=== PATIENT | female | born 1990 | race Caucasian/White ===

== ENCOUNTER → 2017-12-03 09:15 | Outpatient (CLI) | payer OTHER, SELFPAY ==
[2017-12-03 13:48] LABS: Urine N gonorrhoeae NOT DETECTED
[2017-12-03 14:08] LABS: Urine Chlamydia NOT DETECTED
== END ==
PROVIDERS: PCP Family Medicine; Visit Provider Family Medicine
DX: Z11.3 Encounter for screening for infections with a predominantly sexual mode of transmission (principal); Z11.8 Encounter for screening for other infectious and parasitic diseases
CPT/HCPCS: 87491; 87591

== ENCOUNTER → 2018-03-29 08:56 | Outpatient (CLI) | payer OTHER, SELFPAY ==
--- NOTE | 2018-03-29 09:08 | DI.MRI.S_ITS ---
PROCEDURE: MR HEAD/BRAIN WO/W CON INDICATIONS: possible MS TECHNIQUE: Noncontrast axial T1 spin echo, axial T2 fast spin echo, sagittal and axial FLAIR, coronal T2 fast spin echo, axial gradient echo, axial diffusion and ADC through the brain. After the administration of contrast, axial and coronal 3D VIBE or T1 spin echo with fat saturation through the brain. COMPARISON: None. FINDINGS: Image quality: Excellent. CSF Spaces: Basal cisterns are patent. No extra-axial fluid collections. Ventricles are normal in size and shape. Brain: No midline shift. No intracranial bleeds or masses. No abnormal intracranial enhancement. The brainstem appears normal. Diffusion-weighted images demonstrate no acute ischemic insults. No chronic ischemic insults. Normal intravascular flow voids are present. Skull and face: Calvarial marrow is normal in signal. Orbits appear normal. Sinuses: Mucous retention cyst versus polyp is noted in the left sphenoid sinus. Minimal mucosal thickening noted in the maxillary sinuses. The mastoids appear clear. IMPRESSION: 1. No acute intracranial disease process. 2. No abnormal intracranial mass or suspicious postcontrast enhancement. 3. No abnormal intracranial signal. 4. Left sphenoid sinus mucous retention cyst versus polyp. Minimal bilateral maxillary sinus mucosal thickening. Dictated by: Gisell Chavez MD, PhD on 03/29/2018 at 10:30 Approved by: Gisell Chavez MD, PhD on 03/29/2018 at 10:34
--- NOTE | 2018-03-29 09:08 | DI.RAD.S_ITS ---
PROCEDURE: XR CHEST 2V INDICATIONS: chest pain with inspiration TECHNIQUE: 2 views of the chest were acquired. COMPARISON: [facility], , CHEST 2 VIEW, 09/07/2014, 10:38. FINDINGS: Surgical changes and devices: None. Lungs and pleura: Lungs are clear. No pleural effusions or pneumothorax. Mediastinum: Mediastinal contours are normal. Heart size is normal. Bones and chest wall: No suspicious bony abnormalities. Soft tissues appear unremarkable. IMPRESSION: No acute disease Dictated by: Florian Starks M.D. on 03/29/2018 at 10:19 Approved by: Florian Starks M.D. on 03/29/2018 at 10:20
[2018-03-29 09:46] LABS: Add Manual Diff / Slide Review NO; Basophils Absolute Auto 100 /uL (0-100); Basophils Percent Auto 1.3 % (0-2); Eosinophils Absolute Auto 200 /uL (0-450); Hematocrit 41.5 % (36-46); Hemoglobin 13.3 g/dL (12.0-16.0); Lymphocytes Absolute Auto 1900 /uL (1100-4500); Lymphocytes Percent Auto 46.2 % (25-40); Mean Corpuscular HGB Conc 32.1 % (30-36); Mean Corpuscular Hemoglobin 26.8 PG (26-34); Mean Corpuscular Volume 83.6 fL (80-100); Monocytes Absolute Auto 300 /uL (0-900); Monocytes Percent Auto 7.2 % (3-14); Neutrophils Absolute Auto 1600 /uL (1500-7000); Neutrophils Percent Auto 39.3 % (50-75); Platelet Count 369 X10^3/uL (150-400); Red Blood Cell Count 4.97 X10^6/uL (4.0-5.2); Red Cell Distribution Width 14.3 % (11.6-14.8); White Blood Cell Count 4.1 X10^3/uL (4.5-11.0)
[2018-03-29 10:09] LABS: Alanine Aminotransferase 19 IU/L (9-52); Albumin Globulin Ratio 1.2 (1.0-2.8); Alkaline Phosphatase 72 U/L (38-126); Aspartate Aminotransferase 25 IU/L (14-36); BUN Creatinine Ratio 18.9 (6-22); Bilirubin Total 0.5 mg/dL (0.2-1.3); Blood Urea Nitrogen 17 mg/dL (7-17); Calcium 9.8 mg/dL (8.4-10.2); Carbon Dioxide 26 mmol/L (22-32); Chloride 100 mmol/L (98-107); Estimated Glomerular Filt Rate > 60.0 mL/min (>60); Globulin 4.1 g/dL (1.7-4.1); Glucose 95 mg/dL (70-100); HEMOLYSIS < 15 (0-50); Potassium 4.6 mmol/L (3.4-5.1); Sodium 139 mmol/L (137-145); Total Protein 9.1 g/dL (6.3-8.2)
[2018-03-29 10:35] LABS: C-Reactive Protein Quant < 0.5 mg/dL (<1.0)
[2018-03-29 10:38] LABS: TSH w/ Reflex to FT4 2.09 uIU/mL (0.47-4.68)
[2018-03-29 10:56] LABS: Vitamin B12 402 pg/mL (239-931)
[2018-03-29 10:57] LABS: Vitamin D 25 Hydroxy (D3) 39.1 ng/mL (30.0-100.0)
[2018-03-31 18:19] LABS: Lamotrigine Lamictal 9.4 mcg/mL (4.0-18.0)
[2018-04-02 11:36] LABS: ANA Screen NEGATIVE (Negative); DNA Antibody Crithidia IFA NEGATIVE (Negative); Rheumatoid Factor <14 IU/mL; Sjogren Antiboday SS-A <1.0 NEG AI (<1.0 NEGATIVE); Sjogren Antiboday SS-B <1.0 NEG AI (<1.0 NEGATIVE); Sm Antibody <1.0 NEG AI (<1.0 NEGATIVE); Sm/RNP Antibody <1.0 NEG AI (<1.0 NEGATIVE)
== END ==
LOC: MRI 09:06 → LAB 09:08
PROVIDERS: Family Provider Family Medicine; PCP Family Medicine; Visit Provider Family Medicine
DX: R29.818 Other symptoms and signs involving the nervous system (principal); R20.2 Paresthesia of skin; G40.909 Epilepsy, unspecified, not intractable, without status epilepticus; E55.9 Vitamin D deficiency, unspecified; R29.90 Unspecified symptoms and signs involving the nervous system; R07.9 Chest pain, unspecified
CPT/HCPCS: 36415; 70553; 71046; 80053; 80175; 82306; 82607; 84443; 85025; 86038; 86140; 86430; A9579

== ENCOUNTER → 2018-05-27 15:43 | Outpatient (CLI) | payer OTHER, SELFPAY | PROVIDERS: Family Provider Family Medicine; PCP Family Medicine; Visit Provider Family Medicine | DX: N89.8 Other specified noninflammatory disorders of vagina (principal) | CPT/HCPCS: 87210 ==

== ENCOUNTER → 2018-06-07 07:42 | Outpatient (CLI) | payer OTHER, SELFPAY | PROVIDERS: Family Provider Family Medicine; PCP Family Medicine; Visit Provider Family Medicine | DX: R53.83 Other fatigue (principal) | CPT/HCPCS: 36415; 87207 ==

== ENCOUNTER → 2018-06-11 17:18 | Outpatient (CLI) | payer OTHER, SELFPAY ==
[2018-06-17 12:16] LABS: Travel History NG; When Visited NG
== END ==
PROVIDERS: PCP Family Medicine; Visit Provider Family Medicine
DX: R53.83 Other fatigue (principal)
CPT/HCPCS: 87207

== ENCOUNTER → 2019-06-20 13:10 | Outpatient (CLI) | payer OTHER, SELFPAY ==
--- NOTE | 2019-06-20 13:11 | DI.US.S_ITS ---
PROCEDURE: US PELVIC COMPLETE INDICATIONS: PELVIC PAIN, IUD TECHNIQUE: Real-time scanning was performed of the pelvic organs, with image documentation. Additional endovaginal scanning was necessary due to incomplete visualization of the adnexal and endometrial structures by transabdominal scanning. COMPARISON: None. FINDINGS: Transabdominal scanning: Limited scanning through the kidneys shows no hydronephrosis. No pathologic free abdominal or pelvic fluid. Endovaginal scanning: Uterus: Uterus is normal in size at 3.6 x 5.1 x 6.9 cm. The endometrium measures 3.7 mm in combined thickness. Centrally positioned IUD is noted. Ovaries: Right ovary measures 3.6 x 2.6 x 3.0 cm, and contains a complex presumed hemorrhagic cyst measuring 1.3 x 1.6 x 1.6 cm. The left ovary measures 3.5 x 2.0 x 2.3 cm, normal in echotexture. IMPRESSION: IUD in normal position centrally placed within the endometrial canal. No sign of ovarian inflammation or abnormal fluid collection. Presumed hemorrhagic cyst measuring only 1.6 cm in maximal dimension on the right. A definite source of pain is not found. Dictated by: Karri Chen M.D. on 06/20/2019 at 15:05 Approved by: Karri Chen M.D. on 06/20/2019 at 15:07
== END ==
PROVIDERS: PCP Family Medicine; Referring Provider Family Medicine; Visit Provider Family Medicine
DX: R10.2 Pelvic and perineal pain (principal); N83.291 Other ovarian cyst, right side; Z97.5 Presence of (intrauterine) contraceptive device
CPT/HCPCS: 76830; 76856

== ENCOUNTER → 2020-12-24 09:12 | Outpatient (CLI) | payer OTHER, SELFPAY ==
--- NOTE | 2020-12-24 09:13 | DI.US.S_ITS ---
PROCEDURE: US OB <= 14 WEEKS FETUS INDICATIONS: INITIAL VIABILITY DATING OUTSIDE/PRIOR DATING DATA: Last menstrual period (LMP): 10/28/2020 LMP-based estimated date of delivery (ROXANE): 08/04/2021. First dating scan (date and location): 12/24/2020. Estimated date of delivery (ROXANE) from first dating scan: 08/04/2021. TECHNIQUE: Real-time scanning was performed of the fetus and maternal pelvic organs, with image documentation. Endovaginal scanning was also performed to better visualize the fetus and maternal ovaries. COMPARISON: None. FINDINGS: Embryo: 1.7 cm corresponding to 8 weeks 1 day. Heart rate: 150 Measurement variability in dating: +/- 4 weeks by LMP, +/- 7 days by mean sac diameter (use before 6 weeks gestation if crown-rump length not able to be measured), +/- 5 days by crown-rump length (up to 8 weeks 6 days gestation), +/- 7 days by crown-rump length (up to 13 weeks 6 days gestation). Maternal organs: The left ovary is not visualized. Right corpus luteal cyst present. IMPRESSION: 8 week 1 day single living IUP. Dictated by: Benito Freeman RR Interpreted: Misael Hernandez MD on 12/24/2020 at 10:08 Transcribed by: ROMY on 12/24/2020 at 10:09 Approved by: Misael Hernandez M.D. on 12/24/2020 at 11:23
== END ==
PROVIDERS: PCP Family Medicine; Referring Provider Family Medicine; Visit Provider Family Medicine
DX: Z34.01 Encounter for supervision of normal first pregnancy, first trimester (principal); Z3A.08 8 weeks gestation of pregnancy
CPT/HCPCS: 76801

== ENCOUNTER 2021-02-03 18:29 | Emergency (ER) | payer OTHER, SELFPAY ==
--- NOTE | 2021-02-03 18:35 | DI.US.S_ITS ---
PROCEDURE: US OB LIMITED INDICATIONS: BLEEDING OUTSIDE/PRIOR DATING DATA: Last menstrual period (LMP): 10/28/2020. LMP-based estimated date of delivery (ROXANE): 08/04/2021. First dating scan (date and location): 12/24/2020. Estimated date of delivery (ROXANE) from first dating scan: 08/04/2021. TECHNIQUE: Real-time scanning was performed of the fetus, with image documentation. Endovaginal scanning: No COMPARISON: [facility], OB <= 14 WEEKS FETUS, 12/24/2020, 9:29. FINDINGS: A single living intrauterine gestation is present. Presentation: Variable. Placenta: Placental position is anterior, without previa. heart rate: 162 beats per minute. Portal-rump length is 69 mm, corresponding to a 13 week 1 day gestation. There is a possible secondary anti embryo an infestation all sac corresponding to an 8 week 2 day gestation, measuring roughly 46 mm diameter. IMPRESSION: 1. Single living intrauterine gestation. 2. Anechoic focus adjacent to the living intrauterine gestation, which may represent demise of a twin versus loculated amniotic fluid collection versus chronic perigestational hemorrhage. No evidence of acute perigestational hemorrhage. Dictated by: Renetta Heller M.D. on 02/03/2021 at 20:54 Approved by: Renetta Heller M.D. on 02/03/2021 at 20:57
[2021-02-03 18:44] VITALS: BP 144/85; PULSE 108; RESP 18; TEMP 37.3; O2SAT 97; BMI 23.3
--- NOTE | 2021-02-03 18:45 | ED.FEMALEGU ---
HPI - Female Genitourinary General Chief complaint: Vaginal Bleeding Stated complaint: 14 Wks Preg, Bleeding/Pain Time Seen by Provider: 02/03/21 18:35 History of Present Illness HPI Narrative: 30-year-old female nonsmoker with history of epilepsy presents with her significant other and a chief complaint of lower pelvic cramping and vaginal bleeding for the past hour or 2. She is a at 14 weeks that had a normal ultrasound at 8 weeks. She is not dizzy nor weak or lightheaded. She has had no fever or chills. She is no longer having any discomfort. She denies any abnormal activities, changes in medications or diet. She states that she was in her normal state of health other than being somewhat constipated for the past few days. About 30 minutes prior to arrival she felt some lower abdominal cramping and upon standing felt blood dripping down her leg. She had some sharp pain which was very brief in without any obvious provocation or palliation which resolved prior to her arrival. Related Data Home Medications Medication Instructions Recorded Confirmed Lactobacillus acidophilus 10 10,000 mmu cells PO DAILY 01/06/21 01/07/21 billion cell capsule (Probiotic) folic acid 1 mg tablet 1 mg PO DAILY 01/06/21 01/07/21 lamotrigine 200 mg tablet,extended 200 mg PO DAILY 01/06/21 01/07/21 release 24 hr lamotrigine 25 mg tablet,extended 25 mg PO DAILY PRN 01/06/21 01/07/21 release 24 hr prenat.vits,uzma,foa-karm-ybxtg 1 tab PO DAILY 01/06/21 01/07/21 Previous Rx's Medication Instructions Recorded lorazepam 1 mg tablet 0.5 mg PO DAILY PRN #4 tab 06/15/20 Allergies Allergy/AdvReac Type Severity Reaction Status Date / Time No Known Drug Allergies Allergy Verified 01/06/21 15:41 Patient History Medical History Chronic back pain (~1996) Encounter for removal of intrauterine contraceptive device (IUD) (~06/2020) Epilepsy (~2001) Fibromyalgia (~2007) Sinusitis Surgical History H/O oral surgery (~2004) [place] teeth extracted (~2019) Family History Mother Hyperlipidemia Grandfather Myocardial infarction Grandmother History of heart attack Diabetes mellitus Hypertension Grandfather History of heart attack Hypertension Diabetes mellitus Father Hypertension Diabetes mellitus Grandmother No problems noted. Exam Narrative Exam Narrative: GENERAL: [30] year old patient appears stated age. Well-developed patient, in mild distress. GCS 15, anxious, tearful HEAD: Atraumatic. Normocephalic. EYES: Pupils equal round and reactive. Extraocular motions intact. No scleral icterus. No injection or drainage. ENT: Nose without bleeding, purulent drainage. Throat without erythema, tonsillar hypertrophy or exudate. Airway patent. NECK: Trachea midline. Non tender CARDIOVASCULAR: Regular rate and rhythm without murmurs, gallops, or rubs. RESPIRATORY: Clear to auscultation. Breath sounds equal bilaterally. No wheezes, rales, or rhonchi. GASTROINTESTINAL: Abdomen soft, mild tenderness in the suprapubic region, nondistended. EXTREMITIES: No edema or joint tenderness. BACK: Nontender without deformity or crepitance. No flank tenderness. NEURO: AOx3. SKIN: No rash or erythema of visible areas Initial Vital Signs Initial Vital Signs: Vital Signs Temperature 99.2 F 02/03/21 18:44 Pulse Rate 108 H 02/03/21 18:44 Respiratory Rate 18 02/03/21 18:44 Blood Pressure 144/85 H 02/03/21 18:44 Pulse Oximetry 97 02/03/21 18:44 Course Orders Ordered: ED Orders 02/03/21 18:35 US OB limited Stat Complete Blood Count AUTO DIFF Stat Comprehensive Metabolic Panel Stat HCG Quantitative /Beta subunit Stat 02/03/21 18:36 Type and Screen Stat 02/03/21 18:48 Lamotrigine Lamictal Stat 02/03/21 21:10 Urine Microscopic Stat Vital Signs Vital signs: Vital Signs - 8 hr 02/03/21 18:44 02/03/21 21:22 Temperature 99.2 F Pulse Rate 108 H 84 Respiratory Rate 18 20 Blood Pressure 144/85 H 106/80 Pulse Oximetry 97 100 MDM - Female Genitourinary Lab Data Result diagrams: 02/03/21 18:35 02/03/21 18:35 Labs: Lab Results 02/03/21 02/03/21 02/03/21 Range/Units 18:35 18:35 18:36 WBC 6.1 (4.5-11.0) X10^3/uL RBC 4.09 (4.0-5.2) X10^6/uL Hgb 12.1 (12.0-16.0) g/dL Hct 35.3 L (36-46) % MCV 86.2 (80-100) fL MCH 29.5 (26-34) PG MCHC 34.3 (30-36) % RDW 13.5 (11.6-14.8) % Plt Count 287 (150-400) X10^3/uL Neut % (Auto) 55.1 (50-75) % Lymph % (Auto) 32.4 (25-40) % [place] % (Auto) 11.4 (3-14) % Eos % (Auto) 0.5 L (2-4) % Baso % (Auto) 0.6 (0-2) % Neut # (Auto) 3400 (8699-1730) /uL Lymph # (Auto) 2000 (2646-6861) /uL [place] # (Auto) 700 (0-900) /uL Eos # (Auto) 0 (0-450) /uL Baso # (Auto) 0 (0-100) /uL Sodium 134 L (137-145) mmol/L Potassium 3.6 (3.4-5.1) mmol/L Chloride 102 (98-107) mmol/L Carbon Dioxide 24 (22-32) mmol/L BUN 9 (7-17) mg/dL Creatinine 0.59 (0.52-1.04) mg/dL Estimated GFR > 60.0 (>60) mL/min BUN/Creatinine Ratio 15.3 (6-22) Glucose 101 H (70-100) mg/dL Calcium 9.7 (8.4-10.2) mg/dL Total Bilirubin 0.3 (0.2-1.3) mg/dL AST 28 (14-36) IU/L ALT 16 (<35) IU/L Alkaline Phosphatase 56 (38-126) U/L Total Protein 7.6 (6.3-8.2) g/dL Albumin 4.1 (3.5-5.0) g/dL Globulin 3.5 (1.7-4.1) g/dL Albumin/Globulin Ratio 1.2 (1.0-2.8) HCG, Quant 07871 mIU/mL Urine RBC (0-5/HPF) Urine WBC (0-5/HPF) Urine Bacteria (None) Ur Culture Indicated? Blood Type O Positive Antibody Screen Negative 02/03/21 Range/Units 21:10 WBC (4.5-11.0) X10^3/uL RBC (4.0-5.2) X10^6/uL Hgb (12.0-16.0) g/dL Hct (36-46) % MCV (80-100) fL MCH (26-34) PG MCHC (30-36) % RDW (11.6-14.8) % Plt Count (150-400) X10^3/uL Neut % (Auto) (50-75) % Lymph % (Auto) (25-40) % [place] % (Auto) (3-14) % Eos % (Auto) (2-4) % Baso % (Auto) (0-2) % Neut # (Auto) (4724-9726) /uL Lymph # (Auto) (5867-9508) /uL [place] # (Auto) (0-900) /uL Eos # (Auto) (0-450) /uL Baso # (Auto) (0-100) /uL Sodium (137-145) mmol/L Potassium (3.4-5.1) mmol/L Chloride (98-107) mmol/L Carbon Dioxide (22-32) mmol/L BUN (7-17) mg/dL Creatinine (0.52-1.04) mg/dL Estimated GFR (>60) mL/min BUN/Creatinine Ratio (6-22) Glucose (70-100) mg/dL Calcium (8.4-10.2) mg/dL Total Bilirubin (0.2-1.3) mg/dL AST (14-36) IU/L ALT (<35) IU/L Alkaline Phosphatase (38-126) U/L Total Protein (6.3-8.2) g/dL Albumin (3.5-5.0) g/dL Globulin (1.7-4.1) g/dL Albumin/Globulin Ratio (1.0-2.8) HCG, Quant mIU/mL Urine RBC None seen (0-5/HPF) Urine WBC None seen (0-5/HPF) Urine Bacteria None seen (None) Ur Culture Indicated? Cult not indicated Blood Type Antibody Screen Urine Dip Bedside Urine Glucose Negative Bedside Urine Bilirubin - Negative Bedside Urine Ketone +++ 80 Urine Specific [place] 1.03 Bedside Urine Occult Blood +++ Bedside Urine pH 6 Bedside Urine Protein + 30 Bedside Urine Urobilinogen - Negative Bedside Urine Nitrite - Negative Bedside Urine Leukocytes - Negative Esterase MDM Narrative Medical decision making narrative: Patient with reassuring history and physical exam. Vitals are stable, minimal ongoing bleeding, H&H stable. No indication or need for RhoGAM. Ultrasound reassuring. I have consulted with on-call OB, given normal ultrasound at 8 weeks a twin gestation is highly unlikely. Most likely source of bleeding is and old subchorionic hemorrhage that ?let go ?today. Patient's pain is well controlled and she is tolerating orals. She is given extensive return precautions and questions have been answered to her apparent satisfaction Discharge Plan Departure Patient Disposition: Home Clinical Impression: Hemorrhage affecting in second trimester Instructions: DI for Vaginal Bleeding During Activity Restrictions/Additional Instructions: *You have been diagnosed with [vaginal bleeding in . Your history, physical exam, labs and ultrasound are very reassuring. *What to do: *Please continue to take your regular medications as directed. [ ] New medication prescriptions sent to your pharmacy: [ ] [ ] New medication written as a paper prescription [x ] No new medications given *Please follow up with your primaryOB provider in 2-3 days, call for an appointment. Let them know you were seen in the Emergency Department and that we ask that you be seen in follow up. We will electronically transmit a record of today's note. Dr. Llamas will likely repeat some labs and maybe an ultrasound *Return to Emergency Department if you should have any new, worsening or concerning symptoms, such as [increased or more persistent pain, bleeding through more than 1 pad per hour, fever greater than 101 F or other bothersome symptoms Prescriptions: No Action lorazepam 1 mg tablet 0.5 mg PO DAILY PRN (Reason: lab draw) Qty: 4 0RF lamotrigine 200 mg tablet extended release 24hr 200 mg PO DAILY 0RF lamotrigine 25 mg tablet extended release 24hr 25 mg PO DAILY PRN0RF prenat.vits,uzma,skc-jxji-igikw Tablet 1 tab PO DAILY 0RF folic acid 1 mg tablet 1 mg PO DAILY 0RF Probiotic 10 billion cell capsule 10,000 mmu cells PO DAILY 0RF Referrals: Gilda Llamas DO [Primary Care Provider] -
[2021-02-03 19:17] LABS: Add Manual Diff / Slide Review NO; Basophils Absolute Auto 0 /uL (0-100); Basophils Percent Auto 0.6 % (0-2); Eosinophils Absolute Auto 0 /uL (0-450); Eosinophils Percent Auto 0.5 % (2-4); Hematocrit 35.3 % (36-46); Hemoglobin 12.1 g/dL (12.0-16.0); Lymphocytes Absolute Auto 2000 /uL (1100-4500); Lymphocytes Percent Auto 32.4 % (25-40); Mean Corpuscular HGB Conc 34.3 % (30-36); Mean Corpuscular Hemoglobin 29.5 PG (26-34); Mean Corpuscular Volume 86.2 fL (80-100); Monocytes Absolute Auto 700 /uL (0-900); Monocytes Percent Auto 11.4 % (3-14); Neutrophils Absolute Auto 3400 /uL (1500-7000); Neutrophils Percent Auto 55.1 % (50-75); Platelet Count 287 X10^3/uL (150-400); Red Blood Cell Count 4.09 X10^6/uL (4.0-5.2); Red Cell Distribution Width 13.5 % (11.6-14.8); White Blood Cell Count 6.1 X10^3/uL (4.5-11.0)
[2021-02-03 19:28] LABS: Alanine Aminotransferase 16 IU/L (<35); Albumin 4.1 g/dL (3.5-5.0); Albumin Globulin Ratio 1.2 (1.0-2.8); Alkaline Phosphatase 56 U/L (38-126); Aspartate Aminotransferase 28 IU/L (14-36); BUN Creatinine Ratio 15.3 (6-22); Bilirubin Total 0.3 mg/dL (0.2-1.3); Blood Urea Nitrogen 9 mg/dL (7-17); Calcium 9.7 mg/dL (8.4-10.2); Carbon Dioxide 24 mmol/L (22-32); Chloride 102 mmol/L (98-107); Estimated Glomerular Filt Rate > 60.0 mL/min (>60); Globulin 3.5 g/dL (1.7-4.1); Glucose 101 mg/dL (70-100); HEMOLYSIS < 15 (0-50); Potassium 3.6 mmol/L (3.4-5.1); Sodium 134 mmol/L (137-145); Total Protein 7.6 g/dL (6.3-8.2)
[2021-02-03 19:45] LABS: HCG Quantitative /Beta subunit 14181 mIU/mL
[2021-02-03 21:22] VITALS: BP 106/80; PULSE 84; RESP 20; O2SAT 100
[2021-02-03 21:27] LABS: Bacteria Urine None Seen; Culture Indicated Urine Cult Not Indicated; RBC Urine None Seen (0-5/HPF); WBC Urine None Seen (0-5/HPF)
[2021-02-09 12:04] LABS: Lamotrigine Lamictal 5.1 ug/mL (2.0-20.0)
== END 2021-02-03 21:37 | disposition home or self-care (01) ==
PROVIDERS: Emergency Provider Emergency Medicine; PCP Family Medicine
DX: O20.9 Hemorrhage in early pregnancy, unspecified (principal); Z3A.14 14 weeks gestation of pregnancy
CPT/HCPCS: 36415; 76812; 76815; 80053; 80175; 81003; 81015; 84702; 85025; 86850; 86900; 86901; 99284

== ENCOUNTER → 2021-02-25 06:52 | Outpatient (CLI) | payer OTHER, SELFPAY ==
[2021-02-25 07:49] LABS: Add Manual Diff / Slide Review NO; Basophils Absolute Auto 0 /uL (0-100); Basophils Percent Auto 0.5 % (0-2); Eosinophils Absolute Auto 100 /uL (0-450); Eosinophils Percent Auto 2.1 % (2-4); Lymphocytes Absolute Auto 1700 /uL (1100-4500); Lymphocytes Percent Auto 29.1 % (25-40); Mean Corpuscular HGB Conc 34.4 % (30-36); Mean Corpuscular Hemoglobin 29.9 PG (26-34); Mean Corpuscular Volume 86.8 fL (80-100); Monocytes Absolute Auto 400 /uL (0-900); Monocytes Percent Auto 7.4 % (3-14); Neutrophils Absolute Auto 3600 /uL (1500-7000); Neutrophils Percent Auto 60.9 % (50-75); Platelet Count 242 X10^3/uL (150-400); Red Blood Cell Count 3.69 X10^6/uL (4.0-5.2); White Blood Cell Count 5.9 X10^3/uL (4.5-11.0)
[2021-02-25 08:05] LABS: Appearance Urine UA CLEAR; Bilirubin Urine UA NEGATIVE (NEGATIVE); Color Urine UA YELLOW; Glucose Urine UA NEGATIVE (Negative); Ketones Urine UA NEGATIVE (NEGATIVE); Leukocyte Esterase Urine UA NEGATIVE (NEGATIVE); Nitrite Urine UA NEGATIVE (Negative); Occult Blood Urine UA TRACE-LYSED (Negative); Protein Urine UA NEGATIVE (Negative); Specific Gravity Urine UA 1.015 (1.000-1.035); Urobilinogen Urine UA 0.2 E.U./dL (0.2)
[2021-02-25 08:51] LABS: Hepatitis B Surface Antigen NEGATIVE s/c (NEGATIVE)
[2021-02-25 09:08] LABS: HIV 1 & 2 Ab/Ag 4th Gen Combo NEGATIVE (NEGATIVE); Hep C Virus Ab w/Reflex Quant NEGATIVE s/c (NEGATIVE)
[2021-02-26 06:36] LABS: RPR Screen Non Reactive (Non Reactive)
[2021-02-26 08:12] LABS: Varicella IgG Antibody 1403 index (Immune >165)
[2021-02-28 22:59] LABS: AFP, Serum 22.5 ng/mL (.); Calc Gestational Age Ultrasound (.); Estriol, Free 0.63 ng/mL (.); Inhibin A, Dimeric 84.83 pg/mL (.); Inhibin A, MoM 0.49 (.); Maternal Ethnicity Caucasian (.); Maternal Weight 128 lbs (.); Number of Fetuses No (.); OSBR Risk 1 IN 10000 (.); Results Report (.); Test Results *Screen Positive* (.); hCG, Serum 11092 mIU/mL (.)
== END ==
PROVIDERS: PCP Family Medicine; Referring Provider Psychiatry & Neurology Neurology; Visit Provider Psychiatry & Neurology Neurology
DX: G40.909 Epilepsy, unspecified, not intractable, without status epilepticus (principal); Z34.01 Encounter for supervision of normal first pregnancy, first trimester; Z34.92 Encounter for supervision of normal pregnancy, unspecified, second trimester; Z3A.17 17 weeks gestation of pregnancy
CPT/HCPCS: 36415; 80055; 80175; 81003; 82105; 82677; 84702; 86336; 86787; 86803; 86850; 86900; 86901; 87086; 87389

== ENCOUNTER → 2021-03-17 07:43 | Outpatient (CLI) | payer OTHER, SELFPAY | PROVIDERS: PCP Family Medicine; Referring Provider Family Medicine; Visit Provider Family Medicine | DX: Z34.90 Encounter for supervision of normal pregnancy, unspecified, unspecified trimester (principal); Z53.8 Procedure and treatment not carried out for other reasons ==

== ENCOUNTER 2021-04-27 15:37 | Outpatient (CLI) | payer OTHER, SELFPAY ==
--- NOTE | 2021-04-27 17:01 | PM.OBTRLD ---
Visit Information Visit Information Date of evaluation: 04/27/21 Primary OB Provider: Gilda Llamas Reason for Evaluation: Yes non-stress test non-stress test reason: decreased movement Comments/Additional reasons for admission: Pt is a 30yo at 25w6d here for decreased movement. Pt reports little to no movement for the last 3 days. She has had intermittent sharp abdominal cramping at night as well. No vaginal bleeding, LOF. complicated by Trisomy 18. [facility] Medical History (Updated 04/27/21 @ 17:03 by Indigo Underwood MD) Chronic back pain (~1996) Encounter for removal of intrauterine contraceptive device (IUD) (~06/2020) Epilepsy (~2001) Fibromyalgia (~2007) Sinusitis Trisomy 18 of fetus in current Surgical History H/O oral surgery (~2004) [place] teeth extracted (~2019) Family History Mother Hyperlipidemia Grandfather Myocardial infarction Grandmother History of heart attack Diabetes mellitus Hypertension Grandfather History of heart attack Hypertension Diabetes mellitus Father Hypertension Diabetes mellitus Grandmother No problems noted. 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.) current occupational exposures/hazards: No special calderon needs: No seatbelt use: always do you feel safe at home: Yes Smoking Status: Never smoker second hand exposure: No alcohol intake: former (Not since 07/2020 once they started trying.) substance use type: does not use during the past year weight has: remained stable well-balanced diet: about half the time (r/t nausea, gag reflex.) daily servings fruits/ve-4 caffeine: No Type(s) of exercise: walking and normal ROM and activity frequency: daily duration: 30-45 minutes/day Evaluation Evaluation Baseline heart rate: 150 Variability: Moderate (11-25) monitor accelerations: Present Monitor Decelerations: Absent Category of Tracing: Reactive Diagnosis, Plan/Disposition Final Diagnosis (1) Trisomy 18 of fetus in current : Status: Acute (2) Decreased movement: Status: Acute Plan/Disposition Plan: Pt is a 30yo at 25w6d here due to decreased movement in the setting of complicated by Trisomy 18. Reactive NST today. Discussed kick counts at home. Pt already very aware of high risk of intrauterine demise due to Trisomy 18. Stable for d/c home today. OB Disposition: home
== END 2021-04-27 16:45 | disposition home or self-care (01) ==
LOC: LABOR 15:52 → OB 04-28 07:48
PROVIDERS: PCP Family Medicine; Referring Provider Obstetrics & Gynecology; Visit Provider Obstetrics & Gynecology
DX: O36.8120 Decreased fetal movements, second trimester, not applicable or unspecified (principal); Z3A.25 25 weeks gestation of pregnancy; O35.1XX0 Maternal care for (suspected) chromosomal abnormality in fetus, not applicable or unspecified
CPT/HCPCS: 59025; G0378; G0379

== ENCOUNTER → 2021-05-27 07:00 | Outpatient (CLI) | payer OTHER, SELFPAY ==
[2021-05-27 08:40] LABS: Hematocrit 33.7 % (36-46); Hemoglobin 11.4 g/dL (12.0-16.0)
[2021-05-27 08:55] LABS: GTT (PREG) 1 Hour PP 50gm Dose 91 mg/dL (76-139)
[2021-05-30 14:14] LABS: Lamotrigine Lamictal 5.1 ug/mL (2.0-20.0)
== END ==
PROVIDERS: PCP Family Medicine; Referring Provider Family Medicine; Visit Provider Family Medicine
DX: G40.909 Epilepsy, unspecified, not intractable, without status epilepticus (principal); Z3A.27 27 weeks gestation of pregnancy; O35.1XX0 Maternal care for (suspected) chromosomal abnormality in fetus, not applicable or unspecified
CPT/HCPCS: 36415; 80175; 82950; 85014; 85018

== ENCOUNTER 2021-05-30 03:26 | Inpatient (IN) | payer OTHER, SELFPAY ==
[2021-05-30] MEDS: LACTATED RINGERS 1,000 ML 100 ML IV (03:45)
[2021-05-30] MEDS: fentaNYL 100 MCG/2 ML INJ IV ×3 (04:00→10:13)
[2021-05-30 04:01] LABS: Add Manual Diff / Slide Review NO; Basophils Absolute Auto 100 /uL (0-100); Basophils Percent Auto 1.1 % (0-2); Eosinophils Absolute Auto 200 /uL (0-450); Eosinophils Percent Auto 1.7 % (2-4); Hematocrit 32.1 % (36-46); Lymphocytes Absolute Auto 3000 /uL (1100-4500); Lymphocytes Percent Auto 29.1 % (25-40); Mean Corpuscular HGB Conc 34.1 % (30-36); Mean Corpuscular Hemoglobin 29.4 PG (26-34); Monocytes Absolute Auto 900 /uL (0-900); Monocytes Percent Auto 8.6 % (3-14); Neutrophils Absolute Auto 6100 /uL (1500-7000); Neutrophils Percent Auto 59.5 % (50-75); Platelet Count 301 X10^3/uL (150-400); Red Blood Cell Count 3.73 X10^6/uL (4.0-5.2); Red Cell Distribution Width 13.8 % (11.6-14.8); White Blood Cell Count 10.3 X10^3/uL (4.5-11.0)
[2021-05-30 04:02] VITALS: BP 126/80
--- NOTE | 2021-05-30 04:03 | PM.OBHP.1 ---
OB HPI Date/Time Date of admission: 05/30/21 Date Patient Seen: 05/30/21 Time Patient Seen: 04:03 History of Present Condition Chief complaint: LABOR : 1 Para: 0 Estimated Date of Delivery: 08/04/21 Estimated Gestational Age (weeks): 30 Narrative: Yessica Rae is a 30 year old female admitted with premature labor History of Present care: good care, initiated at week # (10), number of visits (6) and pounds weight gain (21) Dating criteria: LMP confirmed by 1st trimester US Ultrasounds: abnormal US findings Abnormal ultrasound findings: Findings consistent with trisomy 18 Obstetrical complications: none Medical complications: neurological (Seizure disorder on Lamictal) Preadmission Labs Blood type: O (+) positive -: Antibody screen: negative, HBsAG: negative, HIV: negative and RPR/VDLR: negative -: Chlamydia screen: not detected and Gonorrhea screen: not detected -: Rubella: immune and Varicella: immune HCAB: negative Quad screen: Abnormal Cell-free DNA: Trisomy 18 female 1 hr GTT: 91 Evaluation Evaluation Baseline heart rate: 130 Variability: Moderate (11-25) Monitor Decelerations: Prolonged Contraction Frequency (minutes): 5 Uterine Contraction Intensity: Moderate Category of Tracing: Non-reactive Status: Category lll Dilation (cm): 3 Effacement (%): 0 station: -4 Consistency: firm [facility] Medical History (Updated 05/06/21 @ 13:01 by Gilda Llamas DO) Chronic back pain (~1996) Encounter for removal of intrauterine contraceptive device (IUD) (~06/2020) Epilepsy (~2001) Fibromyalgia (~2007) Sinusitis Trisomy 18 of fetus in current Surgical History H/O oral surgery (~2004) [place] teeth extracted (~2019) Family History Mother Hyperlipidemia Grandfather Myocardial infarction Grandmother History of heart attack Diabetes mellitus Hypertension Grandfather History of heart attack Hypertension Diabetes mellitus Father Hypertension Diabetes mellitus Grandmother No problems noted. Social History marital status: number of children: 0 household members: spouse and family lives independently: Yes pets and animals: Yes (2 fish, 1 hamster.) education level: college occupational status: employed current occupational exposures/hazards: No special calderon needs: No seatbelt use: always do you feel safe at home: Yes Smoking Status: Never smoker second hand exposure: No alcohol intake: former substance use type: does not use during the past year weight has: remained stable well-balanced diet: about half the time daily servings fruits/ve-4 caffeine: No Type(s) of exercise: walking and normal ROM and activity frequency: daily duration: 30-45 minutes/day Meds Home Medications and Allergies Home Medications Medication Instructions Recorded Confirmed Type Lactobacillus acidophilus 10 10,000 mmu cells PO DAILY 01/06/21 04/08/21 History billion cell capsule (Probiotic) folic acid 1 mg tablet 1 mg PO DAILY 01/06/21 04/08/21 History lamotrigine 200 mg tablet,extended 200 mg PO DAILY 01/06/21 04/08/21 History release 24 hr lamotrigine 25 mg tablet,extended 25 mg PO DAILY PRN 01/06/21 04/08/21 History release 24 hr prenat.vits,uzma,wes-vkne-olltp 1 tab PO DAILY 01/06/21 04/08/21 History lorazepam 1 mg tablet 0.5 mg PO BEDTIME PRN #15 tab 04/08/21 04/08/21 Rx ondansetron 4 mg disintegrating 4 mg PO Q8H PRN #30 tab 04/08/21 04/08/21 Rx tablet Allergies Allergy/AdvReac Type Severity Reaction Status Date / Time No Known Drug Allergies Allergy Verified 01/06/21 15:41 Review of Systems Review of Systems Narrative: Patient had some pressure and mild cramping since yesterday. Had significant vaginal bleeding at 3:30 a.m.. Presented to the hospital where she had spontaneous rupture membranes. She denies any fevers. No headaches, scotomata, epigastric pain. She has had movement. OB Exam Narrative Exam Narrative: HEENT exam within normal limits. Lungs are clear to auscultation percussion. Heart is regular rate and rhythm no S3-S4 murmurs. Abdomen is gravid and slightly tender. Ultrasound fetus is transverse. Extremities without edema and nontender. Objective Labs Result Diagrams: 05/30/21 03:40 Assessment and Plan Assessment and Plan Assessment and Plan narrative: 30 weeks gestation known trisomy 18 with vaginal bleeding and rupture membranes. Per patient request, comfort care only for the baby and section only if necessary for mother's health not for fetus.
--- NOTE | 2021-05-30 04:14 | PC.NURSE ---
Addendum entered by Malika Zamora R.N. 05/30/21 07:01: Correction: Pains began 05/29 midday. pt has known diagnosis of Trisomy 18, parents aware of nonviability. Original Note: 05/30/21 0400 Pt arrived to Center at 0320, in distress and pain. C/O pains since 05/28 and gush of blood at 0300 this morning. Gental exam at vaginal entroitus, membranes palpated. Dr Moon summoned to room. SROM at 0335 moderate amount of clear fluid, mixed with blood. Dr Moon arrived to bedside at 0337 SVE 2-3 cm. IV started 18 g to rt antecub. LR at bolus rate, 300ml infused. Pt given fentanyl 100mcg, see apr.
--- NOTE | 2021-05-30 04:22 | PC.NURSE ---
05/30/[address] Moon at bedside,US to determine position. SVE 4cm, placenta presenting.
[2021-05-30] MEDS: ONDANSETRON 4 MG/2 ML INJ IV ×2 (05:42→10:04)
[2021-05-30 06:26] LABS: COVID19 -Nasal RAPID Negative (Negative)
--- NOTE | 2021-05-30 06:34 | PM.OBPNLAB ---
Date/Time Date Patient Seen: 05/30/21 Time Patient Seen: 06:34 Pain Control Pain control: other (Fentanyl) Pelvic Exam Dilation (cm): 6 Effacement (%): 50 station: -4 Amniotic membrane status: Ruptured Comments: Estimated blood loss somewhere around 900 cc Contractions Contractions on admission: regular Monitor mode: Palpation Contraction pattern: Regular Contraction intensity: Moderate Status Heart Rate Baseline: 0 Comments: Attempt at external version without any movement of the fetus. Assessment and Plan Comments: Will likely need to proceed with section
[2021-05-30] MEDS: CEFAZOLIN 2 GM/20 ML SYRINGE IV (08:19)
--- NOTE | 2021-05-30 08:39 | SUR.OPER ---
Supine on Padded OR bed, head on pillow, safety belt at thigh, arms secured on padded arm boards at <90 degrees abduction. Bump under right buttock. Legs uncrossed with pillow under knees, gel pad to heels, tape over blanket to lower legs.
[2021-05-30] MEDS: ACETAMINOPHEN IV 1,000 MG/100 ML VIAL 400 MG IV (08:40)
--- NOTE | 2021-05-30 08:55 | SUR.OPER ---
Time of deliver 0834, demise female. placenta sent to OB with l&D RN.
--- NOTE | 2021-05-30 09:02 | PM.PREOP ---
Pre-operative Note COVID-19 COVID-19 status: Negative Result date/Date tested (Pos, Neg/Pending): 05/30/21 Criteria for continued procedure: Possibility delay results in more complex future surgery or treatment Interval Note History & Physical reviewed/Exam performed by Physician: Yes Changes to H&P: No
--- NOTE | 2021-05-30 09:06 | P.OP_ITS ---
Operative Date/Time/Diagnoses Date of procedure: 05/30/21 Time of procedure: 09:06 Pre-op diagnosis: Trisomy 18, 30 week gestation, intrauterine demise with placental abruption, transverse lie Post-op diagnosis: same Procedure & Clinicians Procedure: Primary low-transverse section Same procedure as scheduled: Yes Indications: Transverse lie unable to rotate to either vertex or breech presentation Surgeon: Tamara Moon Click Yes if Unassisted: No Linux Engineer: Gilda Llamas Anesthesia Type: General Operative Notes Findings: Normal tubes, ovaries, uterus. demise in transverse lie. Placental abruption. Closure Type: primary Intraoperative meds administered: Ketorolac and Pitocin Applied: Catheter (Spence) Estimated Blood Loss (mL): 200 Blood products transfused: none Procedure in detail: The patient was brought to the operating room where she underwent generalfor anesthesia. She was placed in a supine position. A Spence catheter was placed. Pulsatile stockings were placed and functional throughout the case. 2 g of Ancef were given IV prior to the incision. Warming was in place. The patient was prepped and draped in usual sterile fashion. A low transverse incision was made with a scalpel and the incision was carried down to the fascial layer which was incised transversely with scissors. The medical record assistant did her side of the incision. The midline attachments are superiorly and inferiorly. Some bleeding was controlled Bovie. The rectus muscles were in the midline and the peritoneal incision was made with no damage to internal structu res. The peritoneum was incised and superiorly and inferiorly. The incision was stretched with the surgeon and medical record assistant placing traction. Bladder blade was placed and a bladder flap was developed and the bladder held away from the lower uterine segment. An incision was made in the uterus with the scalpel and the incision was extended with stretching. The breech was elevated out of the abdomen and with fundal pressure by the medical record assistant the baby was delivered. The placenta delivered manually. The uterus was cleaned with clean laps. The uterine incision was closed in 2 layers of 0 chromic suture the first a running locking layer the second an imbricating layer. The medical record assistant was helping to expose the incision. The bladder peritoneum was repaired with 2-0 Vicryl suture. The gutters were cleaned of any remaining fluids and ovaries and tubes were observed to be normal. Adequate hemostasis was noted. The perineum was closed with 2-0 Vicryl suture. The fascia layer was closed with 0 Vicryl suture with 2 stitches. The medical record assistant repairing half the incision with helping to retract and expose the incision for the other half. The incision was irrigated and adequate hemostasis noted. The incision was closed with interrupted 3-0 Vicryl sutures and then a subcuticular stitch of 4-0 Vicryl suture. Steri- Strips were placed. The uterus was massaged to remove any clots. The patient went to recovery room in good condition. Counts of instruments and sponges were correct. Dr. Llamas was present throughout the case to assist with retraction, fundal pressure to deliver the infant, and suturing half the fascia. Complications: none [place] Baby 1: Infant Gender: Female Presentation: other (Transverse lie) Placental Delivery Description: Manual Removal score (1 min): 0 score (5 min): 0 score (10 min): 0 Post-operative Condition: stable Disposition: other ( Center) Aftercare: routine postop
[2021-05-30 09:22] VITALS: TEMP 36.1
[2021-05-30 09:27] VITALS: BP 93/63; PULSE 81; RESP 10; O2SAT 99
[2021-05-30] MEDS: OXYCODONE IR 5 MG TABLET PO ×2 (09:40→10:14)
[2021-05-30 09:52] VITALS: BP 107/64; PULSE 60; RESP 12; TEMP 36.2; O2SAT 100
[2021-05-30 10:12] LABS: Add Manual Diff / Slide Review NO; Basophils Absolute Auto 100 /uL (0-100); Basophils Percent Auto 0.3 % (0-2); Eosinophils Absolute Auto 0 /uL (0-450); Hematocrit 27.9 % (36-46); Hemoglobin 9.3 g/dL (12.0-16.0); Lymphocytes Absolute Auto 500 /uL (1100-4500); Mean Corpuscular HGB Conc 33.4 % (30-36); Mean Corpuscular Hemoglobin 29.1 PG (26-34); Monocytes Absolute Auto 500 /uL (0-900); Monocytes Percent Auto 2.9 % (3-14); Neutrophils Absolute Auto 15000 /uL (1500-7000); Neutrophils Percent Auto 93.8 % (50-75); Platelet Count 277 X10^3/uL (150-400); Red Blood Cell Count 3.21 X10^6/uL (4.0-5.2); Red Cell Distribution Width 13.9 % (11.6-14.8)
[2021-05-30 10:20] VITALS: BP 96/54; PULSE 57; RESP 16; TEMP 36.2; O2SAT 100
[2021-05-30 10:20] LABS: Prothrombin Time 11.5 SECONDS (10.1-12.7)
[2021-05-30 10:21] LABS: Fibrinogen 380 mg/dL (211-428)
[2021-05-30 10:32] VITALS: BP 112/69; PULSE 81; RESP 10; O2SAT 97
[2021-05-30 10:49] LABS: D Dimer 4296 ng/mL (<230)
[2021-05-30] MEDS: MORPHINE 2 MG/ML INJ IV (12:16)
[2021-05-30] MEDS: KETOROLAC 30 MG/ML VIAL IV ×2 (15:54→21:40)
[2021-05-30] MEDS: ACETAMINOPHEN 325 MG TABLET 650 MG PO (18:51)
[2021-05-30] MEDS: LAMICTAL 200 MG 200 EACH PO (21:38)
[2021-05-30] MEDS: LAMICTAL 25 MG 25 EACH PO (21:39)
[2021-05-31] VITALS (10 sets, daily range): BP systolic 97–112; BP diastolic 52–59; PULSE 77–88; RESP 16–18; TEMP 36.2–36.6
[2021-05-31] MEDS: KETOROLAC 30 MG/ML VIAL IV (05:16)
[2021-05-31 08:04] LABS: Add Manual Diff / Slide Review NO; Basophils Absolute Auto 0 /uL (0-100); Basophils Percent Auto 0.3 % (0-2); Eosinophils Absolute Auto 100 /uL (0-450); Eosinophils Percent Auto 0.6 % (2-4); Lymphocytes Absolute Auto 1500 /uL (1100-4500); Lymphocytes Percent Auto 15.5 % (25-40); Mean Corpuscular HGB Conc 33.8 % (30-36); Mean Corpuscular Hemoglobin 29.2 PG (26-34); Mean Corpuscular Volume 86.4 fL (80-100); Monocytes Absolute Auto 600 /uL (0-900); Monocytes Percent Auto 6.3 % (3-14); Neutrophils Absolute Auto 7300 /uL (1500-7000); Neutrophils Percent Auto 77.3 % (50-75); Platelet Count 192 X10^3/uL (150-400); Red Blood Cell Count 2.29 X10^6/uL (4.0-5.2); Red Cell Distribution Width 13.9 % (11.6-14.8); White Blood Cell Count 9.4 X10^3/uL (4.5-11.0)
[2021-05-31 08:06] LABS: Hematocrit 19.7 % (36-46); Hemoglobin 6.7 g/dL (12.0-16.0)
[2021-05-31] MEDS: ACETAMINOPHEN 325 MG TABLET 650 MG PO ×3 (08:06→22:17)
[2021-05-31] MEDS: DOCUSATE 100 MG CAPSULE 200 MG PO (08:06)
--- NOTE | 2021-05-31 08:21 | P.PNOB_ITS ---
Subjective - OB Subjective Patient comments: no complaints, incisional pain, tolerating diet and flatus present baby status: stillbirth Date Patient Seen: 05/31/21 Time Patient Seen: 08:25 Interval history: Patient denies complaints this morning. She ate breakfast without issues and is passing flatus. Slept last night. Vaginal bleeding is light. She got up out of bed last night without dizziness or lightheadedness but has not been up since. Catheter is still in place. She has pain at the incision and some cramping which is relieved with toradol and morphine. Exam Vital Signs (past 8 hours): Oxygen Delivery Method Room Air Narrative Exam Narrative: Temperature 36.3? blood pressure 107/55 heart rate 83 General: Awake and alert, no acute distress. HEENT: NCAT, EOMI, moist oral mucosa CV: Regular rate and rhythm Lungs: CTAB, no wheezes, rales, or rhonchi Abdomen: Aquacel dressing intact with moderate dried blood within outline on bandage. Soft, nontender; bowel tones active; uterus firm 3 cm below umbilicus. Extremities: Warm, no edema bilaterally, 2+ pedal pulses bilaterally Objective Labs Result Diagrams: 05/31/21 07:43 Labs: Laboratory Results - last 24 hr 05/30/21 05/30/21 05/30/21 03:40 10:03 10:03 WBC 16.0 H D RBC 3.21 L Hgb 9.3 L Hct 27.9 L MCV 87.0 MCH 29.1 MCHC 33.4 RDW 13.9 Plt Count 277 Neut % (Auto) 93.8 H D Lymph % (Auto) 3.0 L D [place] % (Auto) 2.9 L Eos % (Auto) 0.0 L Baso % (Auto) 0.3 Neut # (Auto) 60237 H Lymph # (Auto) 500 L [place] # (Auto) 500 Eos # (Auto) 0 Baso # (Auto) 100 PT 11.5 INR 1.0 Fibrinogen 380 D-Dimer 4296 H Crossmatch See Detail 05/31/21 07:43 WBC 9.4 RBC 2.29 L Hgb 6.7 L* Hct 19.7 L* MCV 86.4 MCH 29.2 MCHC 33.8 RDW 13.9 Plt Count 192 Neut % (Auto) 77.3 H Lymph % (Auto) 15.5 L [place] % (Auto) 6.3 Eos % (Auto) 0.6 L Baso % (Auto) 0.3 Neut # (Auto) 7300 H Lymph # (Auto) 1500 [place] # (Auto) 600 Eos # (Auto) 100 Baso # (Auto) 0 PT INR Fibrinogen D-Dimer Crossmatch Assessment & Plan Assessment and Plan (1) Delivery by section using transverse incision of lower segment of uterus: Problem details: Transverse lie and placenta abruption with demise Status: Acute (2) 30 weeks gestation of : Status: Acute (3) Acute blood loss anemia: Status: Acute (4) Trisomy 18 of fetus in current : Status: Acute Plan day: 1 Comments: 30-year-old status post primary low-transverse section at 30 weeks and 4 days for placental abruption and demise of a trisomy 18 fetus. She lost a considerable amount of blood prior to due to abruption. Blood loss in the was not felt to be excessive, thus significant blood loss due to abruption prior to delivery. This morning hemoglobin is 6.7, down from 11.0 on admission and hematocrit 19.7 down from 32. Vital signs are stable without tachycardia or hypotension however given the degree of blood loss, recommended transfusion of 1 unit packed red blood cells. Risks and benefits reviewed with patient. She consents to blood transfusion. Will repeat an H&H several hours after the transfusion is done. She does not have signs of ongoing losses and vaginal bleeding is light. She otherwise is recovering well postoperatively. Will transition to ibuprofen and oxycodone for pain control today. Urinary catheter to be removed. Encouraged her to go slow getting out of bed and let us know if she experiences lightheadedness or dizziness. She is tolerating a diet and passing flatus. She is grieving appropriately after the loss of her infant and has good support from family. Anticipate discharge home tomorrow as long she continues to do well. Time Spent With Patient Time: Total time spent is greater than 50% in coordination of care (as documented) at patient's floor/unit and/or counseling patient: Time with patient: less than 15 minutes
[2021-05-31] MEDS: IBUPROFEN 600 MG TABLET PO ×2 (13:09→18:53)
[2021-05-31 17:27] LABS: Hematocrit 28.3 % (36-46); Hemoglobin 9.8 g/dL (12.0-16.0)
[2021-05-31] MEDS: LAMICTAL 25 MG 25 EACH PO (22:18)
[2021-05-31] MEDS: OXYCODONE IR 5 MG TABLET PO (22:18)
[2021-05-31] MEDS: LAMICTAL 200 MG 200 EACH PO (22:19)
[2021-06-01] MEDS: IBUPROFEN 600 MG TABLET PO ×2 (02:24→11:53)
[2021-06-01] MEDS: OXYCODONE IR 5 MG TABLET PO ×2 (02:24→10:01)
--- NOTE | 2021-06-01 09:04 | P.DS_ITS ---
Discharge Providers Provider Date of admission: 05/30/21 03:26 Discharge Date: 06/01/21 Primary care physician: Gilda Llamas DO Discharge provider: Gilda Llamas DO Summary Hospital Course Date Patient Seen: 06/01/21 Time Patient Seen: 10:00 Diagnoses: 30 weeks of Placental abruption demise Fetus affected by trisomy 18 S/p section Acute blood loss anemia Hospital Course: Patient is a 30-year-old status post primary low-transverse section at 30 weeks and 4 days for placental abruption and demise of a trisomy 18 fetus. She presented to the hospital with significant bleeding and cramping. Shortly after arrival she had spontaneous rupture of membranes. Infant was transverse and in distress. The patient and her requested comfort care for infant which had been their plan since the diagnosis of trisomy 18. They had previously been counseled extensively by [facility], palliative care and Dr. Llamas. Dr. Moon attempted external cephalic version however was unsuccessful. On US the placenta was near the os and infant persistently transverse. FHT were not seen on US and demise confirmed. Due to persistent transverse lie, primary section was recommended. EML prior to was estimated at 900 ml due to abruption. The patient was taken to the operating room and placed under general anesthesia for the surgery. Primary was uncomplicated without excessive blood loss. Coagulation labs were done due to abruption and reassuring. H/H was 9.3/27.0 immediately after surgery, down from 11.0/32.1 on admission. Postoperatively she did well however H/H post-op day 2 was 6.7/19.7. She was without hypotension or tachycardia or symptoms upon standing however was transfused 1 unit PRBCs given the severity of anemia. Suspect the majority of blood loss occurred from the abruption prior to the . She was started on iron. She progressed well through her hospital recovery. She was tolerating a diet, passing flatus and ambulating. Pain well-controlled with ibuprofen and oxycodone. Vaginal bleeding light to moderate. Her milk was coming in at the time of discharge and she was counseled to wear tight fitting bras, ice packs and cabbage leaves if desired. She and her were grieving appropriately and have good family support. She is scheduled with a counselor in clinic 06/07/21. Family has been helping with arrangements. She was advised to call for fevers, severe pain or bleeding through more than a pad an hour. She is scheduled in clinic for Aquacel dressing removal. Peripartum Data Infant Delivery Method: Section 1: Gender: Female Disposition of : Discharge Diagnosis (1) Delivery by section using transverse incision of lower segment of uterus: Status: Acute Problem Details: Transverse lie and placenta abruption with demise (2) 30 weeks gestation of : Status: Acute (3) Acute blood loss anemia: Status: Acute (4) Trisomy 18 of fetus in current : Status: Acute Status at Discharge Cognitive/behavioral status at discharge: at baseline, oriented Functional status at discharge: independent ambulation Overall status at discharge: patient is progressing back to baseline Time Spent with Patient Time attestation: Total time spent providing and/or coordinating discharge services: Time spent: Greater than 30 minutes Objective Labs Result Diagrams: 05/31/21 17:20 Labs: Laboratory Results - last 24 hr 05/30/21 05/31/21 03:40 17:20 Hgb 9.8 L Hct 28.3 L Blood Type O Positive Antibody Screen Negative Crossmatch See Detail Exam Vital Signs (past 8 hours): Oxygen Delivery Method Room Air Temp 35.2 BP 106/58 P 73 Narrative Exam Narrative: General: Awake and alert, no acute distress. HEENT: NCAT, EOMI, moist oral mucosa CV: Regular rate and rhythm Lungs: CTAB, no wheezes, rales, or rhonchi Abdomen:? Aquacel dressing intact with moderate dried blood within outline on bandage.? Soft, nontender; bowel tones active; uterus firm 3 cm below umbilicus. Extremities: Warm, no edema bilaterally Discharge Plan Discharge Plan Patient Disposition: Home Discharge orders & Medications Prescriptions: New docusate sodium 100 mg Capsule 200 mg PO DAILY Qty: 30 0RF ferrous sulfate 325 mg (65 mg iron) Tablet 325 mg PO DAILY Qty: 30 0RF ibuprofen 600 mg Tablet 600 mg PO Q6H PRN (Reason: Fever/Mild Pain (1-3)) Qty: 30 0RF oxycodone 5 mg Tablet 5 mg PO Q4H PRN (Reason: Pain, Moderate (4-6)) Qty: 20 0RF Continued ondansetron 4 mg tablet,disintegrating 4 mg PO Q8H PRN (Reason: nausea and vomiting) Qty: 30 0RF lorazepam 1 mg tablet 0.5 mg PO BEDTIME PRN (Reason: anxiety) Qty: 15 0RF lamotrigine 200 mg tablet extended release 24hr 200 mg PO DAILY 0RF lamotrigine 25 mg tablet extended release 24hr 25 mg PO DAILY MDD 225mg PRN (Reason: Seizures) 0RF prenat.vits,uzma,dza-phyz-lhfzp Tablet 1 tab PO DAILY 0RF Probiotic 10 billion cell capsule 10,000 mmu cells PO DAILY 0RF Discontinued folic acid 1 mg tablet 1 mg PO DAILY 0RF Follow up/Referrals: Gilda Llamas DO [Primary Care Provider] - 06/06/21 12:30 pm Diet/Activity/Treatments Diet: Diet as Tolerated Skin/Wound/Dressing Care Report to your healthcare provider any signs of infection, such as:: chills, fever, night sweats, increased pain, unusual drainage and unusual redness Visit Report/Discharge Packet Instructions: DI for Stillbirth Visit Report Forms: Patient Portal/API, Stroke Signs & Symptoms Discharge Data Primary Care Provider: Gilda Llamas
[2021-06-01 09:58] VITALS: TEMP 36.5
[2021-06-01] MEDS: FERROUS SULFATE 325 MG TABLET PO (09:58)
[2021-06-01] MEDS: DOCUSATE 100 MG CAPSULE 200 MG PO (09:58)
[2021-06-01] MEDS: ACETAMINOPHEN 325 MG TABLET 650 MG PO (09:58)
[2021-06-01 10:01] VITALS: TEMP 36.5
[2021-06-01 11:41] VITALS: BP 130/72; PULSE 90; RESP 16; TEMP 36.5
[2021-06-01 11:53] VITALS: TEMP 36.5
== END 2021-06-01 13:15 | disposition home or self-care (01) | DRG 786 ==
PROVIDERS: Admitting Provider Specialist; PCP Family Medicine; Referring Provider Specialist; Visit Provider Specialist
PROC: 10D00Z1 Extraction of Products of Conception, Low, Open Approach (ICD-10-PCS; CPT 59514; principal; 2021-05-30 08:00)
DX: O45.93 Premature separation of placenta, unspecified, third trimester (principal); O60.14X0 Preterm labor third trimester with preterm delivery third trimester, not applicable or unspecified; D62 Acute posthemorrhagic anemia; O99.354 Diseases of the nervous system complicating childbirth; O99.02 Anemia complicating childbirth; G40.909 Epilepsy, unspecified, not intractable, without status epilepticus; Z3A.30 30 weeks gestation of pregnancy; Z37.1 Single stillbirth; O75.89 Other specified complications of labor and delivery; O76 Abnormality in fetal heart rate and rhythm complicating labor and delivery; O64.8XX0 Obstructed labor due to other malposition and malpresentation, not applicable or unspecified; Z20.822 Contact with and (suspected) exposure to COVID-19
CPT/HCPCS: 36415; 36430; 59050; 59510; 59514; 76815; 85014; 85018; 85025; 85379; 85384; 85610; 86850; 86900; 86901; 87635; C9803; P9016; G0379; J0131; J0330; J0690; J1100; J1885; J2250; J2270; J2405; J2590; J2704; J3010

== ENCOUNTER → 2021-10-29 07:08 | Outpatient (CLI) | payer OTHER, SELFPAY | PROVIDERS: PCP Family Medicine; Visit Provider Registered Nurse | DX: J02.9 Acute pharyngitis, unspecified (principal) | CPT/HCPCS: 87070 ==

== ENCOUNTER → 2022-08-11 06:45 | Outpatient (CLI) | payer OTHER, SELFPAY ==
--- NOTE | 2022-08-11 06:46 | DI.US.S_ITS ---
PROCEDURE: US OB <= 14 WEEKS FETUS INDICATIONS: DATING OUTSIDE/PRIOR DATING DATA: Last menstrual period (LMP): 06/11/2022 LMP-based estimated date of delivery (ROXANE): 03/18/2023 First dating scan (date and location): 08/11/2022 Estimated date of delivery (ROXANE) from first dating scan: 03/20/2023 TECHNIQUE: Real-time scanning was performed of the fetus and maternal pelvic organs, with image documentation. Endovaginal scanning was also performed to better visualize the fetus and maternal ovaries. COMPARISON: Outside Facility, , US OB DET ANATOMY SECOND/THIRD, 03/09/2021, 9:59. [facility], , OB <= 14 WEEKS FETUS, 12/24/2020, 9:29. FINDINGS: Embryo: Single live intrauterine is identified with crown-rump length measuring 1.9 cm corresponding to 8 weeks 3 days. Heart rate: 169 beats per minute. Maternal organs: Ovaries demonstrate probable left ovarian corpus luteal cyst.. IMPRESSION: Single live intrauterine with ultrasound gestational age today of 8 weeks 3 days. Recommend followup imaging at 20-22 weeks for dates and anatomy. We strive to produce accurate, complete, and clear reports of imaging services. To assist us in improving patient care, this report was composed using standard report templates and voice recognition software. Therefore, it may contain abnormal punctuation, insertions and/or omissions. Occasional wrong-word or sound-alike substitutions may occur. Though we review the report and make efforts to correct it, we do recommend that the report be read carefully in proper context to recognize any text inaccuracies. Dictated by: Ellen Moreno M.D. on 08/11/2022 at 12:56 Approved by: Ellen Moreno M.D. on 08/11/2022 at 12:58
== END ==
PROVIDERS: PCP Family Medicine; Referring Provider Family Medicine; Visit Provider Family Medicine
DX: Z36.87 Encounter for antenatal screening for uncertain dates (principal); Z3A.08 8 weeks gestation of pregnancy
CPT/HCPCS: 76801; 76817

== ENCOUNTER → 2022-10-13 07:05 | Outpatient (CLI) | payer OTHER, SELFPAY | PROVIDERS: PCP Family Medicine; Visit Provider Nurse Practitioner Family | DX: N89.8 Other specified noninflammatory disorders of vagina (principal); N39.0 Urinary tract infection, site not specified | CPT/HCPCS: 87086; 87210 ==

== ENCOUNTER → 2022-12-06 06:53 | Outpatient (CLI) | payer OTHER, SELFPAY ==
[2022-12-06 08:20] LABS: Add Manual Diff / Slide Review NO; Basophils Absolute Auto 0 /uL (0-100); Basophils Percent Auto 0.4 % (0-2); Eosinophils Absolute Auto 300 /uL (0-450); Eosinophils Percent Auto 3.8 % (2-4); Hematocrit 31.4 % (36-46); Hemoglobin 10.5 g/dL (12.0-16.0); Lymphocytes Absolute Auto 1500 /uL (1100-4500); Lymphocytes Percent Auto 21.8 % (25-40); Mean Corpuscular HGB Conc 33.5 % (30-36); Mean Corpuscular Hemoglobin 29.2 PG (26-34); Monocytes Absolute Auto 500 /uL (0-900); Neutrophils Absolute Auto 4400 /uL (1500-7000); Platelet Count 245 X10^3/uL (150-400); Red Blood Cell Count 3.61 X10^6/uL (4.0-5.2); Red Cell Distribution Width 14.1 % (11.6-14.8); White Blood Cell Count 6.7 X10^3/uL (4.5-11.0)
[2022-12-06 14:50] LABS: Appearance Urine UA CLEAR; Bilirubin Urine UA NEGATIVE (NEGATIVE); Color Urine UA YELLOW; Glucose Urine UA NEGATIVE (Negative); Ketones Urine UA NEGATIVE (NEGATIVE); Leukocyte Esterase Urine UA NEGATIVE (NEGATIVE); Nitrite Urine UA NEGATIVE (Negative); Occult Blood Urine UA NEGATIVE (Negative); Protein Urine UA NEGATIVE (Negative); Specific Gravity Urine UA 1.015 (1.000-1.035); Urobilinogen Urine UA 0.2 E.U./dL (0.2)
[2022-12-06 14:52] LABS: pH Urine UA 6.5 (4.5-8.0)
[2022-12-07 06:01] LABS: RPR Screen Non Reactive (Non Reactive)
[2022-12-07 16:18] LABS: Hepatitis B Surface Antigen NEGATIVE s/c (NEGATIVE); Rubella Antibody IgG 29.8 IU/mL (>15)
[2022-12-07 16:28] LABS: HIV 1 & 2 Ab/Ag 4th Gen Combo NEGATIVE (NEGATIVE); Hep C Virus Ab w/Reflex Quant NEGATIVE s/c (NEGATIVE)
[2022-12-07 17:00] LABS: Varicella IgG Antibody 1251 index (Immune >165)
[2022-12-08 09:21] LABS: Lamotrigine Lamictal 4.1 ug/mL (2.0-20.0)
== END ==
PROVIDERS: PCP Family Medicine; Referring Provider Family Medicine; Visit Provider Family Medicine
DX: G40.909 Epilepsy, unspecified, not intractable, without status epilepticus (principal); Z34.80 Encounter for supervision of other normal pregnancy, unspecified trimester; O09.299 Supervision of pregnancy with other poor reproductive or obstetric history, unspecified trimester
CPT/HCPCS: 36415; 80055; 80175; 81003; 86787; 86803; 86850; 86900; 86901; 87086; 87389

== ENCOUNTER → 2023-01-03 07:02 | Outpatient (CLI) | payer OTHER, SELFPAY ==
[2023-01-03 09:07] LABS: Add Manual Diff / Slide Review NO; Basophils Absolute Auto 0 /uL (0-100); Basophils Percent Auto 0.5 % (0-2); Eosinophils Absolute Auto 200 /uL (0-450); Eosinophils Percent Auto 2.9 % (2-4); Hematocrit 31.2 % (36-46); Hemoglobin 10.5 g/dL (12.0-16.0); Lymphocytes Absolute Auto 1300 /uL (1100-4500); Lymphocytes Percent Auto 19.4 % (25-40); Mean Corpuscular HGB Conc 33.7 % (30-36); Mean Corpuscular Hemoglobin 28.8 PG (26-34); Mean Corpuscular Volume 85.5 fL (80-100); Monocytes Absolute Auto 500 /uL (0-900); Monocytes Percent Auto 8.2 % (3-14); Neutrophils Absolute Auto 4500 /uL (1500-7000); Platelet Count 269 X10^3/uL (150-400); Red Blood Cell Count 3.65 X10^6/uL (4.0-5.2); Red Cell Distribution Width 13.9 % (11.6-14.8); White Blood Cell Count 6.5 X10^3/uL (4.5-11.0)
[2023-01-03 09:27] LABS: GTT (PREG) 1 Hour PP 50gm Dose 96 mg/dL (76-139)
[2023-01-08 15:55] LABS: Lamotrigine Lamictal 5.5 ug/mL (2.0-20.0)
== END ==
PROVIDERS: Family Provider Family Medicine; PCP Family Medicine; Referring Provider Family Medicine; Visit Provider Family Medicine
DX: Z34.80 Encounter for supervision of other normal pregnancy, unspecified trimester (principal); G40.909 Epilepsy, unspecified, not intractable, without status epilepticus
CPT/HCPCS: 36415; 80175; 82950; 85025

== ENCOUNTER 2023-01-17 15:51 | Outpatient (CLI) | payer OTHER, SELFPAY ==
--- NOTE | 2023-01-17 16:31 | P.TNLD_ITS ---
Visit Information Visit Information Date of evaluation: 01/17/23 Primary OB Provider: Indigo Underwood Comments/Additional reasons for admission: 32yo at 31w3d here for NST due to epilepsy on Lamictal and hx of placental abruption. NO vaginal bleeding, LOF, contractions. Feeling baby move regularly. [facility] Medical History (Updated 12/22/22 @ 08:54 by Indigo Underwood MD) Migraines PTSD (post-traumatic stress disorder) Depression Acute blood loss anemia Delivery by section using transverse incision of lower segment of uterus (~05/30/21) Trisomy 18 of fetus in current Encounter for removal of intrauterine contraceptive device (IUD) (~06/2020) Sinusitis Epilepsy (~2001) Fibromyalgia (~2007) Chronic back pain (~1996) Surgical History (Updated 08/14/22 @ 08:07 by Mi Youssef RN) Previous section H/O oral surgery (~2004) [place] teeth extracted (~2019) Family History (Updated 08/14/22 @ 08:10 by Mi Youssef RN) Mother Hyperlipidemia Grandfather Myocardial infarction Grandmother History of heart attack Diabetes mellitus Hypertension Grandfather History of heart attack Hypertension Diabetes mellitus Father Hypertension Diabetes mellitus Grandmother No problems noted. Social History marital status: number of children: 0 household members: spouse and family (grandmother lives in MIL apartment) lives independently: Yes caregiver/support person: Yes housing: house pets and animals: Yes (2 fish) education level: college (Associate's degree) occupational status: employed current occupational exposures/hazards: No special calder[place] needs: No travel history: over 6 months ago seatbelt use: always water heater temp set < 120 deg: Yes working smoke detector in home: Yes fire extinguisher in home: Yes carbon monox detector in home: Yes firearms in home: Yes firearms unloaded and locked: Yes do you feel safe at home: Yes Smoking Status: Never smoker second hand exposure: No alcohol intake: former (rarely when not ) substance use type: does not use during the past year weight has: other (currently 14 months , currently back to approx pre- weight) well-balanced diet: daily or most days (tends not to eat enough if she doesn't track her foods) daily servings fruits/ve or more times/day caffeine: Yes (occasionally green tea) Type(s) of exercise: walking, other (hiking), running and normal ROM and activity frequency: daily duration: 30-45 minutes/day Evaluation Evaluation Baseline heart rate: 135 Variability: Moderate (11-25) monitor accelerations: Present Monitor Decelerations: Absent Category of Tracing: Reactive Diagnosis, Plan/Disposition Final Diagnosis (1) History of IUFD: Status: Acute (2) History of placenta abruption: Status: Acute (3) Epilepsy: Status: Chronic Problem details: well controlled on current medication, none since ~2008 Plan/Disposition Plan: 32yo at 31w3d here for NST due to epilepsy on Lamictal and hx of placental abruption. NST reactive. Stable for d/c home. OB Disposition: home
== END 2023-01-17 16:46 | disposition home or self-care (01) ==
LOC: OB 01-22 11:53
PROVIDERS: Family Provider Family Medicine; PCP Family Medicine; Referring Provider Family Medicine; Visit Provider Family Medicine
DX: O99.353 Diseases of the nervous system complicating pregnancy, third trimester (principal); G40.909 Epilepsy, unspecified, not intractable, without status epilepticus; O09.293 Supervision of pregnancy with other poor reproductive or obstetric history, third trimester; Z87.59 Personal history of other complications of pregnancy, childbirth and the puerperium; Z3A.31 31 weeks gestation of pregnancy
CPT/HCPCS: 59025; G0378; G0379

== ENCOUNTER 2023-01-22 15:28 | Outpatient (CLI) | payer OTHER, SELFPAY ==
--- NOTE | 2023-01-22 16:10 | PM.OBTRLD ---
Visit Information Visit Information Date of evaluation: 01/22/23 Primary OB Provider: Indigo Underwood Comments/Additional reasons for admission: 32yo at 32w1d here for NST due to epilepsy on Lamictal and hx of placental abruption. NO vaginal bleeding, LOF, contractions. Feeling baby move regularly. [facility] Medical History (Updated 12/22/22 @ 08:54 by Indigo Underwood MD) Migraines PTSD (post-traumatic stress disorder) Depression Acute blood loss anemia Delivery by section using transverse incision of lower segment of uterus (~05/30/21) Trisomy 18 of fetus in current Encounter for removal of intrauterine contraceptive device (IUD) (~06/2020) Sinusitis Epilepsy (~2001) Fibromyalgia (~2007) Chronic back pain (~1996) Surgical History (Updated 08/14/22 @ 08:07 by Mi Youssef RN) Previous section H/O oral surgery (~2004) [place] teeth extracted (~2019) Family History (Updated 08/14/22 @ 08:10 by Mi Youssef RN) Mother Hyperlipidemia Grandfather Myocardial infarction Grandmother History of heart attack Diabetes mellitus Hypertension Grandfather History of heart attack Hypertension Diabetes mellitus Father Hypertension Diabetes mellitus Grandmother No problems noted. Social History marital status: number of children: 0 household members: spouse and family (grandmother lives in MIL apartment) lives independently: Yes caregiver/support person: Yes housing: house pets and animals: Yes (2 fish) education level: college (Associate's degree) occupational status: employed current occupational exposures/hazards: No special calderon needs: No travel history: over 6 months ago seatbelt use: always water heater temp set < 120 deg: Yes working smoke detector in home: Yes fire extinguisher in home: Yes carbon monox detector in home: Yes firearms in home: Yes firearms unloaded and locked: Yes do you feel safe at home: Yes Smoking Status: Never smoker second hand exposure: No alcohol intake: former (rarely when not ) substance use type: does not use during the past year weight has: other (currently 14 months , currently back to approx pre- weight) well-balanced diet: daily or most days (tends not to eat enough if she doesn't track her foods) daily servings fruits/ve or more times/day caffeine: Yes (occasionally green tea) Type(s) of exercise: walking, other (hiking), running and normal ROM and activity frequency: daily duration: 30-45 minutes/day Evaluation Evaluation Baseline heart rate: 140 Variability: Moderate (11-25) monitor accelerations: Absent (x1 present) Monitor Decelerations: Absent Category of Tracing: Reactive Diagnosis, Plan/Disposition Final Diagnosis (1) History of placenta abruption: Status: Acute (2) Epilepsy: Status: Chronic Problem details: well controlled on current medication, none since ~2008 Plan/Disposition Plan: 32yo at 31w3d here for NST due to epilepsy on Lamictal and hx of placental abruption. NST nonreactive with only 1 accel in 40min. BPP 09/12. Stable for d/c home. OB Disposition: home
--- NOTE | 2023-01-22 16:22 | DI.US.S_ITS ---
PROCEDURE: US OB BIOPHYSICAL PROFILE INDICATIONS: VARIABLE HEARTRATE OUTSIDE/PRIOR DATING DATA: Last menstrual period (LMP): 06/21/2022. LMP-based estimated date of delivery (ROXANE): 03/18/2023. First dating scan (date and location): 08/11/2022. Estimated date of delivery (ROXANE) from first dating scan: 03/20/2023. The calculations are made using the clinical ROXANE of 03/18/2023. TECHNIQUE: Real-time scanning was performed of the fetus for biophysical profile, with image documentation. COMPARISON: None. FINDINGS: General: A single living intrauterine gestation is present. Presentation: Vertex. Placenta: Placental position is anterior , without previa. Amniotic fluid index: 14 cm, normal range is 5-24 cm. Single deepest vertical pocket is 4.4 cm. heart rate: 137 beats per minute. Maternal cervical canal: Not well seen Clinically estimated gestational age: 32 weeks 1 day Biophysical profile: Tone: 2 points. Movement: 2 points. Respiration: 2 points. Largest pocket of fluid: 2 points. IMPRESSION: Single live intrauterine with ultrasound gestational age of 32 weeks 1 day. [facility] 09/12 We strive to produce accurate, complete, and clear reports of imaging services. To assist us in improving patient care, this report was composed using standard report templates and voice recognition software. Therefore, it may contain abnormal punctuation, insertions and/or omissions. Occasional wrong-word or sound-alike substitutions may occur. Though we review the report and make efforts to correct it, we do recommend that the report be read carefully in proper context to recognize any text inaccuracies. Dictated by: Ellen Moreno M.D. on 01/22/2023 at 21:17 Approved by: Ellen Moreno M.D. on 01/22/2023 at 21:19
== END 2023-01-22 17:01 | disposition home or self-care (01) ==
LOC: LABOR 17:48 → OB 01-30 06:49
PROVIDERS: Family Provider Family Medicine; PCP Family Medicine; Referring Provider Family Medicine; Visit Provider Family Medicine
DX: Z87.59 Personal history of other complications of pregnancy, childbirth and the puerperium (principal); G40.909 Epilepsy, unspecified, not intractable, without status epilepticus; Z36.9 Encounter for antenatal screening, unspecified
CPT/HCPCS: 59025; 76819; G0378; G0379

== ENCOUNTER 2023-01-25 15:57 | Outpatient (CLI) | payer OTHER, SELFPAY | END 2023-01-25 16:42 | disposition home or self-care (01) | LOC: OB 01-30 06:51 | PROVIDERS: Family Provider Family Medicine; PCP Family Medicine; Referring Provider Obstetrics & Gynecology; Visit Provider Obstetrics & Gynecology | DX: Z34.83 Encounter for supervision of other normal pregnancy, third trimester (principal); Z3A.38 38 weeks gestation of pregnancy | CPT/HCPCS: 59025; G0378; G0379 ==

== ENCOUNTER 2023-01-30 08:22 | Observation (INO) | payer OTHER, SELFPAY ==
--- NOTE | 2023-01-30 10:24 | DI.US.S_ITS ---
PROCEDURE: US OB BIOPHYSICAL PROFILE INDICATIONS: NON-REACTOVE NON-STRESS TEST OUTSIDE/PRIOR DATING DATA: Last menstrual period (LMP): June 11, 2022. LMP-based estimated date of delivery (ROXANE): March 18, 2023. First dating scan (date and location): August 11, 2022. Estimated date of delivery (ROXANE) from first dating scan: March 20, 2023 TECHNIQUE: Real-time scanning was performed of the fetus for biophysical profile, with image documentation. Color and pulse Doppler interrogation was also performed of the umbilical artery near its insertion into the placenta. Endovaginal scanning: Not performed COMPARISON: [facility], , OB BIOPHYSICAL PROFILE, 01/22/2023, 16:35. FINDINGS: General: A single living intrauterine gestation is present. Presentation: Vertex. Placenta: Placental position is anterior , without previa. Amniotic fluid index: 12.6 cm, normal range is 5-24 cm. Single deepest vertical pocket is 4.6 cm. heart rate: 150 beats per minute. Maternal cervical canal: Not visualized. Estimated gestational age from initial scan: 33 weeks, 2 days. Biophysical profile: Tone: 2 points. Movement: 2 points. Respiration: 2 points. Largest pocket of fluid: 2 points. Miscellaneous: The chest/diaphragm, stomach, and kidneys have a normal appearance. IMPRESSION: 1. Single live intrauterine gestation with an 8/8 biophysical profile. We strive to produce accurate, complete, and clear reports of imaging services. To assist us in improving patient care, this report was composed using standard report templates and voice recognition software. Therefore, it may contain abnormal punctuation, insertions and/or omissions. Occasional wrong-word or sound-alike substitutions may occur. Though we review the report and make efforts to correct it, we do recommend that the report be read carefully in proper context to recognize any text inaccuracies. Dictated by: Belle Ruiz M.D. on 01/30/2023 at 12:04 Approved by: Belle Ruiz M.D. on 01/30/2023 at 12:07
--- NOTE | 2023-01-30 11:00 | P.TNLD_ITS ---
Visit Information Visit Information Date of evaluation: 01/30/23 Primary OB Provider: Indigo Underwood On-call OB Provider: Noemi Kaur Reason for Evaluation: Yes non-stress test Comments/Additional reasons for admission: at 33w2d here for NST due to epilepsy on lamictal and hx of placental abruption. Denies bleeing, LOF, or contractions. Good mvoement. [facility] Medical History (Updated 12/22/22 @ 08:54 by Indigo Underwood MD) Migraines PTSD (post-traumatic stress disorder) Depression Acute blood loss anemia Delivery by section using transverse incision of lower segment of uterus (~05/30/21) Trisomy 18 of fetus in current Encounter for removal of intrauterine contraceptive device (IUD) (~06/2020) Sinusitis Epilepsy (~2001) Fibromyalgia (~2007) Chronic back pain (~1996) Surgical History (Updated 08/14/22 @ 08:07 by Mi Youssef, RN) Previous section H/O oral surgery (~2004) [place] teeth extracted (~2019) Family History (Updated 08/14/22 @ 08:10 by Mi Youssef, RN) Mother Hyperlipidemia Grandfather Myocardial infarction Grandmother History of heart attack Diabetes mellitus Hypertension Grandfather History of heart attack Hypertension Diabetes mellitus Father Hypertension Diabetes mellitus Grandmother No problems noted. Social History marital status: number of children: 0 household members: spouse and family (grandmother lives in MIL apartment) lives independently: Yes caregiver/support person: Yes housing: house pets and animals: Yes (2 fish) education level: college (Associate's degree) occupational status: employed current occupational exposures/hazards: No special calderon needs: No travel history: over 6 months ago seatbelt use: always water heater temp set < 120 deg: Yes working smoke detector in home: Yes fire extinguisher in home: Yes carbon monox detector in home: Yes firearms in home: Yes firearms unloaded and locked: Yes do you feel safe at home: Yes Smoking Status: Never smoker second hand exposure: No alcohol intake: former (rarely when not ) substance use type: does not use during the past year weight has: other (currently 14 months , currently back to approx pre- weight) well-balanced diet: daily or most days (tends not to eat enough if she doesn't track her foods) daily servings fruits/ve or more times/day caffeine: Yes (occasionally green tea) Type(s) of exercise: walking, other (hiking), running and normal ROM and activity frequency: daily duration: 30-45 minutes/day Evaluation Evaluation Baseline heart rate: 145 Variability: Average (6-10) monitor accelerations: Present Monitor Decelerations: Variable Category of Tracing: Non-reactive Diagnosis, Plan/Disposition Plan/Disposition Plan: 32 yo at 32w2d here for NST due to epilepsy on lamictal and hx of placental abruption. NST with variable decelerations. BPP 8/8. Stable for d/c home. OB Disposition: home
== END 2023-01-30 12:05 | disposition home or self-care (01) ==
PROVIDERS: Admitting Provider Family Medicine; Family Provider Family Medicine; PCP Family Medicine; Referring Provider Family Medicine; Visit Provider Family Medicine
DX: O99.353 Diseases of the nervous system complicating pregnancy, third trimester (principal); Z3A.32 32 weeks gestation of pregnancy; Z87.59 Personal history of other complications of pregnancy, childbirth and the puerperium
CPT/HCPCS: 59025; 59050; 76819; G0378; G0379

== ENCOUNTER 2023-02-02 08:19 | Outpatient (CLI) | payer OTHER, SELFPAY | END 2023-02-02 09:00 | disposition home or self-care (01) | LOC: OB 02-06 08:54 | PROVIDERS: Family Provider Family Medicine; PCP Family Medicine; Referring Provider Family Medicine; Visit Provider Family Medicine | DX: Z34.03 Encounter for supervision of normal first pregnancy, third trimester (principal); Z3A.33 33 weeks gestation of pregnancy | CPT/HCPCS: 59025; G0378; G0379 ==

== ENCOUNTER 2023-02-15 15:52 | Outpatient (CLI) | payer OTHER, SELFPAY | END 2023-02-15 16:29 | disposition home or self-care (01) | LOC: OB 02-20 11:23 | PROVIDERS: Family Provider Family Medicine; PCP Family Medicine; Referring Provider Family Medicine; Visit Provider Family Medicine | DX: Z34.83 Encounter for supervision of other normal pregnancy, third trimester (principal); Z3A.35 35 weeks gestation of pregnancy | CPT/HCPCS: 59025; G0378; G0379 ==

== ENCOUNTER → 2023-02-19 10:00 | Outpatient (CLI) | payer OTHER, SELFPAY | PROVIDERS: Family Provider Family Medicine; PCP Family Medicine; Visit Provider Physician Assistant | DX: J02.9 Acute pharyngitis, unspecified (principal) | CPT/HCPCS: 87070 ==

== ENCOUNTER 2023-02-20 16:03 | Outpatient (CLI) | payer OTHER, SELFPAY | END 2023-02-20 16:32 | disposition home or self-care (01) | LOC: OB 02-22 08:02 | PROVIDERS: Family Provider Family Medicine; PCP Family Medicine; Referring Provider Family Medicine; Visit Provider Family Medicine | DX: O26.893 Other specified pregnancy related conditions, third trimester (principal); R51.9 Headache, unspecified; Z3A.36 36 weeks gestation of pregnancy | CPT/HCPCS: 59025; G0378; G0379 ==

== ENCOUNTER 2023-02-22 13:27 | Outpatient (CLI) | payer OTHER, SELFPAY ==
--- NOTE | 2023-02-23 08:35 | P.TNLD_ITS ---
Visit Information Visit Information Date of evaluation: 02/22/23 Primary OB Provider: Indigo Underwood Comments/Additional reasons for admission: 32yo at 36w4d here for NST due to epilepsy on Lamictal and hx of placental abruption. NO vaginal bleeding, LOF, contractions. Feeling baby move regularly. [facility] Medical History Migraines PTSD (post-traumatic stress disorder) Depression Acute blood loss anemia Delivery by section using transverse incision of lower segment of uterus (~05/30/21) Trisomy 18 of fetus in current Encounter for removal of intrauterine contraceptive device (IUD) (~06/2020) Sinusitis Epilepsy (~2001) Fibromyalgia (~2007) Chronic back pain (~1996) Surgical History Previous section H/O oral surgery (~2004) [place] teeth extracted (~2019) Family History Mother Hyperlipidemia Grandfather Myocardial infarction Grandmother History of heart attack Diabetes mellitus Hypertension Grandfather History of heart attack Hypertension Diabetes mellitus Father Hypertension Diabetes mellitus Grandmother No problems noted. Social History marital status: number of children: 0 household members: spouse and family (grandmother lives in MIL apartment) lives independently: Yes caregiver/support person: Yes housing: house pets and animals: Yes (2 fish) education level: college (Associate's degree) occupational status: employed current occupational exposures/hazards: No special calderon needs: No travel history: over 6 months ago seatbelt use: always water heater temp set < 120 deg: Yes working smoke detector in home: Yes fire extinguisher in home: Yes carbon monox detector in home: Yes firearms in home: Yes firearms unloaded and locked: Yes do you feel safe at home: Yes Smoking Status: Never smoker second hand exposure: No alcohol intake: former (rarely when not ) substance use type: does not use during the past year weight has: other (currently 14 months , currently back to approx pre- weight) well-balanced diet: daily or most days (tends not to eat enough if she doesn't track her foods) daily servings fruits/ve or more times/day caffeine: Yes (occasionally green tea) Type(s) of exercise: walking, other (hiking), running and normal ROM and activity frequency: daily duration: 30-45 minutes/day Evaluation Evaluation Baseline heart rate: 140 Variability: Moderate (11-25) monitor accelerations: Present Monitor Decelerations: Absent Category of Tracing: Reactive Diagnosis, Plan/Disposition Final Diagnosis (1) History of IUFD: Status: Acute (2) History of placenta abruption: Status: Acute (3) Epilepsy: Status: Chronic Problem details: well controlled on current medication, none since ~2008 Plan/Disposition Plan: 32yo at 36w4d here for NST due to epilepsy on Lamictal and hx of placental abruption. NST reactive. Continue testing. OB Disposition: home
== END 2023-02-22 14:15 | disposition home or self-care (01) ==
LOC: LABOR 14:04 → OB 02-26 06:44
PROVIDERS: Family Provider Family Medicine; PCP Family Medicine; Referring Provider Family Medicine; Visit Provider Family Medicine
DX: O99.353 Diseases of the nervous system complicating pregnancy, third trimester (principal); Z3A.36 36 weeks gestation of pregnancy; Z87.59 Personal history of other complications of pregnancy, childbirth and the puerperium
CPT/HCPCS: 59025; G0378; G0379

== ENCOUNTER → 2023-02-23 10:59 | Outpatient (CLI) | payer OTHER, SELFPAY ==
[2023-02-24 10:04] LABS: Strep Grp B PCR NEG for Grp B Strep
== END ==
PROVIDERS: Family Provider Family Medicine; PCP Family Medicine; Visit Provider Family Medicine
DX: Z34.80 Encounter for supervision of other normal pregnancy, unspecified trimester (principal)
CPT/HCPCS: 87653

== ENCOUNTER 2023-03-09 05:48 | Inpatient (IN) | payer OTHER, SELFPAY ==
[2023-03-09 06:11] VITALS: BP 124/81
[2023-03-09 06:37] LABS: Add Manual Diff / Slide Review NO; Basophils Absolute Auto 0 /uL (0-100); Basophils Percent Auto 0.6 % (0-2); Eosinophils Absolute Auto 200 /uL (0-450); Eosinophils Percent Auto 2.7 % (2-4); Hemoglobin 10.3 g/dL (12.0-16.0); Lymphocytes Absolute Auto 1900 /uL (1100-4500); Lymphocytes Percent Auto 25.5 % (25-40); Mean Corpuscular HGB Conc 33.2 % (30-36); Mean Corpuscular Hemoglobin 27.5 PG (26-34); Mean Corpuscular Volume 82.8 fL (80-100); Monocytes Absolute Auto 500 /uL (0-900); Monocytes Percent Auto 7.3 % (3-14); Neutrophils Absolute Auto 4700 /uL (1500-7000); Neutrophils Percent Auto 63.9 % (50-75); Platelet Count 297 X10^3/uL (150-400); Red Blood Cell Count 3.75 X10^6/uL (4.0-5.2); Red Cell Distribution Width 16.9 % (11.6-14.8); White Blood Cell Count 7.3 X10^3/uL (4.5-11.0)
--- NOTE | 2023-03-09 07:27 | P.HPOB_ITS ---
OB HPI Date/Time Date of admission: 03/09/23 Date Patient Seen: 03/09/23 History of Present Condition Chief complaint: Repeat ROXANE Calculator 2 Estimated Delivery Date Method Current WG Current Estimate 03/18/23 Manual 38w 5d Final ROXANE - [id number] Other Estimates 03/18/23 LMP (Certain) 38w 5d 03/20/23 Ultrasound #1 38w 3d Estimated Gestational Age (weeks): 38w5d : 2 Para: 0 Narrative: 32yo at 38w5d here for scheduled repeat . Pt denies any vaginal bleeding, contraction, LOF. She is feeling her baby move regularly. The pts was complicated by epilepsy on Lamictal, no active seizures during her . The pts first was complicated by Trisomy 18 with IUFD and placental abruption. Pts was followed by MFM, who recommended delivery 37-39wks. care: good care, initiated at week # (10) and pounds weight gain (35) Dating criteria OB: LMP confirmed by 1st trimester US Ultrasounds: normal 1st trimester US and normal mid trimester US Obstetrical complications: none Medical complications OB: neurological (epilepsy) Indications Operative indications ( section): previous uterine surgery Preadmission Labs Last OB Lab Results: 2 Blood Type O Positive 12/06/22 07:10 Antibody Screen Negative 12/06/22 07:10 Hematocrit 31.0 % (36-46) L 03/09/23 06:25 Hemoglobin 10.3 g/dL (12.0-16.0) L 03/09/23 06:25 Hepatitis B Surface Antigen Negative s/c (NEGATIVE) 12/06/22 07 :10 Hepatitis C Antibody Negative s/c (NEGATIVE) 12/06/22 07:10 Rubella Antibody 29.8 IU/mL (>15) 12/06/22 07:10 Varicella-Zoster IgG Antibody 1251 index (Immune >165) 12/06/22 07:10 Glucose 1 Hour 96 mg/dL (76-139) 01/03/23 08:25 Group B Streptococcus (PCR) Neg for grp b strep 02/23/23 10:59 -: Urine: negative Genetic Screens: Cell-free DNA: Normal External Labs -: Urine: negative Prior (ies) Past Pregnancies Del. Date GA/Weeks Labor Lgth Wt Sex Route Outcome Anesthesia Place Delv Breastfeed Preg Comp Name 05/30/21 30+4 2 lb 0.911 oz Female still [facility] anomaly intrauterine placental abruption labor Naomi Delivery Date: 05/30/21 Last Updated by: Gilda Llamas D.O. Trisomy 18 fetus, followed by [facility], went into labor at 30+4 weeks, placental abruption, demise in utero, primary for transverse life, required blood transfusion due to blood loss from abruption and Evaluation Evaluation Baseline heart rate: 135 Variability: Moderate (11-25) monitor accelerations: Present Monitor Decelerations: Absent Category of Tracing: Reactive [facility] Medical History Migraines PTSD (post-traumatic stress disorder) Depression Acute blood loss anemia Delivery by section using transverse incision of lower segment of uterus (~05/30/21) Trisomy 18 of fetus in current Encounter for removal of intrauterine contraceptive device (IUD) (~06/2020) Sinusitis Epilepsy (~2001) Fibromyalgia (~2007) Chronic back pain (~1996) Surgical History Previous section H/O oral surgery (~2004) [place] teeth extracted (~2019) Family History Mother Hyperlipidemia Grandfather Myocardial infarction Grandmother History of heart attack Diabetes mellitus Hypertension Grandfather History of heart attack Hypertension Diabetes mellitus Father Hypertension Diabetes mellitus Grandmother No problems noted. Social History marital status: number of children: 0 household members: spouse and family (grandmother lives in MIL apartment) lives independently: Yes caregiver/support person: Yes housing: house pets and animals: Yes (2 fish) education level: college (Associate's degree) occupational status: employed current occupational exposures/hazards: No special calderon needs: No travel history: over 6 months ago seatbelt use: always water heater temp set < 120 deg: Yes working smoke detector in home: Yes fire extinguisher in home: Yes carbon monox detector in home: Yes firearms in home: Yes firearms unloaded and locked: Yes do you feel safe at home: Yes Smoking Status: Never smoker second hand exposure: No alcohol intake: former (rarely when not ) substance use type: does not use during the past year weight has: other (currently 14 months , currently back to approx pre- weight) well-balanced diet: daily or most days (tends not to eat enough if she doesn't track her foods) daily servings fruits/ve or more times/day caffeine: Yes (occasionally green tea) Type(s) of exercise: walking, other (hiking), running and normal ROM and activity frequency: daily duration: 30-45 minutes/day Meds Home Medications and Allergies Home Medications Medication Instructions Recorded Confirmed Type prenat.vits,uzma,eif-dcbs-dmfgv 1 tab PO DAILY 01/06/21 03/02/23 History lamotrigine 250 mg tablet,extended 250 mg PO DAILY #90 tabs 08/21/22 03/02/23 Rx release 24 hr folic acid 1 mg tablet 1 mg PO DAILY #90 tabs 11/20/22 03/02/23 Rx lamotrigine 25 mg tablet,extended 25 mg PO DAILY #30 tabs 12/22/22 03/02/23 Rx release 24 hr Allergies Allergy/AdvReac Type Severity Reaction Status Date / Time No Known Drug Allergies Allergy Verified 02/23/23 10:25 OB Exam Resp Effort & Inspection: normal respiratory effort Auscultation: clear to auscultation bilaterally Cardio Rate: regular rate Rhythm: regular rhythm Heart Sounds: S1 normal, S2 normal and no murmurs GI Inspection: non-distended Palpation: Yes soft and No tender Presentation: vertex Objective Labs 03/09/23 06:25 Labs: Laboratory Results - last 24 hr 03/09/23 06:25 WBC 7.3 RBC 3.75 L Hgb 10.3 L Hct 31.0 L MCV 82.8 MCH 27.5 MCHC 33.2 RDW 16.9 H Plt Count 297 Neut % (Auto) 63.9 Lymph % (Auto) 25.5 [place] % (Auto) 7.3 Eos % (Auto) 2.7 Baso % (Auto) 0.6 Neut # (Auto) 4700 Lymph # (Auto) 1900 [place] # (Auto) 500 Eos # (Auto) 200 Baso # (Auto) 0 Assessment and Plan Assessment and Plan Assessment and Plan narrative: 32yo at 38w5d here for scheduled repeat . complicated by epilepsy on Lamictal. Hx of IUFD with Trisomy 18, placental abruption. GBS negative, Rh positive. Pt consented for surgery previously. Reminded of risks including but not limited to bleeding/hemorrhage, infection, injury to other organs such as bowel/bladder, injury to fetus. The pt agrees to blood transfusion if medically necessary. Consent was previously signed, in chart. Pt is agreeable to blood transfusion if medically necessary. Pt will receive 2g Ancef during surgery. Pt requests they be given after the umbilical cord is cut. She is aware of the risks. SCDs to be placed prior to surgery.
[2023-03-09] MEDS: CITRIC ACID/SODIUM CITRATE 15 ML SOLUTION 30 ML PO (07:30)
[2023-03-09] MEDS: CEFAZOLIN 2 GM/100 ML PREMIX 100 ML IV (08:37)
[2023-03-09] MEDS: ACETAMINOPHEN IV 1,000 MG/100 ML VIAL 400 MG IV (08:44)
--- NOTE | 2023-03-09 08:46 | SUR.OPER ---
Pre-procedure heart tones 135. Viable baby girl born at 0833. Placenta delivered at 0836. APGARs 9/9.
[2023-03-09] MEDS: LACTATED RINGERS 1,000 ML 999 ML IV (09:01)
[2023-03-09 09:25] VITALS: BP 128/82; PULSE 69; RESP 16; TEMP 36.2; O2SAT 97
[2023-03-09 09:30] VITALS: BP 110/71; PULSE 77; RESP 14; O2SAT 97
[2023-03-09 09:35] VITALS: BP 106/69; PULSE 62; RESP 14; O2SAT 97
[2023-03-09] MEDS: KETOROLAC 30 MG/ML VIAL IV ×3 (09:40→21:06)
[2023-03-09 09:41] VITALS: BP 99/69; PULSE 62; RESP 13; TEMP 36.3; O2SAT 96
--- NOTE | 2023-03-09 10:20 | P.OP_ITS ---
Operative Date/Time/Diagnoses Date of procedure: 03/10/23 Time of procedure: 08:00 Pre-op diagnosis: 38w5d gestation GBS negative Rh positive Epilepsy Hx of IUFD with placental abruption in setting of Trisomy 18 Keloid scar Post-op diagnosis: same Procedure & Clinicians Procedure: Repeat Excision of keloid Same procedure as scheduled: Yes Indications: Hx of prior Surgeon: Indigo Underwood Click Yes if Unassisted: No Mushroom Laborer: Jaxon Brown Anesthesia Type: Spinal Operative Notes Findings: Normal uterus, ovaries, and tubes Closure Type: primary Specimen(s): cord blood Intraoperative meds administered: Duramorph and Pitocin Applied: Catheter Estimated Blood Loss (mL): 600 Blood products transfused: none Procedure in detail: OPERATIVE COURSE: The patient was taken to the operating room where spinal anesthesia was placed. She was then prepared and draped in the normal sterile fashion in the dorsal supine position with a leftward tilt. Anesthesia was tested and found to be adequate. A Pfannensteil skin incision was then made with the scalpel around the prior keloid scar. The scar was excised with scalpel and bovie. The incision was then carried through to the underlying layer of fascia with the scalpel. The fascia was incised in the midline and the incision extended laterally with the Gray scissors. The superior aspect of the fascial incision was then grasped with Raúl clamps, elevated with the help of the hand frame surgical elastic knitter, and the underlying rectus muscles dissected off bluntly and sharply where needed. Attention was then turned to the inferior aspect of the incision which, in a similar fashion, was grasped, tented up with Raúl clamps, and the rectus muscle dissected off bluntly and sharply with Gray scissors. The rectus muscles were then in the midline, and the peritoneum was identified and entered bluntly. The peritoneal incision was then extended with good visualization of the bladder. Retraction was provided by the hand frame surgical elastic knitter. The bladder blade was then inserted and the vesicouterine peritoneum identified, grasped with pick-ups and entered sharply with the Metzenbaum scissors. The incision was then extended laterally and the bladder flap created digitally. The bladder blade was then reinserted and the lower uterine segment incised in a transverse fashion with the scalpel, with the hand frame surgical elastic knitter providing suction. The uterine incision was then extended superolaterally by pulling superolaterally on both sides. Membranes were ruptured and fluid was clear. The bladder blade was removed the 's head was flexed out of OA position and delivered atraumatically, with fundal pressure by the hand frame surgical elastic knitter. The nose and mouth were suctioned with bulb suction and the cord was clamped and cut. The infant was handed off to the waiting nursing staff. Cord blood was collected for Rh status. The placenta was then delivered with gentle cord traction. The uterus was then cleared of all clots and debris. The uterine incision was repaired with O Vicryl in a running, locked fashion. A second layer of the same suture was used to obtain excellent hemostasis. The gutters were cleared of all clots. Hysterotomy was investigated and found to be hemostatic. The bladder flap was closed with 2-O Chromic. The fascia was reapproximated with O Vicryl in a running fashion. The subcutaneous tissue was reapproximated with 3-O Vicryl. The skin was closed with 4-O Vicryl. The hand frame surgical elastic knitter helped with retraction during closures. SPONGE AND NEEDLE COUNTS: Correct x3. DRESSING: Aquacel ANTICOAGULATION: SCDs applied prior to Surgery Preop antibiotics given (see MAR). The patient was taken to recovery room having tolerated procedure well. Complications: none [place] Baby 1: Gender: Female Presentation: vertex (Transverse lie) Position: Right Occiput Anterior Placental Delivery Description: Spontaneous Cord Vessel Description: 3 Vessels score (1 min): 9 score (5 min): 9 weight: 7 lb 4.475 oz Post-operative Condition: stable Disposition: PACU Aftercare: routine postop
[2023-03-09] MEDS: METOCLOPRAMIDE 10 MG/2 ML INJ IV (11:47)
[2023-03-09] MEDS: diphenhydrAMINE 50 MG/ML VIAL 25 MG IV (11:48)
[2023-03-09] MEDS: ACETAMINOPHEN 325 MG TABLET 650 MG PO ×2 (16:28→21:43)
[2023-03-09 17:03] VITALS: BP 115/73; PULSE 82; RESP 17; TEMP 37.2
[2023-03-09] MEDS: LANOLIN OINT 7 GM 1 APPLIC TOP (21:08)
[2023-03-10] MEDS: KETOROLAC 30 MG/ML VIAL IV (03:37)
[2023-03-10] MEDS: ACETAMINOPHEN 325 MG TABLET 650 MG PO ×3 (03:37→15:20)
[2023-03-10 06:27] LABS: Add Manual Diff / Slide Review NO; Basophils Absolute Auto 100 /uL (0-100); Basophils Percent Auto 0.6 % (0-2); Eosinophils Absolute Auto 100 /uL (0-450); Eosinophils Percent Auto 0.9 % (2-4); Hematocrit 26.6 % (36-46); Lymphocytes Absolute Auto 1700 /uL (1100-4500); Lymphocytes Percent Auto 20.8 % (25-40); Mean Corpuscular HGB Conc 33.8 % (30-36); Mean Corpuscular Hemoglobin 27.9 PG (26-34); Mean Corpuscular Volume 82.6 fL (80-100); Monocytes Absolute Auto 600 /uL (0-900); Monocytes Percent Auto 7.5 % (3-14); Neutrophils Absolute Auto 5800 /uL (1500-7000); Neutrophils Percent Auto 70.2 % (50-75); Platelet Count 232 X10^3/uL (150-400); Red Blood Cell Count 3.22 X10^6/uL (4.0-5.2); Red Cell Distribution Width 16.8 % (11.6-14.8); White Blood Cell Count 8.2 X10^3/uL (4.5-11.0)
[2023-03-10] MEDS: IBUPROFEN 600 MG TABLET PO ×2 (09:23→15:21)
[2023-03-10] MEDS: FERROUS SULFATE 325 MG TABLET PO (09:23)
[2023-03-10] MEDS: DOCUSATE 100 MG CAPSULE PO (09:23)
--- NOTE | 2023-03-10 13:56 | PM.OBDS.1 ---
Discharge Providers Provider Date of admission: 03/09/23 05:48 Discharge Date: 03/10/23 Primary care physician: Indigo Underwood MD Consults: 03/09/23 11:03 Consult to Correctional Probation Officer Routine Comment: Discharge provider: Indigo Underwood MD Summary Hospital Course Date Patient Seen: 03/10/23 Diagnoses: 38w5d gestation GBS negative Rh positive Epilepsy Hx of IUFD with placental abruption in setting of Trisomy 18 Keloid scar Anemia due to acute blood loss Hospital Course: The pt was admitted for scheduled repeat . The surgery was without complications, and she delivered a viable baby girl. , there were no complications. At the time of discharge she was voiding, ambulating, and passing flatus without difficulty. Her lochia was decreasing appropriately. Her pain was well controlled. She was with good latch. She will f/u in 1 week for incision check. She will take an iron supplement at home for anemia. Peripartum Data Delivery Method: Section Procedures: Repeat complications: none 1: Gender: Female Disposition of : home Time Spent with Patient Time attestation: Total time spent providing and/or coordinating discharge services: Objective Labs 03/10/23 06:15 Labs: Laboratory Results - last 24 hr 03/10/23 06:15 WBC 8.2 RBC 3.22 L Hgb 9.0 L Hct 26.6 L MCV 82.6 MCH 27.9 MCHC 33.8 RDW 16.8 H Plt Count 232 Neut % (Auto) 70.2 Lymph % (Auto) 20.8 L [place] % (Auto) 7.5 Eos % (Auto) 0.9 L Baso % (Auto) 0.6 Neut # (Auto) 5800 Lymph # (Auto) 1700 [place] # (Auto) 600 Eos # (Auto) 100 Baso # (Auto) 100 Exam Vital Signs (past 8 hours): Oxygen Delivery Method Room Air Resp Auscultation: clear to auscultation bilaterally Cardio Rate: regular rate Rhythm: regular rhythm Heart Sounds: S1 normal, S2 normal and no murmurs GI Inspection: non-distended and incision (dressing c/d/i) Palpation: soft, No guarding and tender (appropriately tender) Auscultation: normal bowel sounds Other: fundus firm and below the umbilicus Extrem Right upper extremity: no edema Discharge Plan Discharge Plan Patient Disposition: Home Discharge orders & Medications Prescriptions: New acetaminophen 325 mg Tablet 650 mg PO Q6H Qty: 60 0RF docusate sodium 100 mg Capsule 100 mg PO DAILY Qty: 60 0RF ibuprofen 600 mg Tablet 600 mg PO Q6H Qty: 60 0RF oxycodone 5 mg Tablet 5 mg PO Q4H PRN (Reason: Pain, Moderate (4-6)) Qty: 30 0RF Continued lamotrigine 250 mg tablet extended release 24hr 250 mg PO DAILY Qty: 90 3RF Rx Instructions: Name brand only lamotrigine 25 mg tablet extended release 24hr 25 mg PO DAILY Qty: 30 3RF prenat.vits,uzma,qjv-ecay-faikj Tablet 1 tab PO DAILY Discontinued folic acid 1 mg tablet 1 mg PO DAILY Qty: 90 1RF Follow up/Referrals: Indigo Underwood MD [Primary Care Provider] - 1 Week Diet/Activity/Treatments Diet: Diet as Tolerated and Regular Skin/Wound/Dressing Care Report to your healthcare provider any signs of infection, such as:: chills, fever, increased pain, unusual drainage and unusual redness Visit Report/Discharge Packet Instructions: DI for Stand Alone Forms: Patient Portal/API, Stroke Signs & Symptoms Discharge Data Primary Care Provider: Indigo Underwood
[2023-03-10] MEDS: OXYCODONE IR 5 MG TABLET PO (17:54)
== END 2023-03-10 18:55 | disposition home or self-care (01) | DRG 787 ==
PROVIDERS: Admitting Provider Internal Medicine; Family Provider Family Medicine; PCP Family Medicine; Referring Provider Family Medicine; Visit Provider Family Medicine
PROC: 10D00Z1 Extraction of Products of Conception, Low, Open Approach (ICD-10-PCS; CPT 59514; principal; 2023-03-09 07:45)
DX: O34.211 Maternal care for low transverse scar from previous cesarean delivery (principal); D62 Acute posthemorrhagic anemia; O99.354 Diseases of the nervous system complicating childbirth; Z3A.38 38 weeks gestation of pregnancy; Z67.40 Type O blood, Rh positive; Z37.0 Single live birth; G40.909 Epilepsy, unspecified, not intractable, without status epilepticus; O90.81 Anemia of the puerperium
CPT/HCPCS: 36415; 59050; 59510; 59514; 85025; 86850; 86900; 86901; J0136; J0690; J1100; J1200; J1885; J2274; J2405; J2765; J3010

== ENCOUNTER → 2023-04-20 14:11 | Outpatient (CLI) | payer OTHER, SELFPAY | PROVIDERS: Family Provider Family Medicine; PCP Family Medicine; Visit Provider Family Medicine | DX: R39.198 Other difficulties with micturition (principal) | CPT/HCPCS: 87086 ==

== ENCOUNTER 2023-11-29 14:30 | Outpatient (RCR) | payer OTHER, SELFPAY ==
--- NOTE | 2023-10-16 16:00 | PT.OIE ---
Current Diagnoses Other specified disorders of muscle (10/16/23) Past Medical History (Last Updated 04/20/23 @ 12:07 by Indigo Underwood MD) Acute blood loss anemia Chronic back pain (~1996) Delivery by section using transverse incision of lower segment of uterus (~05/30/21) Depression Epilepsy (~2001) Fibromyalgia (~2007) History of IUFD History of placenta abruption Migraines PTSD (post-traumatic stress disorder) Trisomy 18 of fetus in current Past Surgical History (Last Reviewed 02/19/23 @ 10:08 by Cynthia Rockwell PA-C) H/O oral surgery (~2004) Previous section [place] teeth extracted (~2019) Visit Care Team Role Provider Type Indigo Underwood MD Attending Provider Physician Family Provider Primary Care Provider Referring Provider Specialty: Family Practice Address: [address] [place] [address], [facility] Email: [email or web address] Physical Therapy Initial Evaluation PT-OP-A Visit Information Start: 10/16/23 13:47 Freq: Status: Active Protocol: Document 10/16/23 13:45 [facility] (Rec: 10/16/23 14:26 [facility] [id number]) Out-Patient Physical Therapy Visit Information Visit Information Visit Type Initial Evaluation Visit Start Time 13:45 Visit Stop Time 14:30 Visit Number 1 PT-OP-B Current Condition Start: 10/16/23 13:47 Freq: Status: Active Protocol: Document 10/16/23 13:45 [facility] (Rec: 10/18/23 15:28 [facility] [id number]) Current Condition History of Current Condition Onset Date November 2022 Current Complaints pelvic pain History of Current Condition Yessica began experiencing c/o pelvic pain with her in November 2022. She was in her second trimester with pain began. She delivered via c- section on 03/09/23. Yessica continues to present with dyspareunia since then but she does feel that maybe it is slowly getting a little better . 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 With pelvic floor evaluation today Yessica presents with muscle guarding and tension from 4-8 on the pelvic clock. She presents with left greater than right sided guarding. Yessica has difficulty relaxing her pelvic floor following a contraction . She was given a size XS dilator today and shown how to do gentle self massage work from 4-8 on the pelvic clock. She was also started with gentle pelvic floor stretching . Yessica is a good candidate for pelvic PT working towards full pelvic floor relaxation at rest. Treatment Goals Patient/Caregiver Goals Treatment goals include reducing pain so that pt is able to be intimate with her without pain PT-OP-C Subjective Start: 10/16/23 13:47 Freq: Status: Active Protocol: Document 10/16/23 13:45 [facility] (Rec: 10/16/23 14:26 [facility] [id number]) OP-PT Subjective Patient Comments Patient Comments 7 months post and pelvic pain was worse following delivery. She did have a csection. For the first couple of months she could not feel the sensation of needing to void. PT-OP-F Manual Assessment Start: 10/16/23 13:47 Freq: Status: Active Protocol: Document 10/16/23 13:45 [facility] (Rec: 10/18/23 15:33 [facility] [id number]) Manual Assessments Soft Tissue Assessment Soft Tissue Mobility Assessment tightness in the lumbar paraspinals R>L PT-OP-I Pelvic Floor Start: 10/16/23 13:47 Freq: Status: Active Protocol: Document 10/16/23 13:45 [facility] (Rec: 10/18/23 15:32 [facility] [id number]) Pelvic Floor Assessment Urine Pelvic Floor Surgery No Pelvic Clock Pelvic Clock 12-3 Tightness Pelvic Clock 3-6 Guarding,Hypertonic Pelvic Clock 6-9 Guarding Pelvic Clock Other guarding on the pelvic clock from 4-6 and from 6-8 worse ont he left side the rectum is full with stool with evaluation today and does press into the vaginal wall We did talk about how a full bowel can place pressure into the vaginal wall Comments Pelvic Floor Comments pt voids per her report only 2 times per day, she has bowel movements only ever 4-6 days. She reports this is very normal for her. She was given a bladder diary to track her voids throughout the day as well as tracking her bowel movements. PT-OP-Q Treatments Start: 10/16/23 13:47 Freq: Status: Active Protocol: Document 10/16/23 13:45 [facility] (Rec: 10/16/23 17:14 [facility] [id number]) Therapeutic Exercises Supine Exercises modified squat stretch Reps/Minutes hold 1-2 min happy baby Reps/Minutes hold 1-2 min Self-Care/Home Management Treatment Education Patient Education Pain Management Other Education Yessica was given a XS and sm dilator for stretching and self release of the levator ani, she was shown happy baby and modified squat stretch for home PT-OP-T Assessment and Plan Start: 10/16/23 13:47 Freq: Status: Active Protocol: Document 10/16/23 13:45 [facility] (Rec: 10/16/23 14:26 [facility] [id number]) Physical Therapy Assessment Goals 3 Impairment weakness of the transverse abdominal muscles and pelvic floor with pelvic floor muscle guarding from 4-8 on the pelvic clock left greater than right and guarding of the adductor attachments to the pubic ramus along with c/o dysparunia [facility] Goal (LTG) Yessica is able to fully relax the adductors and pelvic floor at baseline to 0 uv on EMG biofeedback 2 Impairment Dyspareunia that began during [facility] Goal (LTG) Yessica is able to reduce pelvic pain and is no longer experiencing dyspareunia LTG Duration 12 weeks 1 Impairment Decreased strength and endurance of the pelvic floor Short Term Goal (STG) Yessica is able to sustain a pelvic floor contraction in supine x 10 seconds STG Duration 6 weeks [facility] Goal (LTG) Yessica is able to sustain a pelvic floor contraction in standing x 5 seconds LTG Duration 12 weeks Assessment Summary Assessment Yessica is a 33 year female who presents with dysparunia. Her pelvic pain began with in November 2022 and has continued post . Yessica has a history of a trisomy 18 still born with c- section delivery in 2021. This Post traumatic trauma most likely plays a factor with her pelvic pain symptoms. She has pain only with intercourse and denies pelvic pain at other times. With evaulation Yessica presents with guarding and spasm of the pelvic clock from 8-4 worse on the left side. She also has chronic slow motility as she reports only having a bowel movement nina 6 days and this is very normal for her and has she has been her whole life. There is a full rectum with evaluation and it does extend into the vaginal wall. We discussed ideas to improve her bowel movements today as I explained how her full bowels decrease space in the vaginal outlet. Yessica was given a xs dilator today with instructions to begin stretching at the introitus as well as instruction for gentle self massage of the pelvic floor from 8-4 oclock. She is a good candidate for pelvic floor PT working on down training of the pelvic floor. Physical Therapy Plan Frequency and Duration Frequency of Treatment 1x/Week Duration of treatment (weeks) 12 Plan of Care Start Date 10/16/23 Plan of Care End Date 01/08/24 Therapeutic Interventions Therapeutic Interventions Home Exercise Program,Manual Therapy,Patient/Caregiver Education,Self-Care/Home Management,Soft Tissue Mobilization,Therapeutic Exercises Next Visit Focus/Plan Next Note Type Treatment Note Next Visit Plan pelvic stretches for pain, begin EMG biofeedback for relaxed awareness of the pelvic floor
--- NOTE | 2023-10-16 16:00 | PT.OPPOC ---
Physical, Occupational & Speech Therapy At [facility] Current Diagnoses Other specified disorders of muscle (10/16/23) Visit Care Team Role Provider Type Indigo Underwood MD Attending Provider Physician Family Provider Primary Care Provider Referring Provider Specialty: Family Practice Address: [address] [place] [address], [id number] Email: [email or web address] Plan Of Care PT-OP-B Current Condition Start: 10/16/23 13:47 Freq: Status: Active Protocol: Document 10/16/23 13:45 [facility] (Rec: 10/18/23 15:28 [facility] [id number]) Current Condition History of Current Condition Onset Date November 2022 Current Complaints pelvic pain History of Current Condition Yessica began experiencing c/o pelvic pain with her in November 2022. She was in her second trimester with pain began. She delivered via c- section on 03/09/23. Yessica continues to present with dyspareunia since then but she does feel that maybe it is slowly getting a little better . Yessica does have a history of a C section delivery 05/30/21 with a trisomy 18 and still and this most certainly may have affected pelvic floor muscle tension and guarding. With pelvic floor evaluation today Yessica presents with muscle guarding and tension from 4-8 on the pelvic clock. She presents with left greater than right sided guarding. Yessica has difficulty relaxing her pelvic floor following a contraction . She was given a size XS dilator today and shown how to do gentle self massage work from 4-8 on the pelvic clock. She was also started with gentle pelvic floor stretching . Yessica is a good candidate for pelvic PT working towards full pelvic floor relaxation at rest. Treatment Goals Patient/Caregiver Goals Treatment goals include reducing pain so that pt is able to be intimate with her without pain PT-OP-T Assessment and Plan Start: 10/16/23 13:47 Freq: Status: Active Protocol: Document 10/16/23 13:45 [facility] (Rec: 10/16/23 14:26 [facility] [id number]) Physical Therapy Assessment Goals 3 Impairment weakness of the transverse abdominal muscles and pelvic floor with pelvic floor muscle guarding from 4-8 on the pelvic clock left greater than right and guarding of the adductor attachments to the pubic ramus along with c/o dyspareunia [facility] Goal (LTG) Yessica is able to fully relax the adductors and pelvic floor at baseline to 0 uv on EMG biofeedback 2 Impairment Dyspareunia that began during [employer] Goal (LTG) Yessica is able to reduce pelvic pain and is no longer experiencing dyspareunia LTG Duration 12 weeks 1 Impairment Decreased strength and endurance of the pelvic floor Short Term Goal (STG) Yessica is able to sustain a pelvic floor contraction in supine x 10 seconds STG Duration 6 weeks [facility] Goal (LTG) Yessica is able to sustain a pelvic floor contraction in standing x 5 seconds LTG Duration 12 weeks Assessment Summary Assessment Yessica is a 33 year female who presents with dyspareunia. Her pelvic pain began with in November 2022 and has continued post . Yessica has a history of a trisomy 18 still born with c- section delivery in 2021. This Post traumatic trauma most likely plays a factor with her pelvic pain symptoms. She has pain only with intercourse and denies pelvic pain at other times. With evaluation Yessica presents with guarding and spasm of the pelvic clock from 8-4 worse on the left side. She also has chronic slow motility as she reports only having a bowel movement every 6 days and this is very normal for her and has she has been her whole life. There is a full rectum with evaluation and it does extend into the vaginal wall. We discussed ideas to improve her bowel movements today as I explained how her full bowels decrease space in the vaginal outlet. Yessica was given a xs dilator today with instructions to begin stretching at the introitus as well as instruction for gentle self massage of the pelvic floor from 8-4 o'clock. She is a good candidate for pelvic floor PT working on down training of the pelvic floor. Physical Therapy Plan Frequency and Duration Frequency of Treatment 1x/Week Duration of treatment (weeks) 12 Plan of Care Start Date 10/16/23 Plan of Care End Date 01/08/24 Therapeutic Interventions Therapeutic Interventions Home Exercise Program,Manual Therapy,Patient/Caregiver Education,Self-Care/Home Management,Soft Tissue Mobilization,Therapeutic Exercises Next Visit Focus/Plan Next Note Type Treatment Note Next Visit Plan pelvic stretches for pain, begin EMG biofeedback for relaxed awareness of the pelvic floor Plan of Care Dates Plan of Care Start Date 10/16/23 Plan of Care End Date 01/08/24 Electronically Signed by: Rose Mary Gentile, PT 10/23/23 0032 If you are in agreement with this Plan of Care, please return a signed and dated copy. I have reviewed this Plan of Care and certify that the skilled therapy services above are required to meet the patient?s needs. Physician Signature Date Printed Name and Credentials Clinical Instructor Signature Printed Name and Credentials
--- NOTE | 2023-10-24 12:51 | PT.OTN ---
Current Diagnoses Other specified disorders of muscle (10/24/23) Physical Therapy Treatment Note PT-OP-A Visit Information Start: 10/16/23 13:47 Freq: Status: Active Protocol: Document 10/24/23 12:44 [facility] (Rec: 10/24/23 12:48 [facility] [id number]) Out-Patient Physical Therapy Visit Information Visit Information Visit Type Treatment Note Visit Start Time 08:15 Visit Stop Time 09:00 Visit Number 2 PT-OP-B Current Condition Start: 10/16/23 13:47 Freq: Status: Active Protocol: Document 10/16/23 13:45 [facility] (Rec: 10/18/23 15:28 [facility] [id number]) Current Condition History of Current Condition Onset Date November 2022 Current Complaints pelvic pain History of Current Condition Yessica began experiencing c/o pelvic pain with her in November 2022. She was in her second trimester with pain began. She delivered via c- section on 03/09/23. Yessica continues to present with dyspareunia since then but she does feel that maybe it is slowly getting a little better . 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 With pelvic floor evaluation today Yessica presents with muscle guarding and tension from 4-8 on the pelvic clock. She presents with left greater than right sided guarding. Yessica has difficulty relaxing her pelvic floor following a contraction . She was given a size XS dilator today and shown how to do gentle self massage work from 4-8 on the pelvic clock. She was also started with gentle pelvic floor stretching . Yessica is a good candidate for pelvic PT working towards full pelvic floor relaxation at rest. Treatment Goals Patient/Caregiver Goals Treatment goals include reducing pain so that pt is able to be intimate with her without pain PT-OP-C Subjective Start: 10/16/23 13:47 Freq: Status: Active Protocol: Document 10/24/23 12:44 [facility] (Rec: 10/24/23 12:48 [facility] [id number]) OP-PT Subjective Patient Comments Patient Comments Edin reports she has been able to use the XS dilator and is doing self massage from 4- 8 on the pelvic clock. She reports she is more tight and tender on the left. The size small dilator felt like too much of a stretch PT-OP-F Manual Assessment Start: 10/16/23 13:47 Freq: Status: Active Protocol: Document 10/16/23 13:45 [facility] (Rec: 10/18/23 15:33 [facility] [id number]) Manual Assessments Soft Tissue Assessment Soft Tissue Mobility Assessment tightness in the lumbar paraspinals R>L PT-OP-I Pelvic Floor Start: 10/16/23 13:47 Freq: Status: Active Protocol: Document 10/16/23 13:45 [facility] (Rec: 10/18/23 15:32 [facility] [id number]) Pelvic Floor Assessment Urine Pelvic Floor Surgery No Pelvic Clock Pelvic Clock 12-3 Tightness Pelvic Clock 3-6 Guarding,Hypertonic Pelvic Clock 6-9 Guarding Pelvic Clock Other guarding on the pelvic clock from 4-6 and from 6-8 worse ont he left side the rectum is full with stool with evaluation today and does press into the vaginal wall We did talk about how a full bowel can place pressure into the vaginal wall Comments Pelvic Floor Comments pt voids per her report only 2 times per day, she has bowel movements only ever 4-6 days. She reports this is very normal for her. She was given a bladder diary to track her voids throughout the day as well as tracking her bowel movements. PT-OP-Q Treatments Start: 10/16/23 13:47 Freq: Status: Active Protocol: Document 10/24/23 08:58 [facility] (Rec: 10/24/23 09:05 [facility] [id number]) Therapeutic Exercises Supine Exercises right side hip flexor stretch in modified tiffany test Reps/Minutes hold x 1 min hamstring stretch with strap Reps/Minutes hold 1-2 min, gave option of pumping ankle pelvic floor 5 sec hold with ball squeeze Supine Exercise Name 4.4 initially dropped to 2.6 Reps/Minutes hold 5 sec and relax 10 seconds Comments used ball to help with decreasing resting tone and it drooped from 4.4 to2. piriformis stretch Reps/Minutes hold 1-2 min Comments tighter on the right side pelvic floor holds Comments 11 average and max of 17 modified squat stretch Reps/Minutes hold 1-2 min happy baby Reps/Minutes hold 1-2 min Other Exercises dynamic adductor stretch Reps/Minutes x 5 reps each side Comments Yessica could feel right sided adductor tightness nixon pose Reps/Minutes hold 1-2 min cat cow Reps/Minutes x 10 reps PT-OP-T Assessment and Plan Start: 10/16/23 13:47 Freq: Status: Active Protocol: Document 10/24/23 12:44 [facility] (Rec: 10/24/23 12:48 [facility] [id number]) Physical Therapy Assessment Goals 3 Impairment weakness of the transverse abdominal muscles and pelvic floor with pelvic floor muscle guarding from 4-8 on the pelvic clock left greater than right and guarding of the adductor attachments to the pubic ramus along with c/o dysparunia [facility] Goal (LTG) Yessica is able to fully relax the adductors and pelvic floor at baseline to 0 uv on EMG biofeedback 2 Impairment Dyspareunia that began during [facility] Goal (LTG) Yessica is able to reduce pelvic pain and is no longer experiencing dyspareunia LTG Duration 12 weeks 1 Impairment Decreased strength and endurance of the pelvic floor Short Term Goal (STG) Yessica is able to sustain a pelvic floor contraction in supine x 10 seconds STG Duration 6 weeks [facility] Goal (LTG) Yessica is able to sustain a pelvic floor contraction in standing x 5 seconds LTG Duration 12 weeks Assessment Summary Assessment EMG biofeedback was initiated today and Yessica tolerate this well. She was able to use the vaginal sensor without pain after we worked on opening up the hips. Resting tone was elevated at 4.4 uv but after contract relax using the ball she was able to relax to 2.6 uv. I gave her 5 second holds with ball squeeze for home with 10 sec rest Physical Therapy Plan Frequency and Duration Frequency of Treatment 1x/Week Duration of treatment (weeks) 12 Plan of Care Start Date 10/16/23 Plan of Care End Date 01/08/24 Therapeutic Interventions Therapeutic Interventions Home Exercise Program,Manual Therapy,Patient/Caregiver Education,Self-Care/Home Management,Soft Tissue Mobilization,Therapeutic Exercises
--- NOTE | 2023-10-31 13:13 | PT.OTN ---
Current Diagnoses Other specified disorders of muscle (10/31/23) Physical Therapy Treatment Note PT-OP-A Visit Information Start: 10/16/23 13:47 Freq: Status: Active Protocol: Document 10/31/23 08:14 [facility] (Rec: 10/31/23 09:03 [facility] [id number]) Out-Patient Physical Therapy Visit Information Visit Information Visit Type Treatment Note Visit Start Time 08:15 Visit Stop Time 09:00 Visit Number 3 PT-OP-B Current Condition Start: 10/16/23 13:47 Freq: Status: Active Protocol: Document 10/16/23 13:45 [facility] (Rec: 10/18/23 15:28 [facility] [id number]) Current Condition History of Current Condition Onset Date November 2022 Current Complaints pelvic pain History of Current Condition Yessica began experiencing c/o pelvic pain with her in November 2022. She was in her second trimester with pain began. She delivered via c- section on 03/09/23. Yessica continues to present with dyspareunia since then but she does feel that maybe it is slowly getting a little better . 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 With pelvic floor evaluation today Yessica presents with muscle guarding and tension from 4-8 on the pelvic clock. She presents with left greater than right sided guarding. Yessica has difficulty relaxing her pelvic floor following a contraction . She was given a size XS dilator today and shown how to do gentle self massage work from 4-8 on the pelvic clock. She was also started with gentle pelvic floor stretching . Yessica is a good candidate for pelvic PT working towards full pelvic floor relaxation at rest. Treatment Goals Patient/Caregiver Goals Treatment goals include reducing pain so that pt is able to be intimate with her without pain PT-OP-C Subjective Start: 10/16/23 13:47 Freq: Status: Active Protocol: Document 10/31/23 08:14 [facility] (Rec: 10/31/23 09:03 [facility] [id number]) OP-PT Subjective Patient Comments Patient Comments she can feel the hip flexor on the left quite a bit she is using the dilator and feels still tighter on the left but she notes that some days it feels better than others Yessica notes she is really feeling her soreness in her low back and sacral area with taking care of her daughter PT-OP-F Manual Assessment Start: 10/16/23 13:47 Freq: Status: Active Protocol: Document 10/16/23 13:45 [facility] (Rec: 10/18/23 15:33 [facility] [id number]) Manual Assessments Soft Tissue Assessment Soft Tissue Mobility Assessment tightness in the lumbar paraspinals R>L PT-OP-I Pelvic Floor Start: 10/16/23 13:47 Freq: Status: Active Protocol: Document 10/16/23 13:45 [facility] (Rec: 10/18/23 15:32 [facility] [id number]) Pelvic Floor Assessment Urine Pelvic Floor Surgery No Pelvic Clock Pelvic Clock 12-3 Tightness Pelvic Clock 3-6 Guarding,Hypertonic Pelvic Clock 6-9 Guarding Pelvic Clock Other guarding on the pelvic clock from 4-6 and from 6-8 worse ont he left side the rectum is full with stool with evaluation today and does press into the vaginal wall We did talk about how a full bowel can place pressure into the vaginal wall Comments Pelvic Floor Comments pt voids per her report only 2 times per day, she has bowel movements only ever 4-6 days. She reports this is very normal for her. She was given a bladder diary to track her voids throughout the day as well as tracking her bowel movements. PT-OP-Q Treatments Start: 10/16/23 13:47 Freq: Status: Active Protocol: Document 10/31/23 08:14 [facility] (Rec: 10/31/23 09:03 [facility] [id number]) Therapeutic Exercises Supine Exercises pelvic floor 5 sec hold with ball squeeze Reps/Minutes x 5 reps piriformis stretch Supine Exercise Name started out at 2 but went ot 5 uv resting tone Reps/Minutes hold 1-2 min Comments tighter on the right side pelvic floor holds Reps/Minutes 10 sec on 10 sec off Comments 9.0 max of 16.9 Manual Therapy Treatment Soft Tissue Mobilization release of the musculature along the sacram borders and lumbar parapsinals Mobilization Type Myofascial Release Body Position Prone Manual Techniques MET for sacral counternutation Type MET Body Location sacrum Body Position Prone Reps/Duration x 6 reps Comments Yessica notes relief following manual therapy techniques PT-OP-T Assessment and Plan Start: 10/16/23 13:47 Freq: Status: Active Protocol: Document 10/31/23 08:14 [facility] (Rec: 10/31/23 09:03 [facility] [id number]) Physical Therapy Assessment Assessment Summary Assessment Time was spent today releasing the gluteas and piriformis and improving sacral mobility into counter nutation. Yessica presents with a increased in lumbar lordosis with sacrum nutation that increases compression to the low back. She tolerated manual therapy well and did feel improved mobility following. She is still guarded with the pelvic floor but started at a 2.5 today instead of a 4. She relaxes better with contract relax with adductor assist. I encouraged her to continue with dilator work for home Physical Therapy Plan Frequency and Duration Frequency of Treatment 1x/Week Duration of treatment (weeks) 12 Plan of Care Start Date 10/16/23 Plan of Care End Date 01/08/24 Therapeutic Interventions Therapeutic Interventions Home Exercise Program,Manual Therapy,Patient/Caregiver Education,Self-Care/Home Management,Soft Tissue Mobilization,Therapeutic Exercises Next Visit Focus/Plan Next Note Type Treatment Note Next Visit Plan reassess how Yessica is doing with her low back and sacrum, work on adductor release next visit
--- NOTE | 2023-11-15 16:26 | PT.OTN ---
Current Diagnoses Other specified disorders of muscle (11/15/23) Physical Therapy Treatment Note PT-OP-A Visit Information Start: 10/16/23 13:47 Freq: Status: Active Protocol: Document 11/15/23 14:32 [facility] (Rec: 11/15/23 15:21 [facility] [id number]) Out-Patient Physical Therapy Visit Information Visit Information Visit Type Treatment Note Visit Start Time 14:32 Visit Stop Time 15:15 Visit Number 4 PT-OP-B Current Condition Start: 10/16/23 13:47 Freq: Status: Active Protocol: Document 10/16/23 13:45 [facility] (Rec: 10/18/23 15:28 [facility] [id number]) Current Condition History of Current Condition Onset Date November 2022 Current Complaints pelvic pain History of Current Condition Rodger began experiencing c/o pelvic pain with her in November 2022. She was in her second trimester with pain began. She delivered via c- section on 03/09/23. Rodger continues to present with dyspareunia since then but she does feel that maybe it is slowly getting a little better . 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 With pelvic floor evaluation today Rodger presents with muscle guarding and tension from 4-8 on the pelvic clock. She presents with left greater than right sided guarding. Rodger has difficulty relaxing her pelvic floor following a contraction . She was given a size XS dilator today and shown how to do gentle self massage work from 4-8 on the pelvic clock. She was also started with gentle pelvic floor stretching . Rodger is a good candidate for pelvic PT working towards full pelvic floor relaxation at rest. Treatment Goals Patient/Caregiver Goals Treatment goals include reducing pain so that pt is able to be intimate with her without pain PT-OP-C Subjective Start: 10/16/23 13:47 Freq: Status: Active Protocol: Document 11/15/23 14:32 [facility] (Rec: 11/15/23 15:21 [facility] [id number]) OP-PT Subjective Patient Comments Patient Comments has been stretching a lot and sacrum is feeling better and is able to do the small dilator now. She is also feeling that she can tell she is able to relax her pelvic floor muscles better now with intercourse as well. Patient Reported Progress Improving PT-OP-F Manual Assessment Start: 10/16/23 13:47 Freq: Status: Active Protocol: Document 10/16/23 13:45 [facility] (Rec: 10/18/23 15:33 [facility] [id number]) Manual Assessments Soft Tissue Assessment Soft Tissue Mobility Assessment tightness in the lumbar paraspinals R>L PT-OP-I Pelvic Floor Start: 10/16/23 13:47 Freq: Status: Active Protocol: Document 10/16/23 13:45 [facility] (Rec: 10/18/23 15:32 [facility] [id number]) Pelvic Floor Assessment Urine Pelvic Floor Surgery No Pelvic Clock Pelvic Clock 12-3 Tightness Pelvic Clock 3-6 Guarding,Hypertonic Pelvic Clock 6-9 Guarding Pelvic Clock Other guarding on the pelvic clock from 4-6 and from 6-8 worse ont he left side the rectum is full with stool with evaluation today and does press into the vaginal wall We did talk about how a full bowel can place pressure into the vaginal wall Comments Pelvic Floor Comments pt voids per her report only 2 times per day, she has bowel movements only ever 4-6 days. She reports this is very normal for her. She was given a bladder diary to track her voids throughout the day as well as tracking her bowel movements. PT-OP-Q Treatments Start: 10/16/23 13:47 Freq: Status: Active Protocol: Document 11/15/23 14:32 [facility] (Rec: 11/15/23 15:21 [facility] [id number]) Therapeutic Exercises Supine Exercises hamstring stretch with strap Comments manual hamstring stretch today and Rodger is doing much better with HS flex piriformis stretch Supine Exercise Name started out at 2 but went ot 5 uv resting tone Reps/Minutes hold 1-2 min Comments tighter on the right side pelvic floor holds Reps/Minutes 10 sec on 10 sec off Manual Therapy Treatment Soft Tissue Mobilization adductor release B Mobilization Type Myofascial Release Intensity/Depth Moderate Body Position Supine Comments right greater than left sided adductor tightness but this is also improving as well as rodger was not as tight today release of the musculature along the sacram borders and lumbar parapsinals Mobilization Type Myofascial Release Body Position Prone Self-Care/Home Management Treatment Education Patient Education Pain Management Other Education rodger was given a size medium dilator to work up to for home PT-OP-T Assessment and Plan Start: 10/16/23 13:47 Freq: Status: Active Protocol: Document 11/15/23 16:24 [facility] (Rec: 11/15/23 16:26 [facility] [id number]) Physical Therapy Assessment Goals 3 Impairment weakness of the transverse abdominal muscles and pelvic floor with pelvic floor muscle guarding from 4-8 on the pelvic clock left greater than right and guarding of the adductor attachments to the pubic ramus along with c/o dysparunia [employer] Goal (LTG) Rodger is able to fully relax the adductors and pelvic floor at baseline to 0 uv on EMG biofeedback 2 Impairment Dyspareunia that began during [employer] Goal (LTG) Rodger is able to reduce pelvic pain and is no longer experiencing dyspareunia LTG Duration 12 weeks 1 Impairment Decreased strength and endurance of the pelvic floor Short Term Goal (STG) Rodger is able to sustain a pelvic floor contraction in supine x 10 seconds STG Duration 6 weeks Longterm Goal (LTG) Rodger is able to sustain a pelvic floor contraction in standing x 5 seconds LTG Duration 12 weeks Assessment Summary Assessment Rodger reports she is feeling a improvement with ability to relax her pelvic floor and symptoms are improving. Physical Therapy Plan Frequency and Duration Frequency of Treatment 1x/Week Duration of treatment (weeks) 12 Plan of Care Start Date 10/16/23 Plan of Care End Date 01/08/24 Therapeutic Interventions Therapeutic Interventions Home Exercise Program,Manual Therapy,Patient/Caregiver Education,Self-Care/Home Management,Soft Tissue Mobilization,Therapeutic Exercises Next Visit Focus/Plan Next Note Type Treatment Note Next Visit Plan reassess how Rodger is doing with her low back and sacrum, continue to work on adductor release, iliopsoas stretches, check in with how she is doing with size medium dilator
--- NOTE | 2023-11-22 16:39 | PT.OTN ---
Current Diagnoses Other specified disorders of muscle (11/22/23) Physical Therapy Treatment Note PT-OP-A Visit Information Start: 10/16/23 13:47 Freq: Status: Active Protocol: Document 11/22/23 14:27 [facility] (Rec: 11/22/23 15:21 [facility] [id number]) Out-Patient Physical Therapy Visit Information Visit Information Visit Type Treatment Note PT-OP-B Current Condition Start: 10/16/23 13:47 Freq: Status: Active Protocol: Document 10/16/23 13:45 [facility] (Rec: 10/18/23 15:28 [facility] [id number]) Current Condition History of Current Condition Onset Date November 2022 Current Complaints pelvic pain History of Current Condition Yessica began experiencing c/o pelvic pain with her in November 2022. She was in her second trimester with pain began. She delivered via c- section on 03/09/23. Yessica continues to present with dyspareunia since then but she does feel that maybe it is slowly getting a little better . 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 With pelvic floor evaluation today Yessica presents with muscle guarding and tension from 4-8 on the pelvic clock. She presents with left greater than right sided guarding. Yessica has difficulty relaxing her pelvic floor following a contraction . She was given a size XS dilator today and shown how to do gentle self massage work from 4-8 on the pelvic clock. She was also started with gentle pelvic floor stretching . Yessica is a good candidate for pelvic PT working towards full pelvic floor relaxation at rest. Treatment Goals Patient/Caregiver Goals Treatment goals include reducing pain so that pt is able to be intimate with her without pain PT-OP-C Subjective Start: 10/16/23 13:47 Freq: Status: Active Protocol: Document 11/22/23 14:27 [facility] (Rec: 11/22/23 15:21 [facility] [id number]) OP-PT Subjective Patient Comments Patient Comments able to use size medium dilator and symptoms are slowly improving PT-OP-F Manual Assessment Start: 10/16/23 13:47 Freq: Status: Active Protocol: Document 10/16/23 13:45 [facility] (Rec: 10/18/23 15:33 [facility] [id number]) Manual Assessments Soft Tissue Assessment Soft Tissue Mobility Assessment tightness in the lumbar paraspinals R>L PT-OP-I Pelvic Floor Start: 10/16/23 13:47 Freq: Status: Active Protocol: Document 10/16/23 13:45 [facility] (Rec: 10/18/23 15:32 [facility] [id number]) Pelvic Floor Assessment Urine Pelvic Floor Surgery No Pelvic Clock Pelvic Clock 12-3 Tightness Pelvic Clock 3-6 Guarding,Hypertonic Pelvic Clock 6-9 Guarding Pelvic Clock Other guarding on the pelvic clock from 4-6 and from 6-8 worse ont he left side the rectum is full with stool with evaluation today and does press into the vaginal wall We did talk about how a full bowel can place pressure into the vaginal wall Comments Pelvic Floor Comments pt voids per her report only 2 times per day, she has bowel movements only ever 4-6 days. She reports this is very normal for her. She was given a bladder diary to track her voids throughout the day as well as tracking her bowel movements. PT-OP-Q Treatments Start: 10/16/23 13:47 Freq: Status: Active Protocol: Document 11/22/23 14:27 [facility] (Rec: 11/22/23 15:21 [facility] [id number]) Therapeutic Exercises Supine Exercises pelvic floor holds Comments 7.7 and 14.7 uv PT-OP-T Assessment and Plan Start: 10/16/23 13:47 Freq: Status: Active Protocol: Document 11/22/23 16:33 [facility] (Rec: 11/22/23 16:38 [facility] [id number]) Physical Therapy Assessment Assessment Summary Assessment Yessica continues to report improvements of symptoms and was able to insert the size medium dilator. She was given a large size today as well as educated on the pelvic wand for self release. She does still present with resting tone around 3 uv. She has no difficulty with initiating the stream of urine and no complaints of urinary leakage Physical Therapy Plan Frequency and Duration Frequency of Treatment 1x/Week Duration of treatment (weeks) 12 Plan of Care Start Date 10/16/23 Plan of Care End Date 01/08/24 Therapeutic Interventions Therapeutic Interventions Home Exercise Program,Manual Therapy,Patient/Caregiver Education,Self-Care/Home Management,Soft Tissue Mobilization,Therapeutic Exercises Next Visit Focus/Plan Next Note Type Treatment Note Next Visit Plan assess how size large dilator did, continue working on adductor release and check superficial pelvic diaphragm next visit
--- NOTE | 2023-11-29 16:58 | PT.OTN ---
Current Diagnoses Other specified disorders of muscle (11/29/23) Segmental and somatic dysfunction of pelvic region (11/29/23) Unspecified dyspareunia (11/29/23) Physical Therapy Treatment Note PT-OP-A Visit Information Start: 10/16/23 13:47 Freq: Status: Active Protocol: Document 11/29/23 14:31 [facility] (Rec: 11/29/23 16:30 [facility] [id number]) Out-Patient Physical Therapy Visit Information Visit Information Visit Type Treatment Note Visit Start Time 14:30 Visit Stop Time 15:15 Visit Number 6 PT-OP-B Current Condition Start: 10/16/23 13:47 Freq: Status: Active Protocol: Document 10/16/23 13:45 [facility] (Rec: 10/18/23 15:28 [facility] [id number]) Current Condition History of Current Condition Onset Date November 2022 Current Complaints pelvic pain History of Current Condition Yessica began experiencing c/o pelvic pain with her in November 2022. She was in her second trimester with pain began. She delivered via c- section on 03/09/23. Yessica continues to present with dyspareunia since then but she does feel that maybe it is slowly getting a little better . 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 With pelvic floor evaluation today Yessica presents with muscle guarding and tension from 4-8 on the pelvic clock. She presents with left greater than right sided guarding. Yessica has difficulty relaxing her pelvic floor following a contraction . She was given a size XS dilator today and shown how to do gentle self massage work from 4-8 on the pelvic clock. She was also started with gentle pelvic floor stretching . Yessica is a good candidate for pelvic PT working towards full pelvic floor relaxation at rest. Treatment Goals Patient/Caregiver Goals Treatment goals include reducing pain so that pt is able to be intimate with her without pain PT-OP-C Subjective Start: 10/16/23 13:47 Freq: Status: Active Protocol: Document 11/29/23 14:31 [facility] (Rec: 11/29/23 16:30 [facility] [id number]) OP-PT Subjective Patient Comments Patient Comments hasn't tried the size large dilator yet, had a day adia where she did more exercises during the day and then felt she was tighter than she had been. PT-OP-F Manual Assessment Start: 10/16/23 13:47 Freq: Status: Active Protocol: Document 10/16/23 13:45 [facility] (Rec: 10/18/23 15:33 [facility] [id number]) Manual Assessments Soft Tissue Assessment Soft Tissue Mobility Assessment tightness in the lumbar paraspinals R>L PT-OP-I Pelvic Floor Start: 10/16/23 13:47 Freq: Status: Active Protocol: Document 10/16/23 13:45 [facility] (Rec: 10/18/23 15:32 [facility] [id number]) Pelvic Floor Assessment Urine Pelvic Floor Surgery No Pelvic Clock Pelvic Clock 12-3 Tightness Pelvic Clock 3-6 Guarding,Hypertonic Pelvic Clock 6-9 Guarding Pelvic Clock Other guarding on the pelvic clock from 4-6 and from 6-8 worse ont he left side the rectum is full with stool with evaluation today and does press into the vaginal wall We did talk about how a full bowel can place pressure into the vaginal wall Comments Pelvic Floor Comments pt voids per her report only 2 times per day, she has bowel movements only ever 4-6 days. She reports this is very normal for her. She was given a bladder diary to track her voids throughout the day as well as tracking her bowel movements. PT-OP-Q Treatments Start: 10/16/23 13:47 Freq: Status: Active Protocol: Document 11/29/23 14:30 [facility] (Rec: 11/29/23 16:58 [facility] [id number]) Manual Therapy Treatment Soft Tissue Mobilization transverse perineal release B Mobilization Type Myofascial Release Intensity/Depth Moderate Body Position Supine Comments tightness B in the transverse perineum and medial to the ischium. The pelvic wand was recommended to Yessica as a way to do a self release in this area as there were many trigger points found today. adductor release B Mobilization Type Myofascial Release Intensity/Depth Moderate Body Position Supine Comments right greater than left sided adductor tightness PT-OP-T Assessment and Plan Start: 10/16/23 13:47 Freq: Status: Active Protocol: Document 11/29/23 14:30 [facility] (Rec: 11/29/23 16:58 [facility] [id number]) Physical Therapy Assessment Assessment Summary Assessment Yessica had noted that she was doing better and then this week after adding to her walking/hiking that she was tighter again. I encouraged her that with increased activity the pelvic floor may just need some extra stretches and not to be discouraged. Her baby had also been teething and she had felt she hadn't gotten as much sleep and this could also contribute to tightness. I worked on the transverse perineum today and well as medial to the ischium and she was tight in both areas. I have recommended the pelvic wand from [employer] as well as using the dilators as the wand is curved and can get to more areas of tightness and ever externally over the transverse perineum musculature. Yessica would benefit from continued PT and the [employer] form was filled out today to request more PT visits Physical Therapy Plan Frequency and Duration Frequency of Treatment 1x/Week Duration of treatment (weeks) 12 Plan of Care Start Date 10/16/23 Plan of Care End Date 01/08/24 Therapeutic Interventions Therapeutic Interventions Home Exercise Program,Manual Therapy,Patient/Caregiver Education,Self-Care/Home Management,Soft Tissue Mobilization,Therapeutic Exercises Next Visit Focus/Plan Next Note Type Treatment Note Next Visit Plan continue with MFR techniques to the pelvic floor and adductors, stretches to help relax the levator ani
--- NOTE | 2024-03-19 12:19 | PT.OPDS ---
Current Diagnoses Other specified disorders of muscle (11/29/23) Segmental and somatic dysfunction of pelvic region (11/29/23) Unspecified dyspareunia (11/29/23) Visit Care Team Role Provider Type Indigo Underwood MD Attending Provider Physician Family Provider Primary Care Provider Referring Provider Specialty: Family Practice Address: [address] [place] [address], [id number] Email: [email or web address] Visit Number Visit Number 6 Discharge Summary PT-OP-B Current Condition Start: 10/16/23 13:47 Freq: Status: Active Protocol: Document 10/16/23 13:45 [facility] (Rec: 10/18/23 15:28 [facility] [id number]) Current Condition History of Current Condition Onset Date November 2022 Current Complaints pelvic pain History of Current Condition Yessica began experiencing c/o pelvic pain with her in November 2022. She was in her second trimester with pain began. She delivered via c- section on 03/09/23. Yessica continues to present with dyspareunia since then but she does feel that maybe it is slowly getting a little better . 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 With pelvic floor evaluation today Yessica presents with muscle guarding and tension from 4-8 on the pelvic clock. She presents with left greater than right sided guarding. Yessica has difficulty relaxing her pelvic floor following a contraction . She was given a size XS dilator today and shown how to do gentle self massage work from 4-8 on the pelvic clock. She was also started with gentle pelvic floor stretching . Yessica is a good candidate for pelvic PT working towards full pelvic floor relaxation at rest. Treatment Goals Patient/Caregiver Goals Treatment goals include reducing pain so that pt is able to be intimate with her without pain PT-OP-C Subjective Start: 10/16/23 13:47 Freq: Status: Active Protocol: Document 11/29/23 14:31 [facility] (Rec: 11/29/23 16:30 [facility] [id number]) OP-PT Subjective Patient Comments Patient Comments hasn't tried the size large dilator yet, had a day sunday where she did more exercises during the day and then felt she was tighter than she had been. PT-OP-F Manual Assessment Start: 10/16/23 13:47 Freq: Status: Active Protocol: Document 10/16/23 13:45 [facility] (Rec: 10/18/23 15:33 [facility] [id number]) Manual Assessments Soft Tissue Assessment Soft Tissue Mobility Assessment tightness in the lumbar paraspinals R>L PT-OP-I Pelvic Floor Start: 10/16/23 13:47 Freq: Status: Active Protocol: Document 10/16/23 13:45 [facility] (Rec: 10/18/23 15:32 [facility] [id number]) Pelvic Floor Assessment Urine Pelvic Floor Surgery No Pelvic Clock Pelvic Clock 12-3 Tightness Pelvic Clock 3-6 Guarding,Hypertonic Pelvic Clock 6-9 Guarding Pelvic Clock Other guarding on the pelvic clock from 4-6 and from 6-8 worse ont he left side the rectum is full with stool with evaluation today and does press into the vaginal wall We did talk about how a full bowel can place pressure into the vaginal wall Comments Pelvic Floor Comments pt voids per her report only 2 times per day, she has bowel movements only ever 4-6 days. She reports this is very normal for her. She was given a bladder diary to track her voids throughout the day as well as tracking her bowel movements. PT-OP-T Assessment and Plan Start: 10/16/23 13:47 Freq: Status: Active Protocol: Document 03/19/24 12:17 [facility] (Rec: 03/19/24 12:18 [facility] [id number]) Physical Therapy Assessment Assessment Summary Assessment Yessica will be discharged from this current chart as she had ran out of insurance coverage until the new year Physical Therapy Plan Discharge Physical Therapy Discharge Reasons No Longer Attending PT Discharge Comments pt had met her visit limit with insurance
== END 2024-03-20 13:50 | disposition home or self-care (01) ==
LOC: PHYS 14:30
PROVIDERS: Family Provider Family Medicine; PCP Family Medicine; Referring Provider Family Medicine; Visit Provider Family Medicine
DX: M62.89 Other specified disorders of muscle (principal); N94.10 Unspecified dyspareunia; M99.05 Segmental and somatic dysfunction of pelvic region
CPT/HCPCS: 97110; 97140; 97161; 97535

== ENCOUNTER → 2024-03-07 07:50 | Outpatient (CLI) | payer SELFPAY ==
[2024-03-07 10:19] LABS: COVID-19 CEPHEID 4-PLEX PCR Negative (Negative); Influenza A - CEPHEID Flu A NEGATIVE (NEGATIVE); Influenza B - CEPHEID Flu B NEGATIVE (NEGATIVE); Respiratory Syncytial Virus Negative (Negative)
== END ==
PROVIDERS: Family Provider Family Medicine; PCP Family Medicine; Visit Provider Nurse Practitioner Family
DX: J02.9 Acute pharyngitis, unspecified (principal); R05.1 Acute cough
CPT/HCPCS: 0241U; 87070; 87077; 87147

== ENCOUNTER → 2024-04-14 15:45 | Outpatient (CLI) | payer BC, SELFPAY ==
[2024-04-14 16:30] LABS: Add Manual Diff / Slide Review NO; Basophils Absolute Auto 100 /uL (0-100); Basophils Percent Auto 0.9 % (0-2); Eosinophils Absolute Auto 300 /uL (0-450); Eosinophils Percent Auto 4.2 % (2-4); Hematocrit 39.2 % (36-46); Hemoglobin 12.9 g/dL (12.0-16.0); Lymphocytes Absolute Auto 2600 /uL (1100-4500); Lymphocytes Percent Auto 43.7 % (25-40); Mean Corpuscular Volume 84.9 fL (80-100); Monocytes Absolute Auto 400 /uL (0-900); Monocytes Percent Auto 6.4 % (3-14); Neutrophils Absolute Auto 2700 /uL (1500-7000); Neutrophils Percent Auto 44.8 % (50-75); Platelet Count 399 X10^3/uL (150-400); Red Blood Cell Count 4.62 X10^6/uL (4.0-5.2); Red Cell Distribution Width 14.9 % (11.6-14.8); White Blood Cell Count 6.1 X10^3/uL (4.5-11.0)
[2024-04-14 16:39] LABS: C-Reactive Protein Quant < 0.5 mg/dL (<1.0)
[2024-04-14 16:56] LABS: Erythrocyte Sedimentation Rate 17 MM/HR (0-20)
== END ==
PROVIDERS: Family Provider Family Medicine; PCP Family Medicine; Referring Provider Psychiatry & Neurology Neurology; Visit Provider Psychiatry & Neurology Neurology
DX: G40.109 Localization-related (focal) (partial) symptomatic epilepsy and epileptic syndromes with simple partial seizures, not intractable, without status epilepticus (principal); R51.9 Headache, unspecified
CPT/HCPCS: 36415; 80175; 85025; 85651; 86140

== ENCOUNTER → 2024-04-17 10:06 | Outpatient (RCR) | payer OTHER, SELFPAY ==
--- NOTE | 2023-02-07 12:00 | PT.OIE ---
Current Diagnoses Lordosis, unspecified, lumbar region (02/07/23) Spinal instabilities, sacral and sacrococcygeal region (02/07/23) Sciatica, right side (02/07/23) Unspecified dyspareunia (02/07/23) Past Medical History (Last Updated 08/14/22 @ 08:07 by Mi Youssef RN) Acute blood loss anemia Chronic back pain (~1996) Delivery by section using transverse incision of lower segment of uterus (~05/30/21) Depression Encounter for removal of intrauterine contraceptive device (IUD) (~06/2020) Epilepsy (~2001) Fibromyalgia (~2007) Migraines PTSD (post-traumatic stress disorder) Sinusitis Trisomy 18 of fetus in current Past Surgical History (Last Updated 08/14/22 @ 08:07 by Mi Youssef, MARIAM) H/O oral surgery (~2004) Previous section [place] teeth extracted (~2019) Visit Care Team Role Provider Type Indigo Underwood MD Attending Provider Physician Family Provider Primary Care Provider Referring Provider Specialty: [facility] Practice Address: [address] [place] [address] Email: [email or web address] Physical Therapy Initial Evaluation PT-OP-A Visit Information Start: 02/07/23 08:09 Freq: Status: Active Protocol: Document 02/07/23 08:15 [facility] (Rec: 02/07/23 12:21 [facility] [id number]) Out-Patient Physical Therapy Visit Information Visit Information Visit Type Initial Evaluation Visit Start Time 08:15 Visit Stop Time 09:00 Total Visit Minutes 45 Visit Number 1 PT-OP-B Current Condition Start: 02/07/23 08:09 Freq: Status: Active Protocol: Document 02/07/23 08:15 [facility] (Rec: 02/07/23 09:10 [facility] [id number]) Current Condition History of Current Condition Onset Date with current Current Complaints pelvic pain with intercourse, low back pain rated 6-7/10, SI joint pain R>L History of Current Condition pt is 34 weeks with her second . Scheduled Mar 09 She describes a burning sensation with intercourse that is new with this and after intercourse she feels buring with voiding and has urgency and pain can last 3-4 hours. She also complains of right sided hip pain that is constant and sharp and it hurts to walk. Lateral posterior hip pain. It can feel sharp in the posterior gluteals. IT hurts to sit as well. Treatment Goals Patient/Caregiver Goals pt's goals include decreasing pain levels PT-OP-C Subjective Start: 02/07/23 08:09 Freq: Status: Active Protocol: Document 02/07/23 08:15 [facility] (Rec: 02/08/23 09:30 [facility] [id number]) Patient Questionnaires Pelvic Pain and Urgency/Frequency Patient Symptom Scale Pelvic Pain Score 16 OP-PT Pain Assessment Pain Assessment Grid Paper Pain Assessment Grid Completed Yes Location pelvic pain Pain Location Details pelvic pain only with intercourse Intensity 7 Scale Used Numeric (0 - 10) Description- Other with intercourse and following intercourse x 3-4 hours right posterior lateral hip Intensity 8 Scale Used Numeric (0 - 10) Description Radiating Description- Other pain radiates into the right buttock/gluteals low back Pain Location Details across the low back Intensity 7 Scale Used Numeric (0 - 10) PT-OP-F Manual Assessment Start: 02/07/23 08:09 Freq: Status: Active Protocol: Document 02/07/23 08:15 [facility] (Rec: 02/08/23 09:30 [facility] [id number]) Manual Assessments Soft Tissue Assessment Soft Tissue Mobility Assessment tightness of the right lumbar paraspinals, tightness of the right side iliopsoas and adductor attachments to the pubic bone Joint Mobility Assessment Joint Mobility Assessment SI instability with , + ASLR test B and + SLR test on the right side for increased dural tension and reproduction of pain down the right posterior gluteals PT-OP-J Posture/Palpation/Skin Start: 02/07/23 08:09 Freq: Status: Active Protocol: Document 02/07/23 08:15 [facility] (Rec: 02/08/23 09:30 [facility] [id number]) Posture Evaluation Position Standing Evaluation View Lateral L-Spine Posture Increased Lordosis Comments Posture Comments increased lumbar lordosis with PT-OP-K Range of Motion Start: 02/08/23 10:43 Freq: Status: Active Protocol: Document 02/07/23 08:15 [facility] (Rec: 02/08/23 10:45 [facility] [id number]) Lumbar Spine Range of Motion Lumbar Spine Active Testing Position Standing Lateral Flexion Left 10 ROM Limitations Soft Tissue Tightness Comments pain on the right paraspinals worse with lumbar flexion and left lateral flexion, pt notes she will experience right sided SI pain upon return from standing Hip Goniometric Range of Motion Hip ROM Limitations Hip ROM Limitations Pain Comments full HIP ROM and increased mobility into hip ER/IR but the SI joint tends to unlock with hip mobility increasing pain. PT-OP-L Special Tests Start: 02/08/23 10:46 Freq: Status: Active Protocol: Document 02/07/23 08:15 [facility] (Rec: 02/08/23 10:53 [facility] [id number]) Special Tests Lumbar Spine Special Tests ASLR Test Results + Comments + bilaterally for SI instability Straight Leg Raise Test Results + Comments + on the right side for increasing neural tension and radicular sx R hip PT-OP-Q Treatments Start: 02/07/23 08:09 Freq: Status: Active Protocol: Document 02/07/23 08:15 [facility] (Rec: 02/08/23 09:14 [facility] [id number]) Therapeutic Exercises Standing Exercises standing pelvic tilt against the wall Reps/Minutes x 5-10 reps Comments for pain releif during the day Other Exercises cat cow with lumbar flexion Reps/Minutes x 10 reps seated iliopsoas stretch Side bilateral Reps/Minutes hold minimum of 30 seconds each side x 2 reps PT-OP-T Assessment and Plan Start: 02/07/23 08:09 Freq: Status: Active Protocol: Document 02/07/23 08:15 [facility] (Rec: 02/08/23 09:30 [facility] [id number]) Physical Therapy Assessment Rehab Potential Rehabilitation Potential Excellent Evaluation Complexity Number of Personal Factors/Comorbidities 0 Number of Body Systems Impaired 1-2 Clinical Presentation at Evaluation Stable Impairments Impairments Activity Tolerance,Functional Activities,Pain,Posture,Soft Tissue Mobility Goals 3 Impairment stretch weakness of the transverse abdominal muscles and guarding of the adductor attachments to the pubic ramus along with c/o dysparunia Short Term Goal (STG) Yessica is educated on bracing with her TA prior to transitional movements STG Duration 4 weeks Custodial Goal (LTG) When pt returns to PT at 6 weeks post we are able to assess her pelvic floor musculature and begin working on both relaxed awareness as well as strengthening LTG Duration 12 weeks 2 Impairment Increased lumbar lordosis with with tightness of the lumbar paraspinals and iliopsoas worse on the right side Short Term Goal (STG) Yessica is educated on posture positioning, stretches for the lumbar parapsinals and iliopsoas as well as SI stability exercises for home STG Duration 4 weeks 1 Impairment LBP and bilateral hip pain worse on the right with Short Term Goal (STG) Yessica is educated on body mechanics training and with manual therapy techniques her pain levels are reduced for the remainder of her STG Duration 4 weeks Assessment Summary Assessment Yessica is 32 year old female gravda 2 para 0 referred to PT with pelvic pain, low back and SI joint pain with . She is currently 34 weeks with date of C section scheduled 2023. Yessica describes pain with intercourse that includes burning and tissure irritation and she describes after intercourse she will have buring with voiding and experience urgency. The pain can last 3-4 hours. She also reports right sided lateral and posterior hip pain with referral into the buttocks. She is limited with sitting, standing, and walking. With exam today Yessica stands in a increased lordosis with tightness of the lumbar paraspinals R>L. She presents with SI instability and + april test B. There is a + SLR test on the right side for increasing nerve pain in the right hip and buttocks. Pain is increased with PROM hip flexion, IR and ER. 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 Her right iliopsoas is much tighter than her left creating a unequal pull on her pelvis. Today with worked on a seated stretch for the iliopsoas as well as quadruped work into lumbar flexion to assist with paraspinal stretching. She reponds well to massage over her lumbar parapsinals and notes her will work on massaging her low back and this can bring her temporary relief. Yessica does have a belt which I encouraged her to use to help with SI stability. Treatment will focus on SI stabilization and postural education to avoid excessive lordosis as well as stretches for the iliopsoas and lumbar paraspinals. MFR techniques will be used over the lumbar paraspinals and piriformis musculature. Yessica is a good candidate for PT Physical Therapy Plan Frequency and Duration Frequency of Treatment 2x/Week Duration of treatment (weeks) 8 Plan of Care Start Date 02/08/23 Plan of Care End Date 04/05/23 Therapeutic Interventions Therapeutic Interventions Home Exercise Program,Manual Therapy,Neuromuscular Re- education,Patient/Caregiver Education,Self-Care/Home Management,Soft Tissue Mobilization,Therapeutic Exercises Next Visit Focus/Plan Next Note Type Treatment Note Next Visit Plan review iliopsoas stretches and lumbar paraspinal stretches, add in TA stabilization and begin working on soft tissue release of the paraspinals with prone body pillow
--- NOTE | 2023-02-08 11:08 | PT.OPPOC ---
Physical, Occupational & Speech Therapy At [facility] Current Diagnoses Lordosis, unspecified, lumbar region (02/07/23) Spinal instabilities, sacral and sacrococcygeal region (02/07/23) Sciatica, right side (02/07/23) Unspecified dyspareunia (02/07/23) Visit Care Team Role Provider Type Indigo Underwood MD Attending Provider Physician Family Provider Primary Care Provider Referring Provider Specialty: Family Practice Address: [address] [place] [address] Email: [email or web address] Plan Of Care PT-OP-T Assessment and Plan Start: 02/07/23 08:09 Freq: Status: Active Protocol: Document 02/07/23 08:15 [facility] (Rec: 02/08/23 09:30 [facility] [id number]) Physical Therapy Assessment Rehab Potential Rehabilitation Potential Excellent Evaluation Complexity Number of Personal Factors/Comorbidities 0 Number of Body Systems Impaired 1-2 Clinical Presentation at Evaluation Stable Impairments Impairments Activity Tolerance,Functional Activities,Pain,Posture,Soft Tissue Mobility Goals 3 Impairment stretch weakness of the transverse abdominal muscles and guarding of the adductor attachments to the pubic ramus along with c/o dysparunia Short Term Goal (STG) Yessica is educated on bracing with her TA prior to transitional movements STG Duration 4 weeks Retirement Goal (LTG) When pt returns to PT at 6 weeks post we are able to assess her pelvic floor musculature and begin working on both relaxed awareness as well as strengthening LTG Duration 12 weeks 2 Impairment Increased lumbar lordosis with with tightness of the lumbar paraspinals and iliopsoas worse on the right side Short Term Goal (STG) Yessica is educated on posture positioning, stretches for the lumbar parapsinals and iliopsoas as well as SI stability exercises for home STG Duration 4 weeks 1 Impairment LBP and bilateral hip pain worse on the right with Short Term Goal (STG) Yessica is educated on body mechanics training and with manual therapy techniques her pain levels are reduced for the remainder of her STG Duration 4 weeks Assessment Summary Assessment Yessica is 32 year old female gravda 2 para 0 referred to PT with pelvic pain, low back and SI joint pain with . She is currently 34 weeks with date of C section scheduled 2023. Yessica describes pain with intercourse that includes burning and tissue irritation and she describes after intercourse she will have burning with voiding and experience urgency. The pain can last 3-4 hours. She also reports right sided lateral and posterior hip pain with referral into the buttocks. She is limited with sitting, standing, and walking. With exam today Yessica stands in a increased lordosis with tightness of the lumbar paraspinals R>L. She presents with SI instability and + april test B. There is a + SLR test on the right side for increasing nerve pain in the right hip and buttocks. Pain is increased with PROM hip flexion, IR and ER. 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 Her right iliopsoas is much tighter than her left creating a unequal pull on her pelvis. Today with worked on a seated stretch for the iliopsoas as well as quadruped work into lumbar flexion to assist with paraspinal stretching. She responds well to massage over her lumbar parapsinals and notes her will work on massaging her low back and this can bring her temporary relief. Yessica does have a belt which I encouraged her to use to help with SI stability. Treatment will focus on SI stabilization and postural education to avoid excessive lordosis as well as stretches for the iliopsoas and lumbar paraspinals. MFR techniques will be used over the lumbar paraspinals and piriformis musculature. Yessica is a good candidate for PT Physical Therapy Plan Frequency and Duration Frequency of Treatment 2x/Week Duration of treatment (weeks) 8 Plan of Care Start Date 02/08/23 Plan of Care End Date 04/05/23 Therapeutic Interventions Therapeutic Interventions Home Exercise Program,Manual Therapy,Neuromuscular Re- education,Patient/Caregiver Education,Self-Care/Home Management,Soft Tissue Mobilization,Therapeutic Exercises Next Visit Focus/Plan Next Note Type Treatment Note Next Visit Plan review iliopsoas stretches and lumbar paraspinal stretches, add in TA stabilization and begin working on soft tissue release of the paraspinals with prone body pillow Plan of Care Dates Plan of Care Start Date 02/08/23 Plan of Care End Date 04/05/23 Electronically Signed by: Rose Mary Gentile, PT 02/08/23 4313 If you are in agreement with this Plan of Care, please return a signed and dated copy. I have reviewed this Plan of Care and certify that the skilled therapy services above are required to meet the patient?s needs. Physician Signature Date Printed Name and Credentials Clinical Instructor Signature Printed Name and Credentials
--- NOTE | 2023-02-14 12:42 | PT.OTN ---
Current Diagnoses Lordosis, unspecified, lumbar region (02/14/23) Spinal instabilities, sacral and sacrococcygeal region (02/14/23) Sciatica, right side (02/14/23) Unspecified dyspareunia (02/14/23) Physical Therapy Treatment Note PT-OP-A Visit Information Start: 02/07/23 08:09 Freq: Status: Active Protocol: Document 02/14/23 08:15 [facility] (Rec: 02/14/23 12:41 [facility] [id number]) Out-Patient Physical Therapy Visit Information Visit Information Visit Type Treatment Note Visit Start Time 08:15 Visit Stop Time 09:00 Total Visit Minutes 45 Visit Number 2 PT-OP-B Current Condition Start: 02/07/23 08:09 Freq: Status: Active Protocol: Document 02/07/23 08:15 [facility] (Rec: 02/07/23 09:10 [facility] [id number]) Current Condition History of Current Condition Onset Date with current Current Complaints pelvic pain with intercourse, low back pain rated 6-7/10, SI joint pain R>L History of Current Condition pt is 34 weeks with her second . Scheduled Mar 09 She describes a burning sensation with intercourse that is new with this and after intercourse she feels buring with voiding and has urgency and pain can last 3-4 hours. She also complains of right sided hip pain that is constant and sharp and it hurts to walk. Lateral posterior hip pain. It can feel sharp in the posterior gluteals. IT hurts to sit as well. Treatment Goals Patient/Caregiver Goals pt's goals include decreasing pain levels PT-OP-C Subjective Start: 02/07/23 08:09 Freq: Status: Active Protocol: Document 02/14/23 08:15 [facility] (Rec: 02/14/23 12:41 [facility] [id number]) OP-PT Subjective Patient Comments Patient Comments Yessica reports she has been working on her hip stretching PT-OP-F Manual Assessment Start: 02/07/23 08:09 Freq: Status: Active Protocol: Document 02/07/23 08:15 [facility] (Rec: 02/08/23 09:30 [facility] [id number]) Manual Assessments Soft Tissue Assessment Soft Tissue Mobility Assessment tightness of the right lumbar paraspinals, tightness of the right side iliopsoas and adductor attachments to the pubic bone Joint Mobility Assessment Joint Mobility Assessment SI instability with , + ASLR test B and + SLR test on the right side for increased dural tension and reproduction of pain down the right posterior gluteals PT-OP-J Posture/Palpation/Skin Start: 02/07/23 08:09 Freq: Status: Active Protocol: Document 02/07/23 08:15 [facility] (Rec: 02/08/23 09:30 [facility] [id number]) Posture Evaluation Position Standing Evaluation View Lateral L-Spine Posture Increased Lordosis Comments Posture Comments increased lumbar lordosis with PT-OP-K Range of Motion Start: 02/08/23 10:43 Freq: Status: Active Protocol: Document 02/07/23 08:15 [facility] (Rec: 02/08/23 10:45 [facility] [id number]) Lumbar Spine Range of Motion Lumbar Spine Active Testing Position Standing Lateral Flexion Left 10 ROM Limitations Soft Tissue Tightness Comments pain on the right paraspinals worse with lumbar flexion and left lateral flexion, pt notes she will experience right sided SI pain upon return from standing Hip Goniometric Range of Motion Hip ROM Limitations Hip ROM Limitations Pain Comments full HIP ROM and increased mobility into hip ER/IR but the SI joint tends to unlock with hip mobility increasing pain. PT-OP-L Special Tests Start: 02/08/23 10:46 Freq: Status: Active Protocol: Document 02/07/23 08:15 [facility] (Rec: 02/08/23 10:53 [facility] [id number]) Special Tests Lumbar Spine Special Tests ASLR Test Results + Comments + bilaterally for SI instability Straight Leg Raise Test Results + Comments + on the right side for increasing neural tension and radicular sx R hip PT-OP-Q Treatments Start: 02/07/23 08:09 Freq: Status: Active Protocol: Document 02/14/23 08:15 [facility] (Rec: 02/14/23 12:37 [facility] [id number]) Therapeutic Exercises Supine Exercises supine ball squeeze with pelvic floor Reps/Minutes x 10 reps holding 5 seconds Other Exercises quadruped TA facilitation Reps/Minutes worked on isolation of the TA in quadruped cat cow with lumbar flexion Reps/Minutes x 10 reps seated iliopsoas stretch Other Exercise Name HEP Manual Therapy Treatment Soft Tissue Mobilization prone over pillow Mobilization Type Myofascial Release Intensity/Depth Moderate Body Position Prone Comments pt felt comfortable on body pillow for , worked on relaxing the right paraspinals and right gluteals PT-OP-T Assessment and Plan Start: 02/07/23 08:09 Freq: Status: Active Protocol: Document 02/14/23 08:15 [facility] (Rec: 02/14/23 12:40 [facility] [id number]) Physical Therapy Assessment Assessment Summary Assessment Yessica tolerated soft tissue work well over the lower back and into the right gluteals, we worked on TA isolation in quadruped and her upper obliques are tight so like to pull her into a arch. She notes pain at her sitting bones so we talked about sitting with sitting bones spread and she may benefit from MFR for the obtuator internus next visit in sidelying Physical Therapy Plan Frequency and Duration Frequency of Treatment 2x/Week Duration of treatment (weeks) 8 Plan of Care Start Date 02/08/23 Plan of Care End Date 04/05/23 Therapeutic Interventions Therapeutic Interventions Home Exercise Program,Manual Therapy,Neuromuscular Re- education,Patient/Caregiver Education,Self-Care/Home Management,Soft Tissue Mobilization,Therapeutic Exercises Next Visit Focus/Plan Next Note Type Treatment Note Next Visit Plan work in sidelying on obturatur internus release next visit
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
--- NOTE | 2023-02-28 12:35 | PT.OTN ---
Current Diagnoses Lordosis, unspecified, lumbar region (02/28/23) Spinal instabilities, sacral and sacrococcygeal region (02/28/23) Sciatica, right side (02/28/23) Unspecified dyspareunia (02/28/23) Physical Therapy Treatment Note PT-OP-A Visit Information Start: 02/07/23 08:09 Freq: Status: Active Protocol: Document 02/28/23 09:05 [facility] (Rec: 02/28/23 12:34 [facility] [id number]) Out-Patient Physical Therapy Visit Information Visit Information Visit Type Treatment Note Visit Start Time 09:05 Visit Stop Time 09:50 Visit Number 3 PT-OP-B Current Condition Start: 02/07/23 08:09 Freq: Status: Active Protocol: Document 02/07/23 08:15 [facility] (Rec: 02/07/23 09:10 [facility] [id number]) Current Condition History of Current Condition Onset Date with current Current Complaints pelvic pain with intercourse, low back pain rated 6-7/10, SI joint pain R>L History of Current Condition pt is 34 weeks with her second . Scheduled Mar 09 She describes a burning sensation with intercourse that is new with this and after intercourse she feels buring with voiding and has urgency and pain can last 3-4 hours. She also complains of right sided hip pain that is constant and sharp and it hurts to walk. Lateral posterior hip pain. It can feel sharp in the posterior gluteals. IT hurts to sit as well. Treatment Goals Patient/Caregiver Goals pt's goals include decreasing pain levels PT-OP-C Subjective Start: 02/07/23 08:09 Freq: Status: Active Protocol: Document 02/28/23 09:06 [facility] (Rec: 02/28/23 09:52 [facility] [id number]) OP-PT Subjective Patient Comments Patient Comments pt saw chiro and this helped her neck PT-OP-F Manual Assessment Start: 02/07/23 08:09 Freq: Status: Active Protocol: Document 02/07/23 08:15 [facility] (Rec: 02/08/23 09:30 [facility] [id number]) Manual Assessments Soft Tissue Assessment Soft Tissue Mobility Assessment tightness of the right lumbar paraspinals, tightness of the right side iliopsoas and adductor attachments to the pubic bone Joint Mobility Assessment Joint Mobility Assessment SI instability with , + ASLR test B and + SLR test on the right side for increased dural tension and reproduction of pain down the right posterior gluteals PT-OP-J Posture/Palpation/Skin Start: 02/07/23 08:09 Freq: Status: Active Protocol: Document 02/07/23 08:15 [facility] (Rec: 02/08/23 09:30 [facility] [id number]) Posture Evaluation Position Standing Evaluation View Lateral L-Spine Posture Increased Lordosis Comments Posture Comments increased lumbar lordosis with PT-OP-K Range of Motion Start: 02/08/23 10:43 Freq: Status: Active Protocol: Document 02/07/23 08:15 [facility] (Rec: 02/08/23 10:45 [facility] [id number]) Lumbar Spine Range of Motion Lumbar Spine Active Testing Position Standing Lateral Flexion Left 10 ROM Limitations Soft Tissue Tightness Comments pain on the right paraspinals worse with lumbar flexion and left lateral flexion, pt notes she will experience right sided SI pain upon return from standing Hip Goniometric Range of Motion Hip ROM Limitations Hip ROM Limitations Pain Comments full HIP ROM and increased mobility into hip ER/IR but the SI joint tends to unlock with hip mobility increasing pain. PT-OP-L Special Tests Start: 02/08/23 10:46 Freq: Status: Active Protocol: Document 02/07/23 08:15 [facility] (Rec: 02/08/23 10:53 [facility] [id number]) Special Tests Lumbar Spine Special Tests ASLR Test Results + Comments + bilaterally for SI instability Straight Leg Raise Test Results + Comments + on the right side for increasing neural tension and radicular sx R hip PT-OP-Q Treatments Start: 02/07/23 08:09 Freq: Status: Active Protocol: Document 02/28/23 09:05 [facility] (Rec: 02/28/23 12:34 [facility] [id number]) Therapeutic Exercises Other Exercises nixon pose stretch Reps/Minutes hold 1-2 min Manual Therapy Treatment Soft Tissue Mobilization left adductor release Mobilization Type Myofascial Release Intensity/Depth Moderate Comments MFR for the left adductors in supine position prone over pillow Body Location lumbar paraspinals Mobilization Type Myofascial Release Intensity/Depth Moderate Body Position Prone Comments pt felt comfortable on body pillow for , worked on relaxing the bilateral paraspinals and bilateral gluteals, worked more on the left side today as she is feeling more left sided tightness PT-OP-T Assessment and Plan Start: 02/07/23 08:09 Freq: Status: Active Protocol: Document 02/28/23 09:05 [facility] (Rec: 02/28/23 12:34 [facility] [id number]) Physical Therapy Assessment Assessment Summary Assessment Yessica notes she felt better with the left adductor after today's visit, we discussed trying to stay symmetrical with ADL to avoid any shift of her SI joint. Physical Therapy Plan Frequency and Duration Frequency of Treatment 2x/Week Duration of treatment (weeks) 8 Plan of Care Start Date 02/08/23 Plan of Care End Date 04/05/23 Therapeutic Interventions Therapeutic Interventions Home Exercise Program,Manual Therapy,Neuromuscular Re- education,Patient/Caregiver Education,Self-Care/Home Management,Soft Tissue Mobilization,Therapeutic Exercises Next Visit Focus/Plan Next Note Type Treatment Note Next Visit Plan reassess leg length next visit and check in with paraspinal tightness.
--- NOTE | 2023-03-07 13:02 | PT.OTN ---
Current Diagnoses Lordosis, unspecified, lumbar region (03/07/23) Spinal instabilities, sacral and sacrococcygeal region (03/07/23) Sciatica, right side (03/07/23) Unspecified dyspareunia (03/07/23) Physical Therapy Treatment Note PT-OP-A Visit Information Start: 02/07/23 08:09 Freq: Status: Active Protocol: Document 03/07/23 09:00 [facility] (Rec: 03/07/23 13:02 [facility] [id number]) Out-Patient Physical Therapy Visit Information Visit Information Visit Type Treatment Note Visit Start Time 09:00 Visit Stop Time 09:45 Visit Number 4 PT-OP-B Current Condition Start: 02/07/23 08:09 Freq: Status: Active Protocol: Document 02/07/23 08:15 [facility] (Rec: 02/07/23 09:10 [facility] [id number]) Current Condition History of Current Condition Onset Date with current Current Complaints pelvic pain with intercourse, low back pain rated 6-7/10, SI joint pain R>L History of Current Condition pt is 34 weeks with her second . Scheduled Mar 09 She describes a burning sensation with intercourse that is new with this and after intercourse she feels buring with voiding and has urgency and pain can last 3-4 hours. She also complains of right sided hip pain that is constant and sharp and it hurts to walk. Lateral posterior hip pain. It can feel sharp in the posterior gluteals. IT hurts to sit as well. Treatment Goals Patient/Caregiver Goals pt's goals include decreasing pain levels PT-OP-C Subjective Start: 02/07/23 08:09 Freq: Status: Active Protocol: Document 03/07/23 09:03 [facility] (Rec: 03/07/23 09:47 [facility] [id number]) OP-PT Subjective Patient Comments Patient Comments pt feels left side thoracic symptoms feels tight but able to do her stretches PT-OP-F Manual Assessment Start: 02/07/23 08:09 Freq: Status: Active Protocol: Document 02/07/23 08:15 [facility] (Rec: 02/08/23 09:30 [facility] [id number]) Manual Assessments Soft Tissue Assessment Soft Tissue Mobility Assessment tightness of the right lumbar paraspinals, tightness of the right side iliopsoas and adductor attachments to the pubic bone Joint Mobility Assessment Joint Mobility Assessment SI instability with , + ASLR test B and + SLR test on the right side for increased dural tension and reproduction of pain down the right posterior gluteals PT-OP-J Posture/Palpation/Skin Start: 02/07/23 08:09 Freq: Status: Active Protocol: Document 02/07/23 08:15 [facility] (Rec: 02/08/23 09:30 [facility] [id number]) Posture Evaluation Position Standing Evaluation View Lateral L-Spine Posture Increased Lordosis Comments Posture Comments increased lumbar lordosis with PT-OP-K Range of Motion Start: 02/08/23 10:43 Freq: Status: Active Protocol: Document 02/07/23 08:15 [facility] (Rec: 02/08/23 10:45 [facility] [id number]) Lumbar Spine Range of Motion Lumbar Spine Active Testing Position Standing Lateral Flexion Left 10 ROM Limitations Soft Tissue Tightness Comments pain on the right paraspinals worse with lumbar flexion and left lateral flexion, pt notes she will experience right sided SI pain upon return from standing Hip Goniometric Range of Motion Hip ROM Limitations Hip ROM Limitations Pain Comments full HIP ROM and increased mobility into hip ER/IR but the SI joint tends to unlock with hip mobility increasing pain. PT-OP-L Special Tests Start: 02/08/23 10:46 Freq: Status: Active Protocol: Document 02/07/23 08:15 [facility] (Rec: 02/08/23 10:53 [facility] [id number]) Special Tests Lumbar Spine Special Tests ASLR Test Results + Comments + bilaterally for SI instability Straight Leg Raise Test Results + Comments + on the right side for increasing neural tension and radicular sx R hip PT-OP-Q Treatments Start: 02/07/23 08:09 Freq: Status: Active Protocol: Document 03/07/23 09:00 [facility] (Rec: 03/07/23 13:02 [facility] [id number]) Manual Therapy Treatment Soft Tissue Mobilization prone over pillow thoracic parapsinals release Mobilization Type Myofascial Release Comments pt c/o of left sided upper thoracic discomfort today piriformis release B Mobilization Type Myofascial Release Comments pt is positioned comfortably in prone over the body pillow. Left greater than right sided tightness today prone over pillow Body Location lumbar paraspinals Mobilization Type Myofascial Release Intensity/Depth Moderate Body Position Prone Comments pt felt comfortable on body pillow for , worked on relaxing the bilateral paraspinals and bilateral gluteals, worked more on the left side today as she is feeling more left sided tightness Manual Techniques manual iliopsoas stretch in supine Body Location iliopsoas B Comments worked on a modified tiffany test position with leg in extension and opp knee bent with foot on treatment table working to release the iliopsoas B PT-OP-T Assessment and Plan Start: 02/07/23 08:09 Freq: Status: Active Protocol: Document 03/07/23 09:00 [facility] (Rec: 03/07/23 13:02 [facility] [id number]) Physical Therapy Assessment Assessment Summary Assessment Yessica was feeling increased tightness in the region of the round ligaments B as well as increased tightness in iliopsoas today. She tolerated manual stretches well and I worked on relaxing her paraspinals. She has a planned C section for Mar 09. Yessica plans on returning to PT after her 6 weeks post check up so we can evaluate her pelvic floor muscles at that time due to pelvic pain. Physical Therapy Plan Frequency and Duration Frequency of Treatment 2x/Week Duration of treatment (weeks) 8 Plan of Care Start Date 02/08/23 Plan of Care End Date 04/05/23 Therapeutic Interventions Therapeutic Interventions Home Exercise Program,Manual Therapy,Neuromuscular Re- education,Patient/Caregiver Education,Self-Care/Home Management,Soft Tissue Mobilization,Therapeutic Exercises Next Visit Focus/Plan Next Note Type Re-Evaluation Next Visit Plan pt will be returning post for her next visit and will require a re-evaluation
== END | disposition home or self-care (01) ==
LOC: PHYS 02-07 07:59
PROVIDERS: Family Provider Family Medicine; PCP Family Medicine; Referring Provider Family Medicine; Visit Provider Family Medicine
DX: N94.10 Unspecified dyspareunia (principal); M54.31 Sciatica, right side; M40.56 Lordosis, unspecified, lumbar region; M53.2X8 Spinal instabilities, sacral and sacrococcygeal region
CPT/HCPCS: 97110; 97140; 97161

== ENCOUNTER 2024-04-20 02:06 | Emergency (ER) | payer BC, SELFPAY ==
[2024-04-20 02:23] VITALS: BP 157/80; BP 160/89; PULSE 60; PULSE 62; RESP 14; RESP 20; TEMP 36.9; O2SAT 100; BMI 21.1
--- NOTE | 2024-04-20 02:26 | ED.ABDPAIN ---
HPI - Abdominal Pain General Chief Complaint: Abdominal Pain Stated Complaint: Abdominal pain; tender to touch Time Seen by Provider: 04/20/24 02:17 History of Present Illness HPI narrative: Patient is a 33-year-old female history of PTSD depression fibromyalgia epilepsy presenting to day with abdominal pain. She reports that she has had waves of abdominal pain ongoing for the last 24 hours. It is worse at night when she lays down. She feels nauseous thought she might be able to throw up but not able to do so. No significant diarrhea or constipation. No fever or chills. Tried to make herself throw up tonight because it might make her feel better but she was unable to. She did eat throughout the day pain was slightly better however when she lay down pain was worse. She reports that it is pain from her sternum to her pubic bone but does seem to be more mid and upper abdomen in the lower abdomen. Related Data Previous Rx's Medication Instructions Recorded lamotrigine 25 mg tablet,extended 25 mg PO DAILY #30 tabs 12/22/22 release 24 hr ondansetron 4 mg disintegrating 4 mg PO Q8H PRN nausea and 04/20/24 tablet vomiting #10 tabs Allergies Allergy/AdvReac Type Severity Reaction Status Date / Time No Known Drug Allergies Allergy Verified 04/04/24 08:31 Patient History Medical History History of IUFD History of placenta abruption Migraines PTSD (post-traumatic stress disorder) Depression Acute blood loss anemia Delivery by section using transverse incision of lower segment of uterus (~05/30/21) Trisomy 18 of fetus in current Epilepsy (~2001) Fibromyalgia (~2007) Chronic back pain (~1996) Surgical History Previous section H/O oral surgery (~2004) [place] teeth extracted (~2019) Family History Mother Hyperlipidemia Grandfather Myocardial infarction Grandmother History of heart attack Diabetes mellitus Hypertension Grandfather History of heart attack Hypertension Diabetes mellitus Father Hypertension Diabetes mellitus Grandmother No problems noted. Social History marital status: number of children: 0 household members: spouse and family (grandmother lives in MIL apartment) lives independently: Yes caregiver/support person: Yes housing: house pets and animals: Yes (2 fish) education level: college (Associate's degree) occupational status: employed current occupational exposures/hazards: No special calderon needs: No travel history: over 6 months ago seatbelt use: always water heater temp set < 120 deg: Yes working smoke detector in home: Yes fire extinguisher in home: Yes carbon monox detector in home: Yes firearms in home: Yes firearms unloaded and locked: Yes do you feel safe at home: Yes Smoking Status: Never smoker second hand exposure: No alcohol intake: former (rarely when not ) substance use type: does not use during the past year weight has: other (currently 14 months , currently back to approx pre- weight) well-balanced diet: daily or most days (tends not to eat enough if she doesn't track her foods) daily servings fruits/ve or more times/day caffeine: Yes (occasionally green tea) Type(s) of exercise: walking, other (hiking), running and normal ROM and activity frequency: daily duration: 30-45 minutes/day Smoking Status: Never smoker alcohol intake frequency: other Exam Initial Vital Signs Initial Vital Signs: Vital Signs Temperature 98.5 F 04/20/24 02:23 Pulse Rate 62 04/20/24 02:23 Respiratory Rate 20 04/20/24 02:23 Blood Pressure 157/80 H 04/20/24 02:23 Pulse Oximetry 100 04/20/24 02:23 Oxygen Delivery Method Room Air 04/20/24 02:23 GENERAL: Alert well-appearing 33-year-old female and in no acute distress. HEENT: Head atraumatic,EOMI, pupils reactive, face symmetric, moist mucous membranes CARDIOVASCULAR: Regular rate and rhythm without murmurs, rubs or gallops. RESPIRATORY: Breath sounds equal bilaterally, no wheezes rales or rhonchi. ABDOMEN: Soft, epigastric pain no real Brothers's sign no distention minimal lower abdominal pain both left side and right side EXTREMITIES: Normal range of motion, no clubbing or edema. Neurovascularly intact NEUROLOGICAL: Alert and oriented x4.Normal gait and speech. Cranial nerves II through XII grossly intact SKIN: Warm, dry, no laceration, no petechiae, no rashes or lesions. Course Orders Ordered: ED Orders 04/20/24 02:12 Urine Microscopic Stat 04/20/24 02:28 Complete Blood Count AUTO DIFF Stat Comprehensive Metabolic Panel Stat Lipase Stat 04/20/24 03:06 US abdomen complete Stat Discontinued Medications Hydromorphone HCl (Hydromorphone 0.5 Mg Inj) 0.5 mg IV NOW ONE Stop: 04/20/24 03:07 Last Admin: 04/20/24 03:10 Dose: 0.5 mg Documented By: MARIELOS Ketorolac Tromethamine (Ketorolac 30 Mg/Ml Vial) 15 mg IV NOW ONE Stop: 04/20/24 02:34 Last Admin: 04/20/24 02:41 Dose: 15 mg Documented By: MARIELOS Ondansetron HCl (Ondansetron 4 Mg/2 Ml Inj) 4 mg IV NOW ONE Stop: 04/20/24 02:34 Last Admin: 04/20/24 02:41 Dose: 4 mg Documented By: MARIELOS Ondansetron HCl (Ondansetron 4 Mg/2 Ml Inj) 4 mg IV NOW ONE Stop: 04/20/24 03:14 Last Admin: 04/20/24 03:16 Dose: 4 mg Documented By: MARIELOS Pantoprazole Sodium (Pantoprazole 40 Mg Vial) 40 mg IV NOW ONE Stop: 04/20/24 02:34 Last Admin: 04/20/24 02:41 Dose: 40 mg Documented By: MARIELOS Vital Signs Vital signs: Vital Signs - 8 hr 04/20/24 02:23 04/20/24 02:23 04/20/24 02:23 Temperature 98.5 F Pulse Rate 62 60 Respiratory Rate 20 14 Blood Pressure 157/80 H 160/89 H Pulse Oximetry 100 100 Oxygen Delivery Method Room Air Room Air 04/20/24 02:30 04/20/24 02:30 04/20/24 03:00 Temperature Pulse Rate 63 Respiratory Rate 14 Blood Pressure 143/89 H 123/65 Pulse Oximetry 100 Oxygen Delivery Method Room Air 04/20/24 03:00 04/20/24 03:30 04/20/24 03:30 Temperature Pulse Rate 56 L 56 L Respiratory Rate 16 Blood Pressure 108/55 L Pulse Oximetry 99 98 Oxygen Delivery Method Room Air Room Air 04/20/24 04:00 04/20/24 04:00 Temperature Pulse Rate 56 L Respiratory Rate 14 Blood Pressure 117/67 Pulse Oximetry 97 Oxygen Delivery Method Room Air MDM - Abdominal Pain Lab Data 04/20/24 02:28 04/20/24 02:28 Labs: Lab Results 04/20/24 04/20/24 Range/Units 02:12 02:28 WBC 6.5 (4.5-11.0) X10^3/uL RBC 4.37 (4.0-5.2) X10^6/uL Hgb 12.1 (12.0-16.0) g/dL Hct 36.7 (36-46) % MCV 84.0 (80-100) fL MCH 27.8 (26-34) PG MCHC 33.1 (30-36) % RDW 15.1 H (11.6-14.8) % Plt Count 344 (150-400) X10^3/uL Neut % (Auto) 49.1 L (50-75) % Lymph % (Auto) 37.6 (25-40) % Hughes % (Auto) 7.0 (3-14) % Eos % (Auto) 5.5 H (2-4) % Baso % (Auto) 0.8 (0-2) % Neut # (Auto) 3200 (1056-5485) /uL Lymph # (Auto) 2400 (7781-8410) /uL Hughes # (Auto) 400 (0-900) /uL Eos # (Auto) 400 (0-450) /uL Baso # (Auto) 100 (0-100) /uL Sodium 137 (137-145) mmol/L Potassium 3.8 (3.4-5.1) mmol/L Chloride 103 (98-107) mmol/L Carbon Dioxide 27 (22-32) mmol/L BUN 19 H (7-17) mg/dL Creatinine 0.99 (0.52-1.04) mg/dL Estimated GFR > 60 (>60) mL/min BUN/Creatinine Ratio 19.2 (6-22) Glucose 107 H (70-100) mg/dL Calcium 9.4 (8.4-10.2) mg/dL Total Bilirubin 0.3 (0.2-1.3) mg/dL AST 25 (14-36) IU/L ALT 15 (<35) IU/L Alkaline Phosphatase 101 (38-126) U/L Total Protein 7.5 (6.3-8.2) g/dL Albumin 4.3 (3.5-5.0) g/dL Globulin 3.2 (1.7-4.1) g/dL Albumin/Globulin Ratio 1.3 (1.0-2.8) Lipase 231 (23-300) U/L Urine RBC 0-1/hpf (0-5/HPF) Urine WBC 0-1/hpf (0-5/HPF) Ur Squamous Epith Cells 10-30 /hpf H (0-5/HPF) Urine Bacteria Few (2-10) H (None) Urine Mucus 3+ H (Negative) Ur Culture Indicated? Cult not indicated Vol Urine Centrifuged 10ml (spun) Point of care testing: Point of Care Testing Test Results Negative Urine Dip Bedside Urine Glucose Negative Bedside Urine Bilirubin - Negative Bedside Urine Ketone - Negative Urine Specific [place] 1.030 Bedside Urine Occult Blood - Negative Bedside Urine pH 6.0 Bedside Urine Protein + 30 Bedside Urine Urobilinogen - Negative Bedside Urine Nitrite - Negative Bedside Urine Leukocytes - Negative Esterase Imaging Data US - abdomen: Radiologist's Impression: Preliminary report no cholecystitis appendix not visualized if concerned recommend CT MDM Narrative Medical decision making narrative: 33-year-old female presenting today with epigastric pain and nausea. She was quite tender pain is all around her abdomen Blood work reviewed overall reassuring No leukocytosis WBC 6.5 No electrolyte abnormality no JUANIS Bilirubin liver enzymes lipase all within normal limits Ultrasound reviewed no acute findings Patient feeling much better after Toradol Dilaudid and Zofran proton. She is not really having any lower abdominal pain pain epigastric region is better At this time I do not see need to go to order CT. Discussed this with patient she agrees. Discharge Plan Departure Patient Disposition: Home Clinical Impression: Nausea & vomiting Instructions: DI for Viral Gastroenteritis -- Adult Activity Restrictions/Additional Instructions: *You have been diagnosed with gastroenteritis *What to do: At this time increase fluids as tolerated *Continue to take medications as directed Zofran 4 mg every 8 hours if needed for nausea or vomiting Motrin or Tylenol as needed for pain *Follow up with your primary care provider in 2-3 days or call [phone] *Return to ER if you should have persistent nausea vomiting increasing pain or any new, worsening or concerning symptoms Prescriptions: New ondansetron 4 mg tablet,disintegrating 4 mg PO Q8H PRN (Reason: nausea and vomiting) Qty: 10 0RF No Action lamotrigine 25 mg tablet extended release 24hr 25 mg PO DAILY Qty: 30 3RF Referrals: Indigo Underwood MD [Primary Care Provider] - Stand Alone Forms: Patient Portal/API/Survey
[2024-04-20 02:30] VITALS: BP 143/89; PULSE 63; RESP 14; O2SAT 100
[2024-04-20 02:37] LABS: Bacteria Urine Few (2-10); RBC Urine 0-1/HPF (0-5/HPF); Urine Volume 10mL (spun); WBC Urine 0-1/HPF (0-5/HPF)
[2024-04-20 02:38] LABS: Culture Indicated Urine Cult Not Indicated; Mucus Urine 3+ (Negative); Squamous Epithelial Cell Urine 10-30 /HPF (0-5/HPF)
[2024-04-20] MEDS: PANTOPRAZOLE 40 MG VIAL IV (02:41)
[2024-04-20] MEDS: ONDANSETRON 4 MG/2 ML INJ IV ×2 (02:41→03:16)
[2024-04-20] MEDS: KETOROLAC 30 MG/ML VIAL 15 MG IV (02:41)
[2024-04-20 02:43] LABS: Add Manual Diff / Slide Review NO; Basophils Absolute Auto 100 /uL (0-100); Basophils Percent Auto 0.8 % (0-2); Eosinophils Absolute Auto 400 /uL (0-450); Eosinophils Percent Auto 5.5 % (2-4); Hematocrit 36.7 % (36-46); Hemoglobin 12.1 g/dL (12.0-16.0); Lymphocytes Absolute Auto 2400 /uL (1100-4500); Lymphocytes Percent Auto 37.6 % (25-40); Mean Corpuscular HGB Conc 33.1 % (30-36); Mean Corpuscular Hemoglobin 27.8 PG (26-34); Monocytes Absolute Auto 400 /uL (0-900); Neutrophils Absolute Auto 3200 /uL (1500-7000); Neutrophils Percent Auto 49.1 % (50-75); Platelet Count 344 X10^3/uL (150-400); Red Blood Cell Count 4.37 X10^6/uL (4.0-5.2); Red Cell Distribution Width 15.1 % (11.6-14.8); White Blood Cell Count 6.5 X10^3/uL (4.5-11.0)
[2024-04-20 02:51] LABS: Alanine Aminotransferase 15 IU/L (<35); Albumin 4.3 g/dL (3.5-5.0); Albumin Globulin Ratio 1.3 (1.0-2.8); Alkaline Phosphatase 101 U/L (38-126); Aspartate Aminotransferase 25 IU/L (14-36); BUN Creatinine Ratio 19.2 (6-22); Bilirubin Total 0.3 mg/dL (0.2-1.3); Blood Urea Nitrogen 19 mg/dL (7-17); Calcium 9.4 mg/dL (8.4-10.2); Carbon Dioxide 27 mmol/L (22-32); Chloride 103 mmol/L (98-107); Estimated Glomerular Filt Rate > 60 mL/min (>60); Globulin 3.2 g/dL (1.7-4.1); Glucose 107 mg/dL (70-100); HEMOLYSIS < 15 (0-50); Lipase 231 U/L (23-300); Potassium 3.8 mmol/L (3.4-5.1); Sodium 137 mmol/L (137-145); Total Protein 7.5 g/dL (6.3-8.2)
[2024-04-20 03:00] VITALS: BP 123/65; PULSE 56; RESP 16; O2SAT 99
--- NOTE | 2024-04-20 03:06 | DI.US.S_ITS ---
PROCEDURE: US ABDOMEN COMPLETE INDICATIONS: ab pain rupper and right lower TECHNIQUE: Real-time scanning was performed of the abdominal and retroperitoneal organs, with image documentation. COMPARISON: None. FINDINGS: Liver: Liver is enlarged and measures 18.6 cm. Normal liver parenchymal echotexture is seen. Gallbladder: No gallstones. No gallbladder wall thickening or pericholecystic fluid. No sonographic Brothers sign. Biliary ducts: Intrahepatic bile ducts are non-dilated. Extrahepatic bile duct caliber measures 3 mm. Normal is 6-7 mm or less in diameter, or 10 mm or less post-cholecystectomy. Pancreas: Visualized portions of the pancreas are sonographically normal. Spleen: Spleen is normal in size and homogeneous in echotexture. Kidneys: Kidneys are normal in size and echotexture. Right kidney measures 11.3 cm long; left kidney measures 11.2 cm long. No hydronephrosis or nephrolithiasis. No solid masses. Aorta: Visualized aorta is normal in caliber at less than 3 cm. Iliacs: Proximal common iliac arteries are normal in caliber at less than 2.5 cm. IVC: Intrahepatic inferior vena cava is patent. Miscellaneous: No free abdominal fluid. Appendix is not visualized. IMPRESSION: 1. Hepatomegaly. No discrete hepatic lesion. Normal liver parenchymal echotexture. 2. Otherwise unremarkable ultrasound examination of abdomen and bilateral kidneys. Dictated by: Misael Hernandez M.D. on 04/20/2024 at 9:09 Approved by: Misael Hernandez M.D. on 04/20/2024 at 9:10
[2024-04-20] MEDS: HYDROMORPHONE 0.5 MG INJ IV (03:10)
--- NOTE | 2024-04-20 03:27 | PC.NURSE ---
US at bedside
[2024-04-20 03:30] VITALS: BP 108/55; PULSE 56; O2SAT 98
[2024-04-20 04:00] VITALS: BP 117/67; PULSE 56; RESP 14; O2SAT 97
[2024-04-20 04:30] VITALS: BP 117/63; PULSE 55; RESP 14; O2SAT 97
[2024-04-20] MEDS: ONDANSETRON 4 MG ODT PREPACK 1 BOTTLE MISC (04:48)
== END 2024-04-20 04:59 | disposition home or self-care (01) ==
PROVIDERS: Emergency Provider Emergency Medicine; Family Provider Family Medicine; PCP Family Medicine
DX: R10.13 Epigastric pain (principal); R11.2 Nausea with vomiting, unspecified
CPT/HCPCS: 36415; 76700; 80053; 81003; 81015; 81025; 83690; 85025; 96374; 96375; 96376; 99284; J1171; J1885; J2405; J2470

== ENCOUNTER 2024-04-22 16:57 | Emergency (ER) | payer BC, SELFPAY ==
[2024-04-22] VITALS (9 sets, daily range): BP systolic 129–181; BP diastolic 74–87; PULSE 53–65; RESP 14; TEMP 36.5; O2SAT 97–100; BMI 21.1
--- NOTE | 2024-04-22 17:47 | DI.CT.S_ITS ---
PROCEDURE: CT ABDOMEN PELVIS W CON INDICATIONS: low abdominal pain TECHNIQUE: After the administration of intravenous contrast, axial sections acquired from the lung bases to the pubic symphysis. Coronal and sagittal reformats were performed. For radiation dose reduction, the following was used: automated exposure control, adjustment of mA and/or kV according to patient size. COMPARISON: None. FINDINGS: Image quality: Diagnostic. Lower Chest: No significant findings. ABDOMEN: Liver: No solid mass. Gallbladder: No radiopaque gallstones or wall thickening. Biliary ducts: No biliary dilation. Pancreas: No ductal dilation. Spleen: Size is within normal limits. Adrenal Glands: No adrenal nodules. Kidneys and Ureters: No hydronephrosis. No solid mass. No complex renal cystic lesion which requires follow up. Stomach and Bowel: Normal colonic caliber, without significant wall thickening. Normal appendix. Peritoneum: No abnormal intraperitoneal fluid. No free air. Ventral Wall: No significant ventral hernia. Abdominal Nodes: No retroperitoneal or mesenteric adenopathy by size criteria. Vessels: Aorta and inferior vena cava are normal in size. Dilated gonadal vasculature. PELVIS: Pelvic Organs: Ovaries are symmetric. Bladder: No bladder wall thickening, accounting for underdistention. Pelvic Nodes: No enlarged lymph nodes. Miscellaneous: No inguinal hernias are seen. Bones: No aggressive osseous abnormality. IMPRESSION: No acute findings to explain the patient's right lower quadrant pain. No nephrolithiasis. Normal gallbladder. Normal appendix. Symmetric ovaries. Dilated gonadal vasculature, left greater than right. Findings can be seen in the clinical setting of pelvic congestion syndrome. Dictated by: Aureliano Cowart M.D. on 04/22/2024 at 18:18 Approved by: Aureliano Cowart M.D. on 04/22/2024 at 18:20
[2024-04-22 17:59] LABS: Add Manual Diff / Slide Review NO; Basophils Absolute Auto 0 /uL (0-100); Basophils Percent Auto 0.9 % (0-2); Eosinophils Absolute Auto 400 /uL (0-450); Eosinophils Percent Auto 6.2 % (2-4); Hematocrit 39.2 % (36-46); Hemoglobin 12.9 g/dL (12.0-16.0); Lymphocytes Absolute Auto 2400 /uL (1100-4500); Lymphocytes Percent Auto 42.6 % (25-40); Mean Corpuscular HGB Conc 32.8 % (30-36); Mean Corpuscular Hemoglobin 27.8 PG (26-34); Mean Corpuscular Volume 84.8 fL (80-100); Monocytes Absolute Auto 500 /uL (0-900); Monocytes Percent Auto 8.7 % (3-14); Neutrophils Absolute Auto 2400 /uL (1500-7000); Neutrophils Percent Auto 41.6 % (50-75); Platelet Count 386 X10^3/uL (150-400); Red Blood Cell Count 4.62 X10^6/uL (4.0-5.2); Red Cell Distribution Width 14.6 % (11.6-14.8); White Blood Cell Count 5.7 X10^3/uL (4.5-11.0)
[2024-04-22] MEDS: MORPHINE 4 MG/ML INJ IV (18:00)
[2024-04-22] MEDS: ONDANSETRON 4 MG/2 ML INJ IV (18:01)
[2024-04-22] MEDS: SODIUM CHLORIDE 0.9% 1,000 ML 1000 ML IV (18:02)
[2024-04-22 18:05] LABS: Alanine Aminotransferase 15 IU/L (<35); Albumin 4.7 g/dL (3.5-5.0); Albumin Globulin Ratio 1.3 (1.0-2.8); Alkaline Phosphatase 83 U/L (38-126); Aspartate Aminotransferase 26 IU/L (14-36); BUN Creatinine Ratio 14.9 (6-22); Bilirubin Total 0.7 mg/dL (0.2-1.3); Blood Urea Nitrogen 14 mg/dL (7-17); Calcium 9.4 mg/dL (8.4-10.2); Carbon Dioxide 26 mmol/L (22-32); Chloride 101 mmol/L (98-107); Estimated Glomerular Filt Rate > 60 mL/min (>60); Globulin 3.5 g/dL (1.7-4.1); Glucose 110 mg/dL (70-100); HEMOLYSIS 18 (0-50); Potassium 3.9 mmol/L (3.4-5.1); Sodium 139 mmol/L (137-145); Total Protein 8.2 g/dL (6.3-8.2)
--- NOTE | 2024-04-22 18:13 | ED.ABDPAIN ---
HPI - Abdominal Pain General Chief Complaint: Abdominal Pain Stated Complaint: abd pain Time Seen by Provider: 04/22/24 17:43 Mode of arrival: Ambulatory History of Present Illness HPI narrative: 33-year-old female past medical history of epilepsy on lamotrigine, anxiety depression PTSD presents to the emergency department from home for evaluation of abdominal pain Nausea vomiting She states that the pain is to her lower abdomen. she denies any other symptoms such as headache visual disturbances chest pain shortness breath fever chills or any other GI / symptoms at this time. no trauma no falls not on any blood thinners To note patient was seen here on 04/20/2024 for similar symptoms, at that time did get ultrasound of the abdomen which did not show any acute findings. To note patient did not receive CT scan that day due to the fact that the CT scan machine was down. Related Data Previous Rx's Medication Instructions Recorded lamotrigine 25 mg tablet,extended 25 mg PO DAILY #30 tabs 12/22/22 release 24 hr ondansetron 4 mg disintegrating 4 mg PO Q8H PRN nausea and 04/20/24 tablet vomiting #10 tabs dicyclomine 10 mg capsule 10 mg PO BID 1 week #14 caps 04/22/24 famotidine 20 mg tablet (Pepcid) 20 mg PO DAILY 1 month #30 tabs 04/22/24 Allergies Allergy/AdvReac Type Severity Reaction Status Date / Time No Known Drug Allergies Allergy Verified 04/22/24 17:07 Review of Systems Review of Systems Narrative: General: Denies fever, chills, weight loss HEENT: Denies headache, eye drainage, eye irritation, head trauma, sore throat, voice change Cardiovascular: Denies any chest pain, palpitations, tachycardia Respiratory: Denies any shortness of breath, cough, wheeze, stridor GI/: positive abdominal pain, nausea, vomiting, denies diarrhea, bright red blood per rectum, melanotic stools, urinary frequency, urinary retention, dysuria, hematuria MSK: Denies any joint pain, muscle pains, swelling Skin: Denies any rashes, lesions, discoloration Neuro: Denies any headache, lightheadedness, dizziness, fainting, weakness Psych: Denies SI/HI Patient History Medical History History of IUFD History of placenta abruption Migraines PTSD (post-traumatic stress disorder) Depression Acute blood loss anemia Delivery by section using transverse incision of lower segment of uterus (~05/30/21) Trisomy 18 of fetus in current Epilepsy (~2001) Fibromyalgia (~2007) Chronic back pain (~1996) Surgical History Previous section H/O oral surgery (~2004) [place] teeth extracted (~2019) Family History Mother Hyperlipidemia Grandfather Myocardial infarction Grandmother History of heart attack Diabetes mellitus Hypertension Grandfather History of heart attack Hypertension Diabetes mellitus Father Hypertension Diabetes mellitus Grandmother No problems noted. Social History marital status: number of children: 0 household members: spouse and family (grandmother lives in MIL apartment) lives independently: Yes caregiver/support person: Yes housing: house pets and animals: Yes (2 fish) education level: college (Associate's degree) occupational status: employed current occupational exposures/hazards: No special calderon needs: No travel history: over 6 months ago seatbelt use: always water heater temp set < 120 deg: Yes working smoke detector in home: Yes fire extinguisher in home: Yes carbon monox detector in home: Yes firearms in home: Yes firearms unloaded and locked: Yes do you feel safe at home: Yes Smoking Status: Never smoker second hand exposure: No alcohol intake: former (rarely when not ) substance use type: does not use during the past year weight has: other (currently 14 months , currently back to approx pre- weight) well-balanced diet: daily or most days (tends not to eat enough if she doesn't track her foods) daily servings fruits/ve or more times/day caffeine: Yes (occasionally green tea) Type(s) of exercise: walking, other (hiking), running and normal ROM and activity frequency: daily duration: 30-45 minutes/day Smoking Status: Never smoker alcohol intake frequency: other Exam Narrative Exam Narrative: General: Cooperative, comfortable, well-developed, not in acute distress HEENT: Normocephalic, atraumatic, PERRLA, normal sclera, eyelids normal, Neck: Active full range of motion, atraumatic Chest: Normal to inspection, negative crepitus, no overlying erythema ecchymosis Respiratory: Normal respiratory effort, not in acute respiratory distress, clear to auscultation bilaterally negative cough, wheeze, tachypnea, rhonchi, rales Cardiology: Regular rate rhythm negative gallop, murmur, rubs GI/: Normal to inspection, soft, nonrigid, mild tenderness to palpation to the lower abdomen, exam deferred MSK: Full range of active range of motion of all 4 extremities, atraumatic Skin: No rashes lesions noted Neuro: Alert awake oriented x3, moves all 4 extremities spontaneously, cranial nerves intact, able to answer all questions appropriately follows commands appropriately Psych: Cooperative, negative suicidal or homicidal ideations Initial Vital Signs Initial Vital Signs: Vital Signs Temperature 97.7 F 04/22/24 17:07 Pulse Rate 65 04/22/24 17:07 Respiratory Rate 14 04/22/24 17:07 Blood Pressure 163/87 H 04/22/24 17:07 Pulse Oximetry 100 04/22/24 17:07 Oxygen Delivery Method Room Air 04/22/24 17:07 Course Orders Ordered: ED Orders 04/22/24 17:18 CBC Auto Diff [Complete Blood Count AUTO DIFF] Stat CMP [Comprehensive Metabolic Panel] Stat 04/22/24 17:47 CT abdomen pelvis w con Stat Discontinued Medications Sodium Chloride (Normal Saline 0.9%) 1,000 mls @ 1,000 mls/hr IV BOLUS ONE Stop: 04/22/24 18:46 Last Infusion: 04/22/24 18:56 Dose: Infused Documented By: Admin: 04/22/24 18:02 Dose: 1,000 mls/hr Documented By: SOCORRO Morphine Sulfate (Morphine 4 Mg/Ml Inj) 4 mg IV NOW ONE Stop: 04/22/24 17:48 Last Admin: 04/22/24 18:00 Dose: 4 mg Documented By: SOCORRO Ondansetron HCl (Ondansetron 4 Mg/2 Ml Inj) 4 mg IV NOW ONE Stop: 04/22/24 17:48 Last Admin: 04/22/24 18:01 Dose: 4 mg Documented By: SOCORRO Vital Signs Vital signs: Vital Signs - 8 hr 04/22/24 17:07 04/22/24 17:12 04/22/24 17:13 Temperature 97.7 F Pulse Rate 65 59 L Respiratory Rate 14 Blood Pressure 163/87 H 181/84 H Pulse Oximetry 100 100 Oxygen Delivery Method Room Air 04/22/24 17:13 04/22/24 17:30 04/22/24 17:30 Temperature Pulse Rate 61 53 L Respiratory Rate Blood Pressure 149/81 H Pulse Oximetry 100 99 Oxygen Delivery Method MDM - Abdominal Pain Differential Diagnosis Differential diagnosis: Likely abdominal pain, acute appendicitis, constipation, diverticulitis and small bowel obstruction Lab Data 04/22/24 17:18 04/22/24 17:18 Labs: Lab Results 04/22/24 Range/Units 17:18 WBC 5.7 (4.5-11.0) X10^3/uL RBC 4.62 (4.0-5.2) X10^6/uL Hgb 12.9 (12.0-16.0) g/dL Hct 39.2 (36-46) % MCV 84.8 (80-100) fL MCH 27.8 (26-34) PG MCHC 32.8 (30-36) % RDW 14.6 (11.6-14.8) % Plt Count 386 (150-400) X10^3/uL Neut % (Auto) 41.6 L (50-75) % Lymph % (Auto) 42.6 H (25-40) % [place] % (Auto) 8.7 (3-14) % Eos % (Auto) 6.2 H (2-4) % Baso % (Auto) 0.9 (0-2) % Neut # (Auto) 2400 (2479-2202) /uL Lymph # (Auto) 2400 (5540-3959) /uL [place] # (Auto) 500 (0-900) /uL Eos # (Auto) 400 (0-450) /uL Baso # (Auto) 0 (0-100) /uL Sodium 139 (137-145) mmol/L Potassium 3.9 (3.4-5.1) mmol/L Chloride 101 (98-107) mmol/L Carbon Dioxide 26 (22-32) mmol/L BUN 14 (7-17) mg/dL Creatinine 0.94 (0.52-1.04) mg/dL Estimated GFR > 60 (>60) mL/min BUN/Creatinine Ratio 14.9 (6-22) Glucose 110 H (70-100) mg/dL Calcium 9.4 (8.4-10.2) mg/dL Total Bilirubin 0.7 (0.2-1.3) mg/dL AST 26 (14-36) IU/L ALT 15 (<35) IU/L Alkaline Phosphatase 83 (38-126) U/L Total Protein 8.2 (6.3-8.2) g/dL Albumin 4.7 (3.5-5.0) g/dL Globulin 3.5 (1.7-4.1) g/dL Albumin/Globulin Ratio 1.3 (1.0-2.8) Imaging Data CT scan - abdomen/pelvis: Radiologist's Impression: [place] [address] CT Scan Report Signed Patient: Yessica Rae MR#: [id number] : 1990 Acct:[id number] Age/Sex: 33 / F Date of Service: 04/22/24 Loc: ED Accession Number: [id number] Procedure: CT abdomen pelvis w con Ordering Provider: Ezio Keyes MD PROCEDURE: CT ABDOMEN PELVIS W CON INDICATIONS: low abdominal pain TECHNIQUE: After the administration of intravenous contrast, axial sections acquired from the lung bases to the pubic symphysis. Coronal and sagittal reformats were performed. For radiation dose reduction, the following was used: automated exposure control, adjustment of mA and/or kV according to patient size. COMPARISON: None. FINDINGS: Image quality: Diagnostic. Lower Chest: No significant findings. ABDOMEN: Liver: No solid mass. Gallbladder: No radiopaque gallstones or wall thickening. Biliary ducts: No biliary dilation. Pancreas: No ductal dilation. Spleen: Size is within normal limits. Adrenal Glands: No adrenal nodules. Kidneys and Ureters: No hydronephrosis. No solid mass. No complex renal cystic lesion which requires follow up. Stomach and Bowel: Normal colonic caliber, without significant wall thickening. Normal appendix. Peritoneum: No abnormal intraperitoneal fluid. No free air. Ventral Wall: No significant ventral hernia. Abdominal Nodes: No retroperitoneal or mesenteric adenopathy by size criteria. Vessels: Aorta and inferior vena cava are normal in size. Dilated gonadal vasculature. PELVIS: Pelvic Organs: Ovaries are symmetric. Bladder: No bladder wall thickening, accounting for underdistention. Pelvic Nodes: No enlarged lymph nodes. Miscellaneous: No inguinal hernias are seen. Bones: No aggressive osseous abnormality. IMPRESSION: No acute findings to explain the patient's right lower quadrant pain. No nephrolithiasis. Normal gallbladder. Normal appendix. Symmetric ovaries. Dilated gonadal vasculature, left greater than right. Findings can be seen in the clinical setting of pelvic congestion syndrome. MDM Narrative Medical decision making narrative: 33-year-old female with a history of epilepsy on lamotrigine, anxiety depression PTSD presenting for intermittent lower abdominal pain has been ongoing persistent for the past several days was seen here previously for the same only had an ultrasound at that time given CT scan was down, she returns for persistent intermittent pain nothing making it better or worse. Has had normal bowel movement. History of 2 C sections previously. Lab work here unremarkable without any signs of leukocytosis anemia platelets normal, Chem panel unremarkable, patient not complaining of any urinary symptoms had normal urine sample [address] scan showing dilated gonadal vasculature possibly consistent with pelvic congestion syndrome however normal symmetric ovaries, patient will be sent home with symptomatic relief for her abdominal pain, Bentyl, Pepcid. She was instructed follow up with OBGYN as well as Gastroenterology in outpatient setting. She understands and agrees with this plan repeat abdominal exam soft nontender non peritoneal nature at time of discharge he is well-appearing nontoxic able to tolerate p.o. liquids and solids. Patient will be sent home with outpatient follow up she understands and agrees with this plan. Discharge Plan Departure Patient Disposition: Home Clinical Impression: Abdominal pain Instructions: DI for Abdominal Pain-Adult Activity Restrictions/Additional Instructions: please follow up with OBGYN and Gastroenterology in outpatient setting Please read the discharge instructions sheet carefully and bring all papers to all doctor follow-up visits, as it may contain information that your doctor may want to see. Disease processes change and evolve, if your symptoms worsen or if you develop any new symptoms that are concerning to you please return for evaluation. Your evaluation today does not show any evidence of any life-threatening/serious illnesses requiring admission to the hospital or surgery. Please follow-up with your doctor for re-evaluation in approximately 1 day. Seek immediate medical attention for any worrisome symptoms. *If you do not have a primary care provider please contact the [facility] Resource line at [phone]. They will ask some questions about your medical history and help get you set up with a doctor in the community. Prescriptions: New dicyclomine 10 mg capsule 10 mg PO BID 7 Days Qty: 14 0RF famotidine [Pepcid] 20 mg tablet 20 mg PO DAILY 30 Days Qty: 30 0RF No Action lamotrigine 25 mg tablet extended release 24hr 25 mg PO DAILY Qty: 30 3RF ondansetron 4 mg tablet,disintegrating 4 mg PO Q8H PRN (Reason: nausea and vomiting) Qty: 10 0RF Referrals: Norman Torres MD [Non-Staff] - Indigo Underwood MD [Primary Care Provider] - Nelda Ramirez DO [Physician] - Stand Alone Forms: Patient Portal/API/Survey
== END 2024-04-22 19:09 | disposition home or self-care (01) ==
PROVIDERS: Emergency Medicine; Emergency Provider Student in an Organized Health Care Education/Training Program; Family Provider Family Medicine; PCP Family Medicine
DX: R10.30 Lower abdominal pain, unspecified (principal); R11.2 Nausea with vomiting, unspecified
CPT/HCPCS: 74177; 80053; 85025; 96361; 96374; 96375; 99283; 99284; J2270; J2405; Q9967

== ENCOUNTER 2024-04-24 17:27 | Emergency (ER) | payer BC, SELFPAY ==
[2024-04-24] VITALS (8 sets, daily range): BP systolic 126–162; BP diastolic 62–88; PULSE 48–67; RESP 13–23; TEMP 36.4; O2SAT 94–100; BMI 21.1
--- NOTE | 2024-04-24 18:14 | DI.RAD.S_ITS ---
PROCEDURE: XR CHEST 1V INDICATIONS: chest pain TECHNIQUE: One view of the chest was acquired. COMPARISON: None. FINDINGS: Surgical changes and devices: None. Lungs and pleura: Lungs are clear. No pleural effusions or pneumothorax. Mediastinum: Mediastinal contours appear normal. Heart size is normal. Bones and chest wall: No suspicious bony lesions. Overlying soft tissues appear unremarkable. IMPRESSION: No acute cardiopulmonary abnormality is seen. Approved by: Moy Rae M.D. on 04/24/2024 at 18:49
--- NOTE | 2024-04-24 18:14 | EKG_ITS ---
[address] [address] Test Date: 2024-04-24 Pat Name: Yessica Rae Department: [facility] Room: Gender: Female Field Tech: : 1990 Requested By: Order Number: [id number] Reading MD: Hector Ashley MD Measurements Intervals [place] Rate: 53 P: 67 WI: 120 QRS: 75 QRSD: 84 T: 61 QT: 434 QTc: 407 Interpretive Statements Sinus bradycardia Electronically Signed On 04-25-2024 6:42:22 PDT by Hector Ashley MD
[2024-04-24 18:44] LABS: Add Manual Diff / Slide Review NO; Basophils Absolute Auto 0 /uL (0-100); Basophils Percent Auto 0.8 % (0-2); Eosinophils Absolute Auto 100 /uL (0-450); Eosinophils Percent Auto 1.2 % (2-4); Hematocrit 39.7 % (36-46); Hemoglobin 13.1 g/dL (12.0-16.0); Lymphocytes Absolute Auto 2200 /uL (1100-4500); Lymphocytes Percent Auto 36.5 % (25-40); Mean Corpuscular HGB Conc 33.1 % (30-36); Mean Corpuscular Hemoglobin 27.8 PG (26-34); Monocytes Absolute Auto 400 /uL (0-900); Monocytes Percent Auto 7.4 % (3-14); Neutrophils Absolute Auto 3300 /uL (1500-7000); Neutrophils Percent Auto 54.1 % (50-75); Platelet Count 392 X10^3/uL (150-400); Red Blood Cell Count 4.73 X10^6/uL (4.0-5.2); Red Cell Distribution Width 14.7 % (11.6-14.8); White Blood Cell Count 6.1 X10^3/uL (4.5-11.0)
[2024-04-24 18:49] LABS: INR 1.1 (0.9-1.3); Prothrombin Time 12.5 SECONDS (9.4-12.5)
[2024-04-24 18:52] LABS: PTT Partial Thromboplastin Tim 38 SECONDS (25.1-36.5)
[2024-04-24 18:54] LABS: Alanine Aminotransferase 15 IU/L (<35); Albumin 4.8 g/dL (3.5-5.0); Albumin Globulin Ratio 1.3 (1.0-2.8); Alkaline Phosphatase 86 U/L (38-126); Aspartate Aminotransferase 23 IU/L (14-36); BUN Creatinine Ratio 13.5 (6-22); Blood Urea Nitrogen 13 mg/dL (7-17); Calcium 9.6 mg/dL (8.4-10.2); Carbon Dioxide 25 mmol/L (22-32); Chloride 99 mmol/L (98-107); Creatine Kinase 52 U/L (30-135); Estimated Glomerular Filt Rate > 60 mL/min (>60); Globulin 3.6 g/dL (1.7-4.1); Glucose 122 mg/dL (70-100); HEMOLYSIS 15 (0-50); Lipase 167 U/L (23-300); Potassium 3.5 mmol/L (3.4-5.1); Sodium 136 mmol/L (137-145); Total Protein 8.4 g/dL (6.3-8.2)
[2024-04-24 19:05] LABS: NT-proBNP (BNP-Adult 18+) 74 pg/mL (<125); Troponin I < 0.012 ng/mL (0.01-0.034)
[2024-04-24] MEDS: MORPHINE 4 MG/ML INJ IV ×2 (19:06→20:20)
--- NOTE | 2024-04-24 19:29 | DI.CT.S_ITS ---
PROCEDURE: CT ANGIO CHEST PE PROTOCOL INDICATIONS: sob TECHNIQUE: After the administration of intravenous contrast, 2 mm thick sections acquired from the pulmonary apices to the posterior costophrenic angles. 3-dimensional maximum intensity projection (MIP) coronal and sagittal reformats were then acquired through the thorax. For radiation dose reduction, the following was used: automated exposure control, adjustment of mA and/or kV according to patient size. COMPARISON: [facility], CR, XR CHEST 1V, 04/24/2024, 18:36. FINDINGS: Image quality: Diagnostic. Pulmonary arteries: Pulmonary arteries are normal in size, and demonstrate no intraluminal filling defects to suggest central pulmonary embolism. Lower Neck: No enlarged lymph nodes. Thyroid: No thyroid nodules which require sonographic follow up, per consensus guidelines. Axillae: No enlarged lymph nodes. Chest Wall: Unremarkable. Bones: Unremarkable. Lungs and Pleura: No pneumothorax or pleural effusions. No consolidation or suspicious nodules. Heart: Heart size is normal. No pericardial effusion. Thoracic Vessels: No aortic aneurysm. Mediastinum and Ruthie: No enlarged lymph nodes. Esophagus: No wall thickening. No hiatal hernia. Upper Abdomen: Visualized upper abdomen solid organs and bowel loops appear normal. IMPRESSION: No acute pulmonary embolus. No acute abnormality is seen in the chest. Approved by: Moy Rae M.D. on 04/24/2024 at 20:01
--- NOTE | 2024-04-24 19:35 | ED_ITS ---
HPI - Chest Pain General Chief Complaint: Chest Pain Stated Complaint: chest px, SOB Time Seen by Provider: 04/24/24 19:29 History of Present Illness HPI narrative: Patient is a 33-year-old female with past medical history of epilepsy on lamotrigine, comes into the ED from home for evaluation of left-sided chest pain, she states it is reproducible on palpation, denies any trauma or falls, she was seen here recently for lower abdominal pain, was diagnosed with a pelvic congestion syndrome, she states that the abdomen is not causing her any issues not tender left-sided chest. She denies any shortness of breath, she denies any recent travel no known sick contacts. She states that moving does make it worse. She states that it is worse with deep breath but more secondary to causing pain. She denies any other symptoms such as headache visual disturbances fever chills nausea vomiting abdominal pain or any other GI/ symptoms time. Related Data Previous Rx's Medication Instructions Recorded lamotrigine 25 mg tablet,extended 25 mg PO DAILY #30 tabs 12/22/22 release 24 hr ondansetron 4 mg disintegrating 4 mg PO Q8H PRN nausea and 04/20/24 tablet vomiting #10 tabs dicyclomine 10 mg capsule 10 mg PO BID 1 week #14 caps 04/22/24 famotidine 20 mg tablet (Pepcid) 20 mg PO DAILY 1 month #30 tabs 04/22/24 metoclopramide HCl 5 mg tablet 5 mg PO QACHS PRN nausea and 04/25/24 vomiting #20 tabs Allergies Allergy/AdvReac Type Severity Reaction Status Date / Time No Known Drug Allergies Allergy Verified 04/22/24 17:07 Review of Systems Review of Systems Narrative: General: Denies fever, chills, weight loss HEENT: Denies headache, eye drainage, eye irritation, head trauma, sore throat, voice change Cardiovascular: Positive chest pain, denies palpitations, tachycardia Respiratory: Positive shortness breath, denies cough wheeze stridor GI/: Denies any abdominal pain, nausea, vomiting, diarrhea, bright red blood per rectum, melanotic stools, urinary frequency, urinary retention, dysuria, hematuria MSK: Denies any joint pain, muscle pains, swelling Skin: Denies any rashes, lesions, discoloration Neuro: Denies any headache, lightheadedness, dizziness, fainting, weakness Psych: Denies SI/HI Patient History Medical History History of IUFD History of placenta abruption Migraines PTSD (post-traumatic stress disorder) Depression Acute blood loss anemia Delivery by section using transverse incision of lower segment of uterus (~05/30/21) Trisomy 18 of fetus in current Epilepsy (~2001) Fibromyalgia (~2007) Chronic back pain (~1996) Surgical History Previous section H/O oral surgery (~2004) [place] teeth extracted (~2019) Family History Mother Hyperlipidemia Grandfather Myocardial infarction Grandmother History of heart attack Diabetes mellitus Hypertension Grandfather History of heart attack Hypertension Diabetes mellitus Father Hypertension Diabetes mellitus Grandmother No problems noted. Social History marital status: number of children: 0 household members: spouse and family (grandmother lives in MIL apartment) lives independently: Yes caregiver/support person: Yes housing: house pets and animals: Yes (2 fish) education level: college (Associate's degree) occupational status: employed current occupational exposures/hazards: No special calderon needs: No travel history: over 6 months ago seatbelt use: always water heater temp set < 120 deg: Yes working smoke detector in home: Yes fire extinguisher in home: Yes carbon monox detector in home: Yes firearms in home: Yes firearms unloaded and locked: Yes do you feel safe at home: Yes Smoking Status: Never smoker second hand exposure: No alcohol intake: former (rarely when not ) substance use type: does not use during the past year weight has: other (currently 14 months , currently back to approx pre- weight) well-balanced diet: daily or most days (tends not to eat enough if she doesn't track her foods) daily servings fruits/ve or more times/day caffeine: Yes (occasionally green tea) Type(s) of exercise: walking, other (hiking), running and normal ROM and activity frequency: daily duration: 30-45 minutes/day Smoking Status: Never smoker alcohol intake frequency: other Exam Narrative Exam Narrative: General: Cooperative, comfortable, well-developed, not in acute distress HEENT: Normocephalic, atraumatic, PERRLA, normal sclera, eyelids normal, Neck: Active full range of motion, atraumatic Chest: Normal to inspection, negative crepitus, no overlying erythema ecchymosis there is reproducible pain on palpation to the left side of the chest, no overlying erythema ecchymosis rash or gross deformity Respiratory: Normal respiratory effort, not in acute respiratory distress, clear to auscultation bilaterally negative cough, wheeze, tachypnea, rhonchi, rales Cardiology: Regular rate rhythm negative gallop, murmur, rubs GI/: Normal to inspection, soft, nonrigid, no tenderness to palpation, exam deferred MSK: Full range of active range of motion of all 4 extremities, atraumatic Skin: No rashes lesions noted Neuro: Alert awake oriented x3, moves all 4 extremities spontaneously, cranial nerves intact, able to answer all questions appropriately follows commands appropriately Psych: Cooperative, negative suicidal or homicidal ideations Initial Vital Signs Initial Vital Signs: Vital Signs Temperature 97.6 F 04/24/24 18:10 Pulse Rate 56 L 04/24/24 18:10 Respiratory Rate 18 04/24/24 18:10 Blood Pressure 162/88 H 04/24/24 18:10 Pulse Oximetry 100 04/24/24 18:10 Oxygen Delivery Method Room Air 04/24/24 18:10 Course Orders Ordered: Discontinued Medications Aspirin (Aspirin 81 Mg Chew Tab) 324 mg PO NOW ONE Stop: 04/24/24 18:15 Last Admin: 04/24/24 21:19 Dose: Not Given Documented By: ERLINDA Ketorolac Tromethamine (Ketorolac 30 Mg/Ml Vial) 30 mg IV NOW ONE Stop: 04/24/24 20:14 Last Admin: 04/24/24 20:20 Dose: 30 mg Documented By: ERLINDA Morphine Sulfate (Morphine 4 Mg/Ml Inj) 4 mg IV NOW ONE Stop: 04/24/24 19:01 Last Admin: 04/24/24 19:06 Dose: 4 mg Documented By: NGUYỄN Morphine Sulfate (Morphine 4 Mg/Ml Inj) 4 mg IV NOW ONE Stop: 04/24/24 20:14 Last Admin: 04/24/24 20:20 Dose: 4 mg Documented By: ERLINDA Oxycodone/Acetaminophen (Oxycodone/Apap 5/325 Prepack) 1 bottle MISC DIRECTED ONE Stop: 04/24/24 21:19 Last Admin: 04/24/24 21:30 Dose: 1 bottle Documented By: CHEVY Vital Signs Vital signs: Vital Signs - 8 hr 04/24/24 18:10 04/24/24 18:49 04/24/24 19:00 Temperature 97.6 F Pulse Rate 56 L 48 L Respiratory Rate 18 23 Blood Pressure 162/88 H 126/77 Pulse Oximetry 100 Oxygen Delivery Method Room Air 04/24/24 19:00 04/24/24 19:30 04/24/24 19:30 Temperature Pulse Rate 67 48 L Respiratory Rate 17 13 Blood Pressure 139/74 Pulse Oximetry 94 97 Oxygen Delivery Method Room Air 04/24/24 19:53 04/24/24 19:53 04/24/24 20:00 Temperature Pulse Rate 54 L Respiratory Rate Blood Pressure 144/74 H 129/62 Pulse Oximetry 100 Oxygen Delivery Method 04/24/24 20:00 04/24/24 20:30 04/24/24 20:30 Temperature Pulse Rate 50 L 50 L Respiratory Rate 17 Blood Pressure 140/75 Pulse Oximetry 100 98 Oxygen Delivery Method MDM - Chest Pain Differential Diagnosis Differential diagnosis: Likely pneumothorax, costochondritis, chest pain and other (Pulmonary embolism, electrolyte abnormality, pneumonia, ACS) Lab Data 04/24/24 18:32 04/24/24 18:32 Labs: Lab Results 04/24/24 04/24/24 Range/Units 18:32 19:52 WBC 6.1 (4.5-11.0) X10^3/uL RBC 4.73 (4.0-5.2) X10^6/uL Hgb 13.1 (12.0-16.0) g/dL Hct 39.7 (36-46) % MCV 84.0 (80-100) fL MCH 27.8 (26-34) PG MCHC 33.1 (30-36) % RDW 14.7 (11.6-14.8) % Plt Count 392 (150-400) X10^3/uL Neut % (Auto) 54.1 (50-75) % Lymph % (Auto) 36.5 (25-40) % Snyder % (Auto) 7.4 (3-14) % Eos % (Auto) 1.2 L (2-4) % Baso % (Auto) 0.8 (0-2) % Neut # (Auto) 3300 (7758-3612) /uL Lymph # (Auto) 2200 (8429-3001) /uL Snyder # (Auto) 400 (0-900) /uL Eos # (Auto) 100 (0-450) /uL Baso # (Auto) 0 (0-100) /uL PT 12.5 (9.4-12.5) SECONDS INR 1.1 (0.9-1.3) APTT 38 H (25.1-36.5) SECONDS Sodium 136 L (137-145) mmol/L Potassium 3.5 (3.4-5.1) mmol/L Chloride 99 (98-107) mmol/L Carbon Dioxide 25 (22-32) mmol/L BUN 13 (7-17) mg/dL Creatinine 0.96 (0.52-1.04) mg/dL Estimated GFR > 60 (>60) mL/min BUN/Creatinine Ratio 13.5 (6-22) Glucose 122 H (70-100) mg/dL Calcium 9.6 (8.4-10.2) mg/dL Magnesium 2.0 (1.6-2.3) mg/dL Total Bilirubin 1.0 (0.2-1.3) mg/dL AST 23 (14-36) IU/L ALT 15 (<35) IU/L Alkaline Phosphatase 86 (38-126) U/L Total Creatine Kinase 52 (30-135) U/L Troponin I < 0.012 (0.01-0.034) ng/mL NT-Pro-B Natriuret Pep 74 (<125) pg/mL Total Protein 8.4 H (6.3-8.2) g/dL Albumin 4.8 (3.5-5.0) g/dL Globulin 3.6 (1.7-4.1) g/dL Albumin/Globulin Ratio 1.3 (1.0-2.8) Lipase 167 (23-300) U/L SARS-CoV-2 (PCR) Negative (Negative) Influenza A (RT-PCR) Flu a negative (NEGATIVE) Influenza B (RT-PCR) Flu b negative (NEGATIVE) RSV (PCR) Negative (Negative) Imaging Data Chest x-ray: Radiologist's Impression: [address] [address] XRay Report Signed Patient: Yessica Rae MR#: [id number] : 1990 Acct:[id number] Age/Sex: 33 / F Date of Service: 04/24/24 Loc: ED Accession Number: [id number] Procedure: XR chest 1V Ordering Provider: Jhonatan Boles MD PROCEDURE: XR CHEST 1V INDICATIONS: chest pain TECHNIQUE: One view of the chest was acquired. COMPARISON: None. FINDINGS: Surgical changes and devices: None. Lungs and pleura: Lungs are clear. No pleural effusions or pneumothorax. Mediastinum: Mediastinal contours appear normal. Heart size is normal. Bones and chest wall: No suspicious bony lesions. Overlying soft tissues appear unremarkable. IMPRESSION: No acute cardiopulmonary abnormality is seen. CT scan - chest: Radiologist's Impression: [place] [address] CT Scan Report Signed Patient: Yessica Rae MR#: [id number] : 1990 Acct:[id number] Age/Sex: 33 / F Date of Service: 04/24/24 Loc: ED Accession Number: [id number] Procedure: CT angio chest PE protocol Ordering Provider: Drew Garcia D.O. PROCEDURE: CT ANGIO CHEST PE PROTOCOL INDICATIONS: sob TECHNIQUE: After the administration of intravenous contrast, 2 mm thick sections acquired from the pulmonary apices to the posterior costophrenic angles. 3-dimensional maximum intensity projection (MIP) coronal and sagittal reformats were then acquired through the thorax. For radiation dose reduction, the following was used: automated exposure control, adjustment of mA and/or kV according to patient size. [facility] 18[facility]. FINDINGS: Image quality: Diagnostic. Pulmonary arteries: Pulmonary arteries are normal in size, and demonstrate no intraluminal filling defects to suggest central pulmonary embolism. Lower Neck: No enlarged lymph nodes. Thyroid: No thyroid nodules which require sonographic follow up, per consensus guidelines. Axillae: No enlarged lymph nodes. Chest Wall: Unremarkable. Bones: Unremarkable. Lungs and Pleura: No pneumothorax or pleural effusions. No consolidation or suspicious nodules. Heart: Heart size is normal. No pericardial effusion. Thoracic Vessels: No aortic aneurysm. Mediastinum and Ruthie: No enlarged lymph nodes. Esophagus: No wall thickening. No hiatal hernia. Upper Abdomen: Visualized upper abdomen solid organs and bowel loops appear normal. IMPRESSION: No acute pulmonary embolus. No acute abnormality is seen in the chest. ECG Data Interpretation: EKG interpreted ED physician sinus bradycardia 53 beats per minute QTC [address] changes no STEMI MDM Narrative Medical decision making narrative: Patient is a 33-year-old female with a past medical history of epilepsy on lamotrigine presenting from the emergency department from home for evaluation of left-sided chest pain. Have seen this patient yesterday for lower abdominal pain, lab work imaging at that time more consistent with pelvic congestion syndrome. She presents today now complaining of left-sided chest pain which she did not previously. On exam she has tenderness to palpation of reproducible pain with motion of her left upper extremity and chest wall, overlying the area of concern there is no rash ecchymosis or gross deformity. She did have significant improvement of her symptoms after administration of medications here. Patient did have lab work imaging EKG performed here in the emergency department, EKGs only showing sinus bradycardia no ischemic changes, chest x-ray without any acute cardiopulmonary abnormalities, given patient's severity of symptoms did obtain CTA of the chest, no pulmonary embolism no pneumothorax no acute findings within the chest wall. Patient did have troponin negative, her lab work was unremarkable, viral panel negative, given patient with reproducible pain to palpation to the left chest wall as well as with motion symptoms more likely secondary to costochondritis. Patient heart score of 0. She will be sent home with symptomatic relief instructed to follow up with primary care. She was given strict return precautions she verbalized understanding of this and agrees to being discharged home follow up Discharge Plan Departure Patient Disposition: Home Clinical Impression: Chest pain Activity Restrictions/Additional Instructions: Please follow up with GI and OBGYN in outpatient setting Please read the discharge instructions sheet carefully and bring all papers to all doctor follow-up visits, as it may contain information that your doctor may want to see. Disease processes change and evolve, if your symptoms worsen or if you develop any new symptoms that are concerning to you please return for evaluation. Your evaluation today does not show any evidence of any life- threatening/serious illnesses requiring admission to the hospital or surgery. Please follow-up with your doctor for re-evaluation in approximately 1 day. Seek immediate medical attention for any worrisome symptoms. *If you do not have a primary care provider please contact the [facility] Resource line at [phone]. They will ask some questions about your medical history and help get you set up with a doctor in the community. Prescriptions: No Action lamotrigine 25 mg tablet extended release 24hr 25 mg PO DAILY Qty: 30 3RF metoclopramide HCl 5 mg tablet 5 mg PO QACHS PRN (Reason: nausea and vomiting) Qty: 20 0RF ondansetron 4 mg tablet,disintegrating 4 mg PO Q8H PRN (Reason: nausea and vomiting) Qty: 10 0RF dicyclomine 10 mg capsule 10 mg PO BID 7 Days Qty: 14 0RF famotidine [Pepcid] 20 mg tablet 20 mg PO DAILY 30 Days Qty: 30 0RF Referrals: Norman Torres MD [Non-Staff] - Indigo Underwood MD [Primary Care Provider] - Nelda Ramirez DO [Physician] - Stand Alone Forms: Patient Portal/API/Survey
[2024-04-24] MEDS: KETOROLAC 30 MG/ML VIAL IV (20:20)
[2024-04-24 20:41] LABS: Influenza A - CEPHEID Flu A NEGATIVE (NEGATIVE); Influenza B - CEPHEID Flu B NEGATIVE (NEGATIVE); Respiratory Syncytial Virus Negative (Negative)
[2024-04-24 20:44] LABS: COVID-19 CEPHEID 4-PLEX PCR Negative (Negative)
[2024-04-24] MEDS: OXYCODONE/APAP 5/325 PREPACK 1 BOTTLE MISC (21:30)
== END 2024-04-24 21:42 | disposition home or self-care (01) ==
PROVIDERS: Emergency Medicine; Emergency Provider Student in an Organized Health Care Education/Training Program; Family Provider Family Medicine; PCP Family Medicine
DX: R07.9 Chest pain, unspecified (principal); R06.02 Shortness of breath; R00.1 Bradycardia, unspecified
CPT/HCPCS: 0241U; 36415; 71045; 71275; 80053; 82550; 83690; 83735; 83880; 84484; 85025; 85610; 85730; 93005; 93010; 96374; 96375; 96376; 99284; J1885; J2270

== ENCOUNTER 2024-05-01 14:31 | Day surgery (SDC) | payer BC, SELFPAY ==
--- NOTE | 2024-05-01 | PATH_ITS ---
[facility] Accession Number: [id number] No. of containers..02 Tissue . 01 Material submitted: . PART A: duodenum - DUODENUM PART B: gastrointestinal site - ANTRUM . 01 Diagnosis: Part A: DUODENUM: Duodenal mucosa with mildly increased intraepithelial lymphocytes, with preserved villous architecture. See comment. . Specimen Comments: Prominent intraepithelial lymphocytes are a nonspecific finding but may be seen in a variety of conditions including early onset or treated celiac sprue. If celiac disease is suspected clinically, correlation with serologic studies is recommended. . Part B: ANTRUM: Gastric mucosa with mild chronic inflammation. No Helicobacter organisms identified. No intestinal metaplasia, dysplasia, or malignancy identified. [facility] 05/07/20241450 Local . 01 Electronically signed: . Moisés Zuñiga MD, Pathologist NPI- [id number] . 01 Gross description: . Part A: DUODENUM: Received in formalin are 2 fragment(s) of veras, soft tissue measuring 0.1 x 0.1 x 0.1 cm to 0.4 x 0.4 x 0.2 cm submitted entirely in 1 cassette(s) . Part B: ANTRUM: Received in formalin are 2 fragment(s) of veras, soft tissue measuring 0.1 x 0.1 x 0.1 cm to 0.6 x 0.2 x 0.1 cm submitted entirely in 1 cassette(s) /[facility] 05/07/20241450 Local . 01 Microscopic: . Part B: ANTRUM: An immunohistochemical stain was performed to evaluate for Helicobacter organisms and is negative. The control stains appropriately. * This test was developed and the performance characteristics were validated by [facility]. It has not been cleared or approved by the Food and Drug Administration. . 01 Pathologist provided ICD-10: K29.50, K31.9 . 01 CPT . 734197, 827585, Z61037 Specimen Comment: A courtesy copy of this report has been sent to [phone] Performed at: [address] [id number] MD Moisés Zuñiga MD Phone: [phone]
[2024-05-01] MEDS: LACTATED RINGERS 1,000 ML 100 ML IV (14:59)
[2024-05-01 15:01] VITALS: BP 132/80; PULSE 74; RESP 16; TEMP 36.6; O2SAT 99
--- NOTE | 2024-05-01 15:17 | PM.HP.IH.1 ---
History of Present Illness History of Present Illness Date Patient Seen: 05/01/24 Time Patient Seen: 15:17 Chief complaint: EGD & Colonoscopy Narrative: Yessica is a 33-year-old woman who presents with several weeks of severe abdominal pain. The pain is present all the time but is worse after she tries to eat anything. She describes the pain is centrally located in her abdomen. She was in the ER on 04/24. She had a CT scan and an ultrasound which were unrevealing. Nothing seems to make the pain better. [facility] Medical History History of IUFD History of placenta abruption Migraines PTSD (post-traumatic stress disorder) Depression Acute blood loss anemia Delivery by section using transverse incision of lower segment of uterus (~05/30/21) Trisomy 18 of fetus in current Epilepsy (~2001) Fibromyalgia (~2007) Chronic back pain (~1996) Surgical History Previous section H/O oral surgery (~2004) [place] teeth extracted (~2019) Family History Mother Hyperlipidemia Grandfather Myocardial infarction Grandmother History of heart attack Diabetes mellitus Hypertension Grandfather History of heart attack Hypertension Diabetes mellitus Father Hypertension Diabetes mellitus Grandmother No problems noted. Social History marital status: number of children: 0 household members: spouse and family (grandmother lives in MIL apartment) lives independently: Yes caregiver/support person: Yes housing: house pets and animals: Yes (2 fish) education level: college (Associate's degree) occupational status: employed current occupational exposures/hazards: No special calderon needs: No travel history: over 6 months ago seatbelt use: always water heater temp set < 120 deg: Yes working smoke detector in home: Yes fire extinguisher in home: Yes carbon monox detector in home: Yes firearms in home: Yes firearms unloaded and locked: Yes do you feel safe at home: Yes Smoking Status: Never smoker second hand exposure: No alcohol intake: current substance use type: does not use during the past year weight has: other (currently 14 months , currently back to approx pre- weight) well-balanced diet: daily or most days (tends not to eat enough if she doesn't track her foods) daily servings fruits/ve or more times/day caffeine: Yes (occasionally green tea) Type(s) of exercise: walking, other (hiking), running and normal ROM and activity frequency: daily duration: 30-45 minutes/day Meds Home Medications and Allergies Home Medications Medication Instructions Recorded Confirmed Type lamotrigine 25 mg tablet,extended 25 mg PO DAILY #30 tabs 12/22/22 04/28/24 Rx release 24 hr ondansetron 4 mg disintegrating 4 mg PO Q8H PRN nausea and 04/20/24 04/28/24 Rx tablet vomiting #10 tabs famotidine 20 mg tablet (Pepcid) 20 mg PO DAILY 1 month #30 tabs 04/22/24 04/28/24 Rx metoclopramide HCl 5 mg tablet 5 mg PO QACHS PRN nausea and 04/25/24 04/28/24 Rx vomiting #20 tabs hydrocodone 5 mg-acetaminophen 325 1 tab PO Q6H PRN pain #20 tabs 04/28/24 04/28/24 Rx mg tablet lamotrigine 250 mg tablet,extended 250 mg PO DAILY 04/28/24 04/28/24 History release 24 hr (Lamictal XR) lorazepam 0.5 mg tablet mg PO 04/28/24 04/28/24 History sodium,potassium,mag sulfates 17.5 See Rx Instructions PO .COMPLEX 04/29/24 Rx gram-3.13 gram-1.6 gram oral soln #354 mL (Suprep Bowel Prep Kit) famotidine 20 mg tablet 20 mg PO DAILY 05/01/24 05/01/24 History lamotrigine 25 mg tablet,extended 25 mg PO DAILY 05/01/24 05/01/24 History release 24 hr (Lamictal XR) lamotrigine 250 mg tablet,extended 250 mg PO ONCE PM 05/01/24 05/01/24 History release 24 hr (Lamictal XR) Allergies Allergy/AdvReac Type Severity Reaction Status Date / Time No Known Drug Allergies Allergy Verified 05/01/24 15:13 Exam Vital Signs (past 8 hours): - 03/27/25 15:01 Temperature 98 F Pulse Rate 74 Respiratory Rate 16 Blood Pressure 132/80 Pulse Oximetry 99 Oxygen Delivery Method Room Air Oxygen Delivery Method Room Air Const General: No acute distress Resp Effort & Inspection: normal respiratory effort Assessment & Plan Assessment and plan (1) Abdominal pain: Qualifiers: Abdominal location: generalized Qualified Code(s): R10.84 - Generalized abdominal pain Status: Acute Plan We discussed the risks and benefits of EGD and colonoscopy. She would like to proceed. If no source for pain is found she can follow up with me for additional evaluation. Time-Based Coding :: [TOTAL MINUTES] spent with patient and on the chart (including review of chart, obtaining history, exam, reviewing outside data, placing orders, documenting exam and treatment plan, and counseling patient) on [DATE]. [employer]EE [employer] Document charge(s): No
--- NOTE | 2024-05-01 16:44 | PM.OP.EC ---
Operative Date/Time/Diagnoses Date of procedure: 05/01/24 Time of procedure: 16:44 Pre-op diagnosis: Abdominal pain Post-op diagnosis: same Procedure & Clinicians Study performed: EGD (colonoscopy was aborted due to inadequate prep) Same procedure as scheduled: No Surgeon: Devante Murillo Procedure Notes Procedure in detail: Surgeon: Devante Murillo MD Anesthesia: Vern Hernandez D.O. Procedure in detail: A timeout was performed. A bite blocked was placed and monitors were attached to the patient. The patient was positioned in the left lateral decubitus position. Sedation was administered. Once the patient was sedated the endoscope was inserted through the bite block and passed through the esophagus and stomach and into the duodenum. The duodenal mucosa appeared normal. We performed random biopsies with the cold forceps. We then withdrew the scope into the stomach. The antrum appeared normal. We performed random biopsies with cold forceps. The endoscope was retroflexed and no hiatal hernia was seen. The endoscope was straightned and withdrawn into the esophagus. No abnormalities were found in the esophagus. EGD findings: Grossly normal EGD Next we repositioned the patient for a colonoscopy. A digital rectal exam was performed and was normal. The colonoscope was inserted and advanced into the rectum. The prep was inadequate to safely advance the scope and the procedure was terminated. Colonoscopy findings: Inadequate prep Total procedural EBL: 2 mL Scope withdrawal time: Not applicable Sedation minutes: 15 minutes Post-procedure Disposition: PACU
[2024-05-01 16:49] VITALS: BP 125/81; PULSE 78; RESP 20; TEMP 36.4; O2SAT 99
[2024-05-01 16:55] VITALS: BP 131/85; PULSE 75; RESP 15; TEMP 36.4; O2SAT 99
[2024-05-01 17:08] VITALS: BP 129/79; PULSE 75; RESP 16; TEMP 36.4; O2SAT 99
== END 2024-05-01 17:13 | disposition home or self-care (01) ==
PROVIDERS: Family Provider Family Medicine; PCP Family Medicine; Referring Provider Family Medicine; Visit Provider Surgery
PROC: 0DJ08ZZ Inspection of Upper Intestinal Tract, Via Natural or Artificial Opening Endoscopic (ICD-10-PCS; CPT 43239; principal; 2024-05-01 15:30)
PROC: 0DJD8ZZ Inspection of Lower Intestinal Tract, Via Natural or Artificial Opening Endoscopic (ICD-10-PCS; CPT 45378; 2024-05-01 15:30)
DX: R10.9 Unspecified abdominal pain (principal); Z53.09 Procedure and treatment not carried out because of other contraindication; K29.50 Unspecified chronic gastritis without bleeding
CPT/HCPCS: 43239; 45378; J2704

== ENCOUNTER → 2025-02-02 15:23 | Outpatient (CLI) | payer BC, SELFPAY ==
[2025-02-02 16:36] LABS: Natera Collection Specimen Collected
[2025-02-02 17:08] LABS: Add Manual Diff / Slide Review NO; Hematocrit 35.7 % (36-46); Hemoglobin 12.2 g/dL (12.0-16.0); Lymphocytes Absolute Auto 1700 /uL (1100-4500); Mean Corpuscular HGB Conc 34.2 % (30-36); Mean Corpuscular Hemoglobin 28.6 PG (26-34); Mean Corpuscular Volume 83.8 fL (80-100); Platelet Count 304 X10^3/uL (150-400)
[2025-02-02 17:21] LABS: Appearance Urine UA CLEAR; Bilirubin Urine UA NEGATIVE (NEGATIVE); Color Urine UA YELLOW; Glucose Urine UA NEGATIVE (Negative); Ketones Urine UA TRACE (NEGATIVE); Leukocyte Esterase Urine UA NEGATIVE (NEGATIVE); Nitrite Urine UA NEGATIVE (Negative); Occult Blood Urine UA NEGATIVE (Negative); Protein Urine UA NEGATIVE (Negative); Specific Gravity Urine UA >=1.030 (1.000-1.035); Urobilinogen Urine UA 0.2 E.U./dL (0.2)
[2025-02-02 17:24] LABS: pH Urine UA 5.5 (4.5-8.0)
[2025-02-03 16:10] LABS: HIV 1 & 2 Ab/Ag 4th Gen Combo NEGATIVE (NEGATIVE); Hep C Virus Ab w/Reflex Quant NEGATIVE s/c (NEGATIVE); Hepatitis B Surface Antigen NEGATIVE s/c (NEGATIVE)
== END ==
PROVIDERS: PCP Family Medicine; Referring Provider Family Medicine; Visit Provider Family Medicine
DX: G40.909 Epilepsy, unspecified, not intractable, without status epilepticus (principal); O09.899 Supervision of other high risk pregnancies, unspecified trimester; O99.351 Diseases of the nervous system complicating pregnancy, first trimester
CPT/HCPCS: 36415; 80055; 80175; 81003; 86787; 86803; 86850; 86900; 86901; 87086; 87389